=== PATIENT | female | born 1930 | race Caucasian/White ===

== ENCOUNTER 2017-04-23 22:19 | Emergency (ER) | payer MEDICARE, BC ==
--- NOTE | 2017-04-23 23:45 | ED ---
Chato Richardson Alok, scribed for Tavo Conde MD on 04/23/17 at 2335 . Head Injury - HPI Summary HPI Summary: 86F presents to the ED with lip and cheek swelling following fall. Pt fall was unwitnessed but [facility] staff report she was not using her walker and that her shoe lace may have been untied. PMHx includes dementia. - History Of Current Complaint Chief Complaint: EDHeadInjury Stated Complaint: FALL Time Seen by Provider: 04/23/17 23:26 Hx Obtained From: Patient, Family/Site Medical Director Hx From Patient Unobtainable Due To: Dementia Mechanism Of Injury: Fall From Height Of: Onset/Duration: Started Hours Ago, Traumatic, Still Present Severity Currently: Moderate Severity Initially: Moderate Pain Intensity: 2 Pain Scale Used: 0-10 Numeric Location: Discrete At: - lip and cheek - Allergies/Home Medications Allergies/Adverse Reactions: Allergies Allergy/AdvReac Type Severity Reaction Status Date / Time No Known Allergies Allergy Verified 05/31/16 03:05 PMH/Surg Hx/FS Hx/Imm Hx Endocrine/Hematology History: Denies: Hx Diabetes Cardiovascular History: Reports: Hx Hypertension Denies: Hx Pacemaker/ICD History: Denies: Hx Renal Disease, Other Problems/Disorders - bladder prolapse per ED report Sensory History: Reports: Hx Contacts or Glasses, Hx Hearing Aid Opthamlomology History: Reports: Hx Contacts or Glasses Neurological History: Reports: Hx Dementia Psychiatric History: Denies: Hx Panic Disorder - Surgical History Surgery Procedure, Year, and Place: hysterectomy, year unknown. CHOLYCESTECTOMY. CATARACT Infectious Disease History: Denies: Traveled Outside the [place] in Last 30 Days - Family History Known Family History: Positive: Unknown - Unobtainable due to pt poor historian - Social History Occupation: Retired Lives: [facility] Alcohol Use: Rare Hx Substance Use: No Substance Use Type: Reports: None Hx Tobacco Use: Yes Smoking Status (MU): Former Smoker Review of Systems Negative: Fever Positive: Edema - lip and cheek All Other Systems Reviewed And Are Negative: Yes Physical Exam Triage Information Reviewed: Yes Vital Signs On Initial Exam: Initial Vitals Temp Pulse Resp BP Pulse Ox 97.7 F 54 18 177/67 94 04/23/17 22:23 04/23/17 22:23 04/23/17 22:23 04/23/17 22:23 04/23/17 22:23 Vital Signs Reviewed: Yes Appearance: Positive: Well-Appearing, No Pain Distress Skin: Positive: Warm Head/Face: Positive: Other - mild sts and tendedrness rt infraorbital area Eyes: Positive: LILIA ENT: Positive: Hearing grossly normal Neck: Positive: Supple, Nontender Respiratory/Lung Sounds: Positive: Breath Sounds Present Cardiovascular: Positive: RRR Abdomen Description: Positive: Nontender, Soft Musculoskeletal: Positive: Strength/ROM Intact Neurological: Positive: Alert, Oriented to Person Place, Time Psychiatric: Positive: Affect/Mood Appropriate - [place] Coma Scale Best Eye Response: 4 - Spontaneous Best Motor Response: 6 - Obeys Commands Best Verbal Response: 5 - Oriented Diagnostics - Vital Signs Vital Signs Temp Pulse Resp BP Pulse Ox 04/23/17 22:23 97.7 F 54 18 177/67 94 - Laboratory Lab Statement: Any lab studies that have been ordered have been reviewed, and results considered in the medical decision making process. - CT Brain CT CT Interpretation: Positive (See Comments) - Findings: Involutional changes with moderate ventriculomegaly. Chronic microvascular changes in the cerebral white matter. No hemorrhage. Osseous structures are intact. CT Interpretation Completed By: Radiologist Maxiliofacial CT CT Interpretation: Positive (See Comments) - Findings: Negative for orbital or facial fracture. The globes and orbits are intact. CT Interpretation Completed By: Radiologist Re-Evaluation - Re-Evaluation First Eval Change: Improved Head Injury Course/Dx - Diagnoses Provider Diagnoses: Contusion of face Discharge - Discharge Plan Condition: Stable Disposition: HOME Patient Education Materials: Facial Contusion (ED) Referrals: Kelly Campos MD [Primary Care Provider] - The documentation as recorded by the Chato jackson Alok accurately reflects the service I personally performed and the decisions made by , Tavo Conde MD.
[2017-04-24 01:43] VITALS: BP 167/65
--- NOTE | 2017-04-24 07:54 | RAD ---
Indication: Fall. RIGHT face ecchymosis/contusion. Dementia. Comparison: July 09, 2016 Technique: Noncontrast CT vertex of skull through foramen magnum. Report: Moderately advanced prominence of the cerebral sulci and moderate prominence of the cerebellar fissures reflecting atrophy. Proportional enlargement of the ventricles. Decreased density in the periventricular and subcortical white matter while non-specific is most likely due to chronic microangiopathy. Negative for ta matter white matter obscuration, intra or extra-axial hemorrhage, or mass effect. Unremarkable orbital contents. No fracture of the calvarium or skull base evident. Negative for scalp hematoma. Clear visualized paranasal sinuses and mastoid air spaces. IMPRESSION: 1. No CT evidence for traumatic brain injury. 2. Atrophy and stigmata of chronic small vessel ischemic disease.
--- NOTE | 2017-04-24 07:57 | RAD ---
INDICATION: Fall with ecchymosis at the RIGHT face. Dementia. COMPARISON: July 09, 2016 CT. TECHNIQUE: Multidetector CT base of the skull through mandible without contrast. Multiplanar reformation. REPORT: Artifact from dental amalgam. Mild soft tissue edema at the RIGHT malar eminence. No loculated soft tissue hematoma evident. The orbital and maxillary sinus margins, zygomatic arches, lamina papyracea, base of the maxilla, pterygoid plates, and nasal bones are intact. The mandible is intact. Normal temporal mandibular joint alignment. Clear paranasal sinuses and mastoid air spaces. IMPRESSION: Mild soft tissue swelling at the RIGHT malar eminence. No evidence for facial fracture.
== END 2017-04-24 01:48 | disposition home or self-care (01) ==
LOC: ED 22:19
DX: S00.83XA Contusion of other part of head, initial encounter (principal); R60.1 Generalized edema; Z87.891 Personal history of nicotine dependence; W19.XXXA Unspecified fall, initial encounter; Y93.9 Activity, unspecified; Y92.9 Unspecified place or not applicable
CPT/HCPCS: 70450; 70486; 99283

== ENCOUNTER 2017-05-03 16:35 | Inpatient (IN) | payer MEDICARE, BC ==
[2017-05-03] MEDS ORDERED: NS 0.9% 1000 ML* 1,000 ML IV ONE (17:02)
--- NOTE | 2017-05-03 17:33 | RAD ---
INDICATION: Weakness COMPARISON: Chest x-ray dated July 05, 2016 TECHNIQUE: Single AP portable view of the chest was obtained. FINDINGS: Image quality is compromised due to the relative inferiority of a portable chest x-ray. There is a mild degree of cardiomegaly similar in appearance to the previous chest x-ray. Also similar is coarse atherosclerotic calcification overlying the arch of the aorta. The lung volumes appear reduced relative to the previous chest x-ray but this may be due to poor inspiratory effort. Alternatively there is consolidation of the bilateral lung bases and/or pleural effusion. Visualized bones are normal for the patient's age. IMPRESSION: Reduced lung volumes relative to the previous chest x-ray which may be the consequence of poor inspiratory effort. Potentially there is bibasilar consolidation and pleural effusion.
[2017-05-03 17:58] LABS: Hematocrit 36 % (35-47); Hemoglobin 11.8 g/dl (12.0-16.0); Mean Corpuscular HGB Conc 33 g/dl (31-36); Mean Corpuscular Hemoglobin 31 pg (27-31); Mean Corpuscular Volume 94 fL (80-97); Mean Platelet Volume 10 um3 (7.4-10.4); Red Blood Count 3.84 10^6/ul (4.0-5.4); Red Cell Distribution Width 14 % (10.5-15); White Blood Count 14.5 10^3/ul (3.5-10.8)
[2017-05-03 18:19] LABS: Albumin 3.4 g/dL (3.2-5.2); Ammonia 38 mol/L (16-53); BUN/Creatinine Ratio 18.8 (8-20); C Reactive Protein 172.45 mg/L (< 5.00); Calcium 9.1 mg/dL (8.6-10.3); EGFR African American 51.1 (>60); EGFR Non-African American 39.7 (>60); Magnesium 1.8 mg/dL (1.9-2.7); Total Bilirubin 0.6 mg/dL (0.2-1.0); Total Protein 6.4 g/dL (6.4-8.9)
[2017-05-03 18:21] LABS: Troponin I 0.03 ng/mL (<0.04)
[2017-05-03 18:23] LABS: B Type Natriuretic Peptide 70 pg/mL
[2017-05-03 18:53] LABS: TSH (Thyroid Stimulating Horm) 1.05 mcIU/mL (0.34-5.60)
[2017-05-03] MEDS ORDERED: Levofloxacin 500 MG IVPREMIX(* 500 MG/100 ML BAG IVPB ONE (19:06)
--- NOTE | 2017-05-03 19:13 | RAD ---
indication: Increasing weakness. Trauma to the right orbit sustained after a April 23, 2017 fall. COMPARISON: CT of the brain April 24, 2017, CT maxillofacial bones April 24, [address] scan of the brain, maxillofacial bones and c-spine was performed without intravenous contrast enhancement. Contiguous axial sections were obtained from the lung apices through the vertex of the skull. BRAIN: The ventricles, cisterns and sulci exhibit symmetric and stable involutional changes. Again seen is moderate periventricular and subcortical white matter hypoattenuation most consistent with chronic microvascular disease. No significant focal abnormality or mass effect is seen. The mello-white differentiation is adequately maintained. There is no evidence for intracranial hemorrhage. The calvarium is intact without radiographically apparent fracture. The mastoid air cells are appropriately aerated. FACIAL BONES: At the level of the maxilla evaluation is obscured by streak artifact from dental prostheses and amalgam. Bones: There is no displaced fracture or dislocation. The orbital rim is intact. The zygomatic arch is intact. The pterygoid plates are intact Orbits: The globes are round. The optic nerves are symmetric. The extraocular musculature is normal. There is no post septal or intraconal inflammatory change. There is no retrobulbar hematoma. Paranasal Sinuses: There are inspissated secretions in the right maxillary sinus. There is mild to moderate mucosal thickening of the bilateral ethmoid air cells. C-SPINE: Evaluation is limited of the upper cervical spine by streak artifact caused by dental amalgam. There is the appearance of malalignment of C2 over C3 but this appears to be due to metal streak and/or motion artifact. Again seen is straightening of the normal cervical lordosis but the vertebral bodies and facet joints are otherwise appropriately aligned. Again seen are degenerative changes at multiple levels most severely affecting C5-C7 where there is loss of intervertebral disc and marginal osteophyte formation. There is no acute fracture. The dens is intact. There is no widening of the atlantodental interval. There is no prevertebral soft tissue swelling. There is no prevertebral soft tissue swelling. There is no hyperdense material in the cervical canal to indicate hemorrhage. The visualized musculature and soft tissues are normal. At the T3 vertebral body there is interval appearance of a lucency with a sclerotic rim occupying the left pedicle and left vertebral body (sagittal image 52). This was not seen on the previous CT examination. There is also loss of T3 vertebral height relative to the previous CT examination best depicted on the coronal plane images (image 12). There is no gross lymphadenopathy visualized. The visualized portion of the lung apices are clear. IMPRESSION: 1. No acute calvarial fracture or acute intracranial hemorrhage. 2. No acute facial bone fractures. 3. No acute fracture or dislocation of the cervical spine. 4. Chronic and degenerative changes described in the body the report unchanged from prior similar CT imaging.
[2017-05-03] MEDS ORDERED: Acetaminophen TAB* 325 MG PO PRN (20:27)
[2017-05-03] MEDS ORDERED: Ondansetron INJ* 2 MG/ML VIAL IV PRN (20:28)
[2017-05-03] MEDS ORDERED: Dextrose 50% Syringe 50 ML* 25 GM/50 ML SYRINGE IV PUSH PRN (20:28)
[2017-05-03] MEDS ORDERED: NS 0.9% 1000 ML* 1,000 ML IV SCH (20:30)
--- NOTE | 2017-05-03 21:06 | ED ---
Jose Richardson Angela, scribed for Gerald oHrvath MD on 05/03/17 at 1713 . Altered Mental Status - HPI Summary HPI Summary: 86 y/o female [facility] from [facility] accompanied by wild animal caretaker presents to the ED c/o increased confusion, difficulty ambulating and overall weakness, worse this morning. Pt reports she fell on 04/23/17 and sustained an ecchymosis on her face. Per rn complex care, pt has had difficulty eating. Pt denies difficulty speaking, abdominal pain, bowel or urinary problems, or neck pain. - History Of Current Complaint Chief Complaint: EDGeneral Stated Complaint: FALL/HEAD INJURY Time Seen by Provider: 05/03/17 16:44 Hx Obtained From: Patient, Family/Test Deskman - Test Deskman Onset/Duration: Still Present Timing: Lasting Days Aggravating Factor(s): Nothing Alleviating Factor(s): Nothing Associated Signs And Symptoms: Positive: Weakness, Recent Trauma - Allergies/Home Medications Allergies/Adverse Reactions: Allergies Allergy/AdvReac Type Severity Reaction Status Date / Time No Known Allergies Allergy Verified 05/31/16 03:05 PMH/Surg Hx/FS Hx/Imm Hx Endocrine/Hematology History: Denies: Hx Diabetes Cardiovascular History: Reports: Hx Hypertension Denies: Hx Pacemaker/ICD History: Denies: Hx Renal Disease, Other Problems/Disorders - bladder prolapse per ED report Sensory History: Reports: Hx Contacts or Glasses, Hx Hearing Aid Opthamlomology History: Reports: Hx Contacts or Glasses Neurological History: Reports: Hx Dementia Psychiatric History: Denies: Hx Panic Disorder - Surgical History Surgery Procedure, Year, and Place: hysterectomy, year unknown. CHOLYCESTECTOMY. CATARACT Infectious Disease History: Denies: Traveled Outside the [place] in Last 30 Days - Family History Known Family History: Positive: Unknown - Unobtainable due to pt poor historian - Social History Alcohol Use: Rare Hx Substance Use: No Substance Use Type: Reports: None Hx Tobacco Use: Yes Smoking Status (MU): Former Smoker Review of Systems Negative: Abdominal Pain Genitourinary: Negative Positive: Other - NEGATIVE: neck pain Positive: Bruising - s/p fall Positive: Weakness. Negative: Slurred Speech All Other Systems Reviewed And Are Negative: Yes Physical Exam - Summary Physical Exam Summary: General: well-appearing, no pain distress. Generalized weakness. Somewhat quiet. Skin: warm, color reflects adequate perfusion, dry Head: normal Eyes: EOMI, LILIA, ecchymosis under R orbit. ENT: normal Neck: supple, nontender Respiratory: CTA, breath sounds present Cardiovascular: RRR Abdomen: soft, nontender Bowel: present Musculoskeletal: normal, strength/ROM intact Neurological: normal, sensory/motor intact, A&O x3 Psychological: affect/mood appropriate GCS: 15 NIH scale: normal face, normal arms. Both legs have effort against gravity. Triage Information Reviewed: Yes Vital Signs On Initial Exam: Initial Vitals Temp Pulse Resp BP Pulse Ox 99.7 F 75 16 126/56 94 05/03/17 16:37 05/03/17 16:37 05/03/17 16:37 05/03/17 16:37 05/03/17 16:37 Vital Signs Reviewed: Yes Diagnostics - Vital Signs Vital Signs Temp Pulse Resp BP Pulse Ox 05/03/17 16:37 99.7 F 75 16 126/56 94 - Laboratory Lab Results: Lab Results 05/03/17 05/03/17 05/03/17 Range/Units 17:45 17:45 17:45 WBC 14.5 H (3.5-10.8) 10^3/ul RBC 3.84 L (4.0-5.4) 10^6/ul Hgb 11.8 L (12.0-16.0) g/dl Hct 36 (35-47) % MCV 94 (80-97) fL MCH 31 (27-31) pg MCHC 33 (31-36) g/dl RDW 14 (10.5-15) % Plt Count 194 (150-450) 10^3/ul MPV 10 (7.4-10.4) um3 Neut % (Auto) 77.4 (38-83) % Lymph % (Auto) 10.8 L (25-47) % [place] % (Auto) 9.7 H (1-9) % Eos % (Auto) 1.2 (0-6) % Baso % (Auto) 0.9 (0-2) % Absolute Neuts (auto) 11.2 H (1.5-7.7) 10^3/ul Absolute Lymphs (auto) 1.6 (1.0-4.8) 10^3/ul Absolute Monos (auto) 1.4 H (0-0.8) 10^3/ul Absolute Eos (auto) 0.2 (0-0.6) 10^3/ul Absolute Basos (auto) 0.1 (0-0.2) 10^3/ul Absolute Nucleated RBC 0.01 10^3/ul Nucleated RBC % 0.1 INR (Anticoag Therapy) 0.97 (0.89-1.11) APTT 25.3 L (26.0-36.3) seconds Sodium 130 L (133-145) mmol/L Potassium 4.0 (3.5-5.0) mmol/L Chloride 96 L (101-111) mmol/L Carbon Dioxide 27 (22-32) mmol/L Anion Gap 7 (2-11) mmol/L BUN 24 (6-24) mg/dL Creatinine 1.28 H (0.51-0.95) mg/dL Est GFR ( Amer) 51.1 (>60) Est GFR (Non-Af Amer) 39.7 (>60) BUN/Creatinine Ratio 18.8 (8-20) Glucose 113 H (70-100) mg/dL Lactic Acid (0.5-2.0) mmol/L Calcium 9.1 (8.6-10.3) mg/dL Magnesium 1.8 L (1.9-2.7) mg/dL Total Bilirubin 0.60 (0.2-1.0) mg/dL AST 39 (13-39) U/L ALT 50 (7-52) U/L Alkaline Phosphatase 67 (34-104) U/L Ammonia (16-53) mol/L Total Creatine Kinase 52 (10-223) U/L CK-MB (CK-2) 1.6 (0.6-6.3) ng/mL Troponin I 0.03 (<0.04) ng/mL C-Reactive Protein 172.45 H (< 5.00) mg/L B-Natriuretic Peptide ( - 100) pg/mL Total Protein 6.4 (6.4-8.9) g/dL Albumin 3.4 (3.2-5.2) g/dL Globulin 3.0 (2-4) g/dL Albumin/Globulin Ratio 1.1 (1-3) Lipase 17 (11.0-82.0) U/L TSH 1.05 (0.34-5.60) mcIU/mL 05/03/17 05/03/17 Range/Units 17:45 17:50 WBC (3.5-10.8) 10^3/ul RBC (4.0-5.4) 10^6/ul Hgb (12.0-16.0) g/dl Hct (35-47) % MCV (80-97) fL MCH (27-31) pg MCHC (31-36) g/dl RDW (10.5-15) % Plt Count (150-450) 10^3/ul MPV (7.4-10.4) um3 Neut % (Auto) (38-83) % Lymph % (Auto) (25-47) % [place] % (Auto) (1-9) % Eos % (Auto) (0-6) % Baso % (Auto) (0-2) % Absolute Neuts (auto) (1.5-7.7) 10^3/ul Absolute Lymphs (auto) (1.0-4.8) 10^3/ul Absolute Monos (auto) (0-0.8) 10^3/ul Absolute Eos (auto) (0-0.6) 10^3/ul Absolute Basos (auto) (0-0.2) 10^3/ul Absolute Nucleated RBC 10^3/ul Nucleated RBC % INR (Anticoag Therapy) (0.89-1.11) APTT (26.0-36.3) seconds Sodium (133-145) mmol/L Potassium (3.5-5.0) mmol/L Chloride (101-111) mmol/L Carbon Dioxide (22-32) mmol/L Anion Gap (2-11) mmol/L BUN (6-24) mg/dL Creatinine (0.51-0.95) mg/dL Est GFR ( Amer) (>60) Est GFR (Non-Af Amer) (>60) BUN/Creatinine Ratio (8-20) Glucose (70-100) mg/dL Lactic Acid 0.9 (0.5-2.0) mmol/L Calcium (8.6-10.3) mg/dL Magnesium (1.9-2.7) mg/dL Total Bilirubin (0.2-1.0) mg/dL AST (13-39) U/L ALT (7-52) U/L Alkaline Phosphatase (34-104) U/L Ammonia 38 (16-53) mol/L Total Creatine Kinase (10-223) U/L CK-MB (CK-2) (0.6-6.3) ng/mL Troponin I (<0.04) ng/mL C-Reactive Protein (< 5.00) mg/L B-Natriuretic Peptide 70 ( - 100) pg/mL Total Protein (6.4-8.9) g/dL Albumin (3.2-5.2) g/dL Globulin (2-4) g/dL Albumin/Globulin Ratio (1-3) Lipase (11.0-82.0) U/L TSH (0.34-5.60) mcIU/mL Result Diagrams: 05/03/17 17:45 05/03/17 17:45 Lab Statement: Any lab studies that have been ordered have been reviewed, and results considered in the medical decision making process. - Radiology Chest XR Xray Interpretation: Positive (See Comments) - IMPRESSION: Reduced lung volumes relative to the previous chest x-ray which may be the consequence of poor inspiratory effort. Potentially there is bibasilar consolidation and pleural effusion. Radiology Interpretation Completed By: Radiologist - CT CT Brain CT Interpretation: No Acute Changes - IMPRESSION: 1. No acute calvarial fracture or acute intracranial hemorrhage. 2. No acute facial bone fractures. 3. No acute fracture or dislocation of the cervical spine. 4. Chronic and degenerative changes described in the body the report unchanged from prior similar CT imaging. CT Interpretation Completed By: Radiologist CT Maxillofacial CT Interpretation: No Acute Changes - IMPRESSION: 1. No acute calvarial fracture or acute intracranial hemorrhage. 2. No acute facial bone fractures. 3. No acute fracture or dislocation of the cervical spine. 4. Chronic and degenerative changes described in the body the report unchanged from prior similar CT imaging. CT Interpretation Completed By: Radiologist CT C-Spine CT Interpretation: No Acute Changes - IMPRESSION: 1. No acute calvarial fracture or acute intracranial hemorrhage. 2. No acute facial bone fractures. 3. No acute fracture or dislocation of the cervical spine. 4. Chronic and degenerative changes described in the body the report unchanged from prior similar CT imaging. CT Interpretation Completed By: Radiologist Altered Mental Statu Course/Dx - Course Course Of Treatment: DISCUSSED RESULTS WITH PATIENT. ADMIT HOSPITALIST STABLE. NO CRITICAL CARE TIME. - Diagnoses Discharge Diagnoses: Weakness, Altered mental state, Pneumonia - Provider Notifications Discussed Care Of Patient With: Sarai Sims Time Discussed With Above Provider: 19:00 Instructed by Provider To: Other - She agreed to accept pt as long as the C- spine CT is negative. Discharge - Discharge Plan Condition: Stable Disposition: ADMITTED TO [facility] The documentation as recorded by the Jose jackson Angela accurately reflects the service I personally performed and the decisions made by me, Gerald Horvath MD.
[2017-05-03] MEDS: Metoprolol Tartrate TAB* 25 MG PO SCH (22:15)
[2017-05-03] MEDS: Heparin VIAL(*) 5000 UNITS/ML VIAL (FIVE THOUSAND) SUBCUT SCH (22:16)
--- NOTE | 2017-05-03 22:22 | HP ---
CC: Dr. Jesus* [facility] MEDICINE HISTORY AND PHYSICAL: DATE OF ADMISSION: 05/03/17 ATTENDING PHYSICIAN: Dr. Carly Dodson * (dictation provided by Vero Bañuelos NP ). CHIEF COMPLAINT: Confusion. HISTORY OF PRESENT ILLNESS: Ms. Tatum is an 86-year-old female with a past medical history of dementia, hypertension, and diabetes, who presents today to the hospital with confusion. Ms. Tatum was not able to provide information and the information was obtained from the electronic medical record and the records sent over from [facility]. Per the report, Ms. Tatum fell approximately 2 weeks ago. She was seen here in our ER on 04/23/17; at which time, she had a CT brain that was normal and maxillofacial CT that showed no acute fracture. She returned to [facility] and since that time, she has been confused. They have noted that she is more lethargic, that she is sleeping more than usual. Normally, she is able to feed herself independently, but she is now requiring cues. They have noted no other sign of illness. She is not complaining of any discomfort. She has no cough. Her vitals there have been stable. In the emergency room, Ms. Tatum had repeat CT scans of brain, maxillofacial area. Both of these were negative. She also had a cervical spine CT that was negative. Her labs, however, show that she has leukocytosis with a white blood cell count of 14.5 and hyponatremia with a sodium of 130 and a mild elevation in her creatinine to 1.21. Her CRP is also 172.45. Her chest x-ray is suboptimal, but it did show concern for a possible atelectasis versus basilar consolidation or pleural effusion, but again this is a poor study. A urinalysis is pending. PAST MEDICAL HISTORY: 1. Dementia. 2. Hypertension. 3. Hyperlipidemia. 4. Hypothyroidism. 5. Severe cystocele. 6. Type 2 diabetes, [id number]. 7. Paroxysmal atrial fibrillation. MEDICATIONS: 1. Fosamax 70 mg p.o. daily. 2. Hydrochlorothiazide 12.5 mg p.o. daily. 3. Levothyroxine 75 mcg p.o. daily. 4. Lisinopril 40 mg p.o. daily. 5. Ranitidine 150 mg p.o. b.i.d. 6. Simvastatin 10 mg p.o. at bedtime. 7. Tylenol 650 mg p.o. q.4 hours p.r.n. 8. Vitamin D3 1000 units p.o. daily. 9. Aspirin 81 mg p.o. daily. 10. Donepezil 5 mg p.o. daily. ALLERGIES: No known drug allergies. FAMILY HISTORY: Per the report, mother had dementia. Father had [place] and scarlet fever. SOCIAL HISTORY: The patient was reported to be a former smoker. No report of alcohol or drug use. She lives at [facility]. Her daughter, Rohini Michael, is the healthcare proxy. REVIEW OF SYSTEMS: A 14-point review of systems was attempted on Ms. Tatum, but she is denying any problems today. PHYSICAL EXAMINATION GENERAL: Ms. Tatum is lying in the bed. She is in no acute distress. VITAL SIGNS: Temperature 98.2, heart rate 84, respiratory rate 18, O2 saturation 97% on room air, blood pressure 142/72. LUNGS: Clear to auscultation bilaterally with no accessory muscle use and good aeration. HEART: S1, S2. No murmur, rub, or gallop and regular. ABDOMEN: Soft, nontender with bowel sounds positive x4. EXTREMITIES: No cyanosis or edema. SKIN: Intact. NEUROLOGIC: She is alert. She is oriented x3. She moves all extremities equally. There is no facial asymmetry or focal weakness. Extraocular movements are intact. DIAGNOSTIC STUDIES/LAB DATA: Sodium 130, potassium 4.0, chloride 96, serum bicarbonate 27, BUN 24, creatinine 1.28, glucose 130, lactic acid 0.9. Magnesium 1.8. CRP 172.45. Troponin 0.03. WBC 14.5, hemoglobin 11.8, hematocrit 36, platelet count 194. CT brain, cervical spine CT, maxillofacial CT also no acute fracture. Chest x-ray is read as reduced lung volumes related to the previous chest x-ray which may be the result of poor inspiratory effort, potentially there is bibasilar consolidation and pleural effusion." ASSESSMENT: Ms. Tatum is an 86-year-old female with past medical history of dementia, hypertension, and diabetes, who presents to the hospital today with concern for confusion and weakness. Our plans are for observation in the hospital for the followin. Confusion and weakness: The patient had a recent fall, but again imaging shows no acute injury. I suspect that perhaps she has an infection, likely urinary tract infection or pneumonia and will be treated as per below. 2. Pneumonia. The patient's x-ray shows concern for possible pneumonia, but this is a very poor study. The patient did get 1 dose of Levaquin in the emergency room. I am going to hold further treatment pending review of urinalysis. 3. Question of urinary tract infection. The patient has history of multiple urinary tract infections and based on her leukocytosis and elevated CRP I am highly suspicious for repeat infection. Plan to await the UA and treat as indicated. 4. Hypertension. Plan to hold lisinopril and hydrochlorothiazide during acute illness. 5. Hypothyroidism. Continue levothyroxine. 6. Type 2 diabetes. Plan to hold metformin and provide lispro sliding scale insulin with meals. She will have a consistent carbohydrate diet. 7. DVT prophylaxis with heparin subcu. 8. Disposition to the medical floor. TIME SPENT: Approximately 60 minutes were spent on admission of this patient, more than half time spent with the patient at the bedside reviewing the events leading up to this hospital, performing the physical examination, and reviewing the plan of care. VERO BAÑUELOS NP [id number]/[facility] #: [id number] LALITA
[2017-05-04 04:54] LABS: Hematocrit 35 % (35-47); Hemoglobin 11.7 g/dl (12.0-16.0); Mean Corpuscular HGB Conc 33 g/dl (31-36); Mean Corpuscular Hemoglobin 32 pg (27-31); Mean Corpuscular Volume 95 fL (80-97); Mean Platelet Volume 11 um3 (7.4-10.4); Red Blood Count 3.67 10^6/ul (4.0-5.4); Red Cell Distribution Width 13 % (10.5-15); White Blood Count 10.4 10^3/ul (3.5-10.8)
[2017-05-04 04:57] LABS: BUN/Creatinine Ratio 21.6 (8-20); Calcium 8.7 mg/dL (8.6-10.3); EGFR African American 78.7 (>60); EGFR Non-African American 61.2 (>60); Potassium 3.9 mmol/L (3.5-5.0)
[2017-05-04] MEDS: Levothyroxine TAB* 75 MCG TAB PO SCH (05:58)
[2017-05-04] MEDS: Heparin VIAL(*) 5000 UNITS/ML VIAL (FIVE THOUSAND) SUBCUT SCH ×3 (05:58→21:03)
[2017-05-04] MEDS ORDERED: Levofloxacin 750 MG IVPREMIX(* 750 MG/150 ML BAG IVPB SCH ×2 (08:00→21:00)
[2017-05-04] MEDS: Insulin LISPRO* 1 UNITS UNIT SUBCUT SCH ×3 (09:32→17:50)
[2017-05-04] MEDS: Metoprolol Tartrate TAB* 25 MG PO SCH ×2 (09:36→21:04)
[2017-05-04] MEDS: Aspirin EC Low Dose* 81 MG TAB.EC PO SCH (09:36)
[2017-05-04] MEDS: Donepezil TAB* 5 MG PO SCH (09:36)
[2017-05-04 13:10] LABS: Urine Bacteria Absent (Absent); Urine Bilirubin Negative (Negative); Urine Glucose Negative (Negative); Urine Nitrite Negative (Negative)
--- NOTE | 2017-05-04 13:32 | PN ---
Subjective Date of Service: 05/04/17 Interval History: HOSPITALIST PROGRESS NOTE Patient seen and examined at bedside. She offers no complaints at this time. Does not appear to be confused, she knows she's in the hospital because she fell and people at [facility] were concerned she could have an infection. Family History: Unchanged from Admission Social History: Unchanged from Admission Past Medical History: Unchanged from Admission Objective Active Medications: Acetaminophen (Tylenol Tab*) 650 mg PO Q6H PRN PRN Reason: PAIN Aspirin (Aspirin Ec Low Dose*) 81 mg PO DAILY [facility] Last Admin: 05/04/17 09:36 Dose: 81 mg Dextrose (D50w Syringe 50 Ml*) 12.5 gm IV PUSH .FOR FS < 60 - SS PRN PRN Reason: FS < 60 Donepezil HCl (Aricept Tab*) 5 mg PO DAILY [facility] Last Admin: 05/04/17 09:36 Dose: 5 mg Heparin Sodium (Porcine) (Heparin Vial(*)) 5,000 units SUBCUT Q8HR [facility] Last Admin: 05/04/17 05:58 Dose: 5,000 units Levofloxacin/Dextrose (Levaquin 750 Mg Ivpremix(*)) 750 mg in 150 mls @ 100 mls /hr IVPB Q48H [facility] Insulin Human Lispro (Humalog*) 0 units SUBCUT AC [facility] PRN Reason: Protocol Last Admin: 05/04/17 12:17 Dose: 2 units Levothyroxine Sodium (Synthroid Tab*) 75 mcg PO DAILY@0600 [facility] Last Admin: 05/04/17 05:58 Dose: 75 mcg Metoprolol Tartrate (Lopressor Tab*) 12.5 mg PO Q12HR [facility] Last Admin: 05/04/17 09:36 Dose: 12.5 mg Ondansetron HCl (Zofran Inj*) 4 mg IV Q6H PRN PRN Reason: NAUSEA Vital Signs 05/03/17 05/04/17 05/04/17 23:24 04:25 08:11 Temperature 98.6 F 98.1 F 98.0 F Pulse Rate 65 75 73 Respiratory 16 16 16 Rate Blood Pressure 134/55 141/54 118/46 (mmHg) O2 Sat by Pulse 97 96 96 Oximetry Oxygen Devices in Use Now: None Appearance: Elderly lady sitting up in a recliner in [facility]. Eyes: No Scleral Icterus Ears/Nose/Mouth/Throat: Mucous Membranes Moist Neck: Trachea Midline Respiratory: Symmetrical Chest Expansion and Respiratory Effort, Clear to Auscultation Cardiovascular: RRR - Normal S1 and s2 Abdominal: NL Sounds; No Tenderness; No Distention Neurological: - - AAox2 (self and place), BA[place]ISTA Lines/Tubes/Other Access: Clean, Dry and Intact Peripheral IV Nutrition: Taking PO's Result Diagrams: 05/04/17 04:33 05/04/17 04:33 Assess/Plan/Problems-Billing Assessment: Mrs. Tatum is an 86yo F with PMH of dementia, HTN, HLD, hypothyroidism, severe cystocele, type 2 DM, paroxysmal afib, who presented to ED with worsening confusion. - Patient Problems (1) Confusion Comment: - Etiology unclear at this time. - She did have leukocytosis and elevated CRP on admission, but no clear source of infection so far. - CxR showed bilateral lower lobe consolidation suggestive of atelectasis. She has no c/o dyspnea or cough. - Awaiting UA. - Will change Levofloxacin to Ceftriaxone/Zithromax. (2) Fall Comment: - CT brain, cervical spine, maxillofacial, negative for fractures. - PT consult. (3) Hypertension Comment: - Controlled. - Continue Metoprolol. (4) Type 2 diabetes mellitus Comment: - Controlled. - Continue Lispro SS. (5) DVT prophylaxis Comment: - SQ heparin. Status and Disposition: Change to inpatient.
[2017-05-04] MEDS: cefTRIAXone VIAL(*) 1,000 MG in NS 0.9% 50 ML* 50 ML IVPB SCH (14:21)
[2017-05-04] MEDS: Azithromycin IV(*) 500 MG in NS 0.9% 250 ML* 250 ML IVPB SCH (15:09)
[2017-05-05 05:18] LABS: Hematocrit 32 % (35-47); Hemoglobin 10.5 g/dl (12.0-16.0); Mean Corpuscular HGB Conc 33 g/dl (31-36); Mean Corpuscular Hemoglobin 31 pg (27-31); Mean Corpuscular Volume 94 fL (80-97); Mean Platelet Volume 9 um3 (7.4-10.4); Red Blood Count 3.39 10^6/ul (4.0-5.4); Red Cell Distribution Width 13 % (10.5-15); White Blood Count 7.3 10^3/ul (3.5-10.8)
[2017-05-05 05:35] LABS: BUN/Creatinine Ratio 25.5 (8-20); C Reactive Protein 92.3 mg/L (< 5.00); Calcium 8.4 mg/dL (8.6-10.3); EGFR Non-African American 56.7 (>60); Potassium 3.8 mmol/L (3.5-5.0)
[2017-05-05] MEDS: Heparin VIAL(*) 5000 UNITS/ML VIAL (FIVE THOUSAND) SUBCUT SCH ×3 (05:54→20:35)
[2017-05-05] MEDS: Levothyroxine TAB* 75 MCG TAB PO SCH (05:54)
[2017-05-05] MEDS: Insulin LISPRO* 1 UNITS UNIT SUBCUT SCH ×3 (08:09→18:03)
[2017-05-05] MEDS: Donepezil TAB* 5 MG PO SCH (10:29)
[2017-05-05] MEDS: Metoprolol Tartrate TAB* 25 MG PO SCH ×2 (10:29→20:35)
[2017-05-05] MEDS: Aspirin EC Low Dose* 81 MG TAB.EC PO SCH (10:29)
[2017-05-05] MEDS: cefTRIAXone VIAL(*) 1,000 MG in NS 0.9% 50 ML* 50 ML IVPB SCH (14:16)
[2017-05-05] MEDS: Azithromycin IV(*) 500 MG in NS 0.9% 250 ML* 250 ML IVPB SCH (14:35)
--- NOTE | 2017-05-05 16:13 | PN ---
Subjective Date of Service: 05/05/17 Interval History: Pt has significant dementia, no short term memory Family History: Unchanged from Admission Social History: Unchanged from Admission Past Medical History: Unchanged from Admission Objective Active Medications: Acetaminophen (Tylenol Tab*) 650 mg PO Q6H PRN PRN Reason: PAIN Last Admin: 05/05/17 00:45 Dose: 650 mg Aspirin (Aspirin Ec Low Dose*) 81 mg PO DAILY [facility] Last Admin: 05/05/17 10:29 Dose: 81 mg Dextrose (D50w Syringe 50 Ml*) 12.5 gm IV PUSH .FOR FS < 60 - SS PRN PRN Reason: FS < 60 Donepezil HCl (Aricept Tab*) 5 mg PO DAILY [facility] Last Admin: 05/05/17 10:29 Dose: 5 mg Heparin Sodium (Porcine) (Heparin Vial(*)) 5,000 units SUBCUT Q8HR [facility] Last Admin: 05/05/17 14:17 Dose: 5,000 units Ceftriaxone Sodium 1,000 mg/ (Sodium Chloride) 50 mls @ 200 mls/hr IVPB Q24H [facility] Last Admin: 05/05/17 14:16 Dose: 200 mls/hr Azithromycin 500 mg/ Sodium (Chloride) 250 mls @ 250 mls/hr IVPB Q24H [facility] Last Admin: 05/05/17 14:35 Dose: 250 mls/hr Insulin Human Lispro (Humalog*) 0 units SUBCUT AC [facility] PRN Reason: Protocol Last Admin: 05/05/17 12:05 Dose: Not Given Levothyroxine Sodium (Synthroid Tab*) 75 mcg PO DAILY@0600 [facility] Last Admin: 05/05/17 05:54 Dose: 75 mcg Metoprolol Tartrate (Lopressor Tab*) 12.5 mg PO Q12HR [facility] Last Admin: 05/05/17 10:29 Dose: 12.5 mg Vital Signs 05/04/17 05/04/17 05/04/17 19:44 20:33 23:41 Temperature 98.2 F 98.0 F Pulse Rate 80 66 Respiratory 16 16 20 Rate Blood Pressure 148/61 172/59 (mmHg) O2 Sat by Pulse 97 95 Oximetry 05/05/17 05/05/17 07:27 08:00 Temperature 97.7 F Pulse Rate 64 Respiratory 18 20 Rate Blood Pressure 146/50 (mmHg) O2 Sat by Pulse 97 Oximetry Oxygen Devices in Use Now: None Appearance: 86 yo f in nAD, oriented to self only Eyes: No Scleral Icterus, PERRLA Ears/Nose/Mouth/Throat: NL Teeth, Lips, Gums, Mucous Membranes Moist Neck: NL Appearance and Movements; NL JVP, Trachea Midline Respiratory: Symmetrical Chest Expansion and Respiratory Effort, - - coarse breath sounds b/l Cardiovascular: NL Sounds; No Murmurs; No JVD, RRR Abdominal: NL Sounds; No Tenderness; No Distention Lymphatic: No Cervical Adenopathy Extremities: No Clubbing, Cyanosis, - - trace pedeal edema b/l Skin: No Nodules or Sclerosis, - - ecchymoses on b/l hads and R cheek Neurological: NL Muscle Strength and Tone Result Diagrams: 05/05/17 05:06 05/05/17 05:06 Additional Lab and Data: Lab Results 05/03/17 05/03/17 05/03/17 Range/Units 17:45 17:45 17:45 WBC 14.5 H (3.5-10.8) 10^3/ul RBC 3.84 L (4.0-5.4) 10^6/ul Hgb 11.8 L (12.0-16.0) g/dl Hct 36 (35-47) % MCV 94 (80-97) fL MCH 31 (27-31) pg MCHC 33 (31-36) g/dl RDW 14 (10.5-15) % Plt Count 194 (150-450) 10^3/ul MPV 10 (7.4-10.4) um3 Neut % (Auto) 77.4 (38-83) % Lymph % (Auto) 10.8 L (25-47) % [place] % (Auto) 9.7 H (1-9) % Eos % (Auto) 1.2 (0-6) % Baso % (Auto) 0.9 (0-2) % Absolute Neuts (auto) 11.2 H (1.5-7.7) 10^3/ul Absolute Lymphs (auto) 1.6 (1.0-4.8) 10^3/ul Absolute Monos (auto) 1.4 H (0-0.8) 10^3/ul Absolute Eos (auto) 0.2 (0-0.6) 10^3/ul Absolute Basos (auto) 0.1 (0-0.2) 10^3/ul Absolute Nucleated RBC 0.01 10^3/ul Nucleated RBC % 0.1 INR (Anticoag Therapy) 0.97 (0.89-1.11) APTT 25.3 L (26.0-36.3) seconds Sodium 130 L (133-145) mmol/L Potassium 4.0 (3.5-5.0) mmol/L Chloride 96 L (101-111) mmol/L Carbon Dioxide 27 (22-32) mmol/L Anion Gap 7 (2-11) mmol/L BUN 24 (6-24) mg/dL Creatinine 1.28 H (0.51-0.95) mg/dL Est GFR ( Amer) 51.1 (>60) Est GFR (Non-Af Amer) 39.7 (>60) BUN/Creatinine Ratio 18.8 (8-20) Glucose 113 H (70-100) mg/dL Lactic Acid (0.5-2.0) mmol/L Calcium 9.1 (8.6-10.3) mg/dL Magnesium 1.8 L (1.9-2.7) mg/dL Total Bilirubin 0.60 (0.2-1.0) mg/dL AST 39 (13-39) U/L ALT 50 (7-52) U/L Alkaline Phosphatase 67 (34-104) U/L Ammonia (16-53) mol/L Total Creatine Kinase 52 (10-223) U/L CK-MB (CK-2) 1.6 (0.6-6.3) ng/mL Troponin I 0.03 (<0.04) ng/mL C-Reactive Protein 172.45 H (< 5.00) mg/L B-Natriuretic Peptide ( - 100) pg/mL Total Protein 6.4 (6.4-8.9) g/dL Albumin 3.4 (3.2-5.2) g/dL Globulin 3.0 (2-4) g/dL Albumin/Globulin Ratio 1.1 (1-3) Lipase 17 (11.0-82.0) U/L TSH 1.05 (0.34-5.60) mcIU/mL 08/09/17 08/09/17 Range/Units 17:45 17:50 WBC (3.5-10.8) 10^3/ul RBC (4.0-5.4) 10^6/ul Hgb (12.0-16.0) g/dl Hct (35-47) % MCV (80-97) fL MCH (27-31) pg MCHC (31-36) g/dl RDW (10.5-15) % Plt Count (150-450) 10^3/ul MPV (7.4-10.4) um3 Neut % (Auto) (38-83) % Lymph % (Auto) (25-47) % [place] % (Auto) (1-9) % Eos % (Auto) (0-6) % Baso % (Auto) (0-2) % Absolute Neuts (auto) (1.5-7.7) 10^3/ul Absolute Lymphs (auto) (1.0-4.8) 10^3/ul Absolute Monos (auto) (0-0.8) 10^3/ul Absolute Eos (auto) (0-0.6) 10^3/ul Absolute Basos (auto) (0-0.2) 10^3/ul Absolute Nucleated RBC 10^3/ul Nucleated RBC % INR (Anticoag Therapy) (0.89-1.11) APTT (26.0-36.3) seconds Sodium (133-145) mmol/L Potassium (3.5-5.0) mmol/L Chloride (101-111) mmol/L Carbon Dioxide (22-32) mmol/L Anion Gap (2-11) mmol/L BUN (6-24) mg/dL Creatinine (0.51-0.95) mg/dL Est GFR ( Amer) (>60) Est GFR (Non-Af Amer) (>60) BUN/Creatinine Ratio (8-20) Glucose (70-100) mg/dL Lactic Acid 0.9 (0.5-2.0) mmol/L Calcium (8.6-10.3) mg/dL Magnesium (1.9-2.7) mg/dL Total Bilirubin (0.2-1.0) mg/dL AST (13-39) U/L ALT (7-52) U/L Alkaline Phosphatase (34-104) U/L Ammonia 38 (16-53) mol/L Total Creatine Kinase (10-223) U/L CK-MB (CK-2) (0.6-6.3) ng/mL Troponin I (<0.04) ng/mL C-Reactive Protein (< 5.00) mg/L B-Natriuretic Peptide 70 ( - 100) pg/mL Total Protein (6.4-8.9) g/dL Albumin (3.2-5.2) g/dL Globulin (2-4) g/dL Albumin/Globulin Ratio (1-3) Lipase (11.0-82.0) U/L TSH (0.34-5.60) mcIU/mL Assess/Plan/Problems-Billing Assessment: Mrs. Tatum is an 86yo F with PMH of dementia, HTN, HLD, hypothyroidism, severe cystocele, type 2 DM, paroxysmal afib, who presented to ED with worsening confusion. - Patient Problems (1) Confusion Comment: - Etiology unclear at this time. - She did have leukocytosis and elevated CRP on admission, but no clear source of infection so far. -suspect bronchitis, cpont Ceftriaxone/Azithro -UA unremarkable, d/c [facility] and monitor (2) Type 2 diabetes mellitus Comment: - Controlled. - Continue Lispro SS. (3) Hypertension Comment: - Controlled. - Continue Metoprolol. (4) Hypothyroidism Comment: TSH at 1, no dose adjustment of Synthroid needed (5) DVT prophylaxis Comment: - SQ heparin. Status and Disposition: inpatient.will be evaluated by [facility], but likely needs STR
[2017-05-06 05:49] LABS: Hematocrit 34 % (35-47); Hemoglobin 11.4 g/dl (12.0-16.0); Mean Corpuscular HGB Conc 33 g/dl (31-36); Mean Corpuscular Hemoglobin 31 pg (27-31); Mean Corpuscular Volume 94 fL (80-97); Mean Platelet Volume 10 um3 (7.4-10.4); Red Blood Count 3.65 10^6/ul (4.0-5.4); Red Cell Distribution Width 13 % (10.5-15); White Blood Count 7.5 10^3/ul (3.5-10.8)
[2017-05-06 06:40] LABS: BUN/Creatinine Ratio 25.6 (8-20); C Reactive Protein 50.49 mg/L (< 5.00); Calcium 8.6 mg/dL (8.6-10.3); EGFR African American 90.5 (>60); EGFR Non-African American 70.4 (>60); Potassium 3.8 mmol/L (3.5-5.0)
[2017-05-06] MEDS: Heparin VIAL(*) 5000 UNITS/ML VIAL (FIVE THOUSAND) SUBCUT SCH ×3 (06:45→22:04)
[2017-05-06] MEDS: Levothyroxine TAB* 75 MCG TAB PO SCH (06:45)
[2017-05-06] MEDS: Insulin LISPRO* 1 UNITS UNIT SUBCUT SCH ×3 (10:45→17:28)
[2017-05-06] MEDS: Lisinopril TAB* 10 MG PO SCH (10:52)
[2017-05-06] MEDS: Aspirin EC Low Dose* 81 MG TAB.EC PO SCH (10:53)
[2017-05-06] MEDS: Donepezil TAB* 5 MG PO SCH (10:53)
[2017-05-06] MEDS: Metoprolol Tartrate TAB* 25 MG PO SCH ×2 (10:53→22:04)
[2017-05-06] MEDS: Hydrochlorothiazide TAB* 25 MG PO SCH (10:59)
[2017-05-06] MEDS: cefTRIAXone VIAL(*) 1,000 MG in NS 0.9% 50 ML* 50 ML IVPB SCH (14:00)
--- NOTE | 2017-05-06 14:29 | PN ---
Subjective Date of Service: 05/06/17 Interval History: Pt is very forgetful and disoriented, appears close to baseline. no complaints Family History: Unchanged from Admission Social History: Unchanged from Admission Past Medical History: Unchanged from Admission Objective Active Medications: Acetaminophen (Tylenol Tab*) 650 mg PO Q6H PRN PRN Reason: PAIN Last Admin: 05/05/17 00:45 Dose: 650 mg Aspirin (Aspirin Ec Low Dose*) 81 mg PO DAILY [facility] Last Admin: 05/06/17 10:53 Dose: 81 mg Dextrose (D50w Syringe 50 Ml*) 12.5 gm IV PUSH .FOR FS < 60 - SS PRN PRN Reason: FS < 60 Donepezil HCl (Aricept Tab*) 5 mg PO DAILY [facility] Last Admin: 05/06/17 10:53 Dose: 5 mg Heparin Sodium (Porcine) (Heparin Vial(*)) 5,000 units SUBCUT Q8HR [facility] Last Admin: 05/06/17 14:07 Dose: 5,000 units Hydrochlorothiazide (Hydrodiuril Tab*) 12.5 mg PO DAILY [facility] Last Admin: 05/06/17 10:59 Dose: 12.5 mg Ceftriaxone Sodium 1,000 mg/ (Sodium Chloride) 50 mls @ 200 mls/hr IVPB Q24H [facility] Last Admin: 05/06/17 14:00 Dose: 200 mls/hr Azithromycin 500 mg/ Sodium (Chloride) 250 mls @ 250 mls/hr IVPB Q24H [facility] Last Admin: 05/05/17 14:35 Dose: 250 mls/hr Insulin Human Lispro (Humalog*) 0 units SUBCUT AC [facility] PRN Reason: Protocol Last Admin: 05/06/17 12:31 Dose: Not Given Levothyroxine Sodium (Synthroid Tab*) 75 mcg PO DAILY@0600 [facility] Last Admin: 05/06/17 06:45 Dose: 75 mcg Lisinopril (Prinivil Tab*) 40 mg PO DAILY [facility] Last Admin: 05/06/17 10:52 Dose: 40 mg Metoprolol Tartrate (Lopressor Tab*) 12.5 mg PO Q12HR [facility] Last Admin: 05/06/17 10:53 Dose: 12.5 mg Vital Signs 05/05/17 05/05/17 05/05/17 15:26 19:54 20:00 Temperature 97.7 F 98.2 F Pulse Rate 59 68 Respiratory 20 20 20 Rate Blood Pressure 153/66 169/68 (mmHg) O2 Sat by Pulse 97 97 Oximetry 05/05/17 05/06/17 05/06/17 23:48 03:46 07:50 Temperature 98.2 F 98.0 F 98.2 F Pulse Rate 66 65 65 Respiratory 16 16 18 Rate Blood Pressure 168/60 175/62 164/59 (mmHg) O2 Sat by Pulse 99 97 97 Oximetry 05/06/17 05/06/17 07:51 11:59 Temperature 98.3 F Pulse Rate 59 Respiratory 20 18 Rate Blood Pressure 146/63 (mmHg) O2 Sat by Pulse 95 Oximetry Oxygen Devices in Use Now: None Appearance: 86 yo f in nAD, oriented to self, pleasant and conversational Eyes: No Scleral Icterus, PERRLA Ears/Nose/Mouth/Throat: NL Teeth, Lips, Gums, Mucous Membranes Moist Neck: NL Appearance and Movements; NL JVP, Trachea Midline Respiratory: Symmetrical Chest Expansion and Respiratory Effort, Clear to Auscultation Cardiovascular: NL Sounds; No Murmurs; No JVD, RRR Abdominal: NL Sounds; No Tenderness; No Distention Lymphatic: No Cervical Adenopathy Extremities: No Clubbing, Cyanosis, - - trace b/l ankle edema Skin: - - R cheek, b/l hands ecchymoses Neurological: NL Muscle Strength and Tone Result Diagrams: 05/06/17 05:13 05/06/17 05:13 Additional Lab and Data: Lab Results 05/03/17 05/03/17 05/03/17 Range/Units 17:45 17:45 17:45 WBC 14.5 H (3.5-10.8) 10^3/ul RBC 3.84 L (4.0-5.4) 10^6/ul Hgb 11.8 L (12.0-16.0) g/dl Hct 36 (35-47) % MCV 94 (80-97) fL MCH 31 (27-31) pg MCHC 33 (31-36) g/dl RDW 14 (10.5-15) % Plt Count 194 (150-450) 10^3/ul MPV 10 (7.4-10.4) um3 Neut % (Auto) 77.4 (38-83) % Lymph % (Auto) 10.8 L (25-47) % [place] % (Auto) 9.7 H (1-9) % Eos % (Auto) 1.2 (0-6) % Baso % (Auto) 0.9 (0-2) % Absolute Neuts (auto) 11.2 H (1.5-7.7) 10^3/ul Absolute Lymphs (auto) 1.6 (1.0-4.8) 10^3/ul Absolute Monos (auto) 1.4 H (0-0.8) 10^3/ul Absolute Eos (auto) 0.2 (0-0.6) 10^3/ul Absolute Basos (auto) 0.1 (0-0.2) 10^3/ul Absolute Nucleated RBC 0.01 10^3/ul Nucleated RBC % 0.1 INR (Anticoag Therapy) 0.97 (0.89-1.11) APTT 25.3 L (26.0-36.3) seconds Sodium 130 L (133-145) mmol/L Potassium 4.0 (3.5-5.0) mmol/L Chloride 96 L (101-111) mmol/L Carbon Dioxide 27 (22-32) mmol/L Anion Gap 7 (2-11) mmol/L BUN 24 (6-24) mg/dL Creatinine 1.28 H (0.51-0.95) mg/dL Est GFR ( Amer) 51.1 (>60) Est GFR (Non-Af Amer) 39.7 (>60) BUN/Creatinine Ratio 18.8 (8-20) Glucose 113 H (70-100) mg/dL Lactic Acid (0.5-2.0) mmol/L Calcium 9.1 (8.6-10.3) mg/dL Magnesium 1.8 L (1.9-2.7) mg/dL Total Bilirubin 0.60 (0.2-1.0) mg/dL AST 39 (13-39) U/L ALT 50 (7-52) U/L Alkaline Phosphatase 67 (34-104) U/L Ammonia (16-53) mol/L Total Creatine Kinase 52 (10-223) U/L CK-MB (CK-2) 1.6 (0.6-6.3) ng/mL Troponin I 0.03 (<0.04) ng/mL C-Reactive Protein 172.45 H (< 5.00) mg/L B-Natriuretic Peptide ( - 100) pg/mL Total Protein 6.4 (6.4-8.9) g/dL Albumin 3.4 (3.2-5.2) g/dL Globulin 3.0 (2-4) g/dL Albumin/Globulin Ratio 1.1 (1-3) Lipase 17 (11.0-82.0) U/L TSH 1.05 (0.34-5.60) mcIU/mL 05/03/17 05/03/17 Range/Units 17:45 17:50 WBC (3.5-10.8) 10^3/ul RBC (4.0-5.4) 10^6/ul Hgb (12.0-16.0) g/dl Hct (35-47) % MCV (80-97) fL MCH (27-31) pg MCHC (31-36) g/dl RDW (10.5-15) % Plt Count (150-450) 10^3/ul MPV (7.4-10.4) um3 Neut % (Auto) (38-83) % Lymph % (Auto) (25-47) % [place] % (Auto) (1-9) % Eos % (Auto) (0-6) % Baso % (Auto) (0-2) % Absolute Neuts (auto) (1.5-7.7) 10^3/ul Absolute Lymphs (auto) (1.0-4.8) 10^3/ul Absolute Monos (auto) (0-0.8) 10^3/ul Absolute Eos (auto) (0-0.6) 10^3/ul Absolute Basos (auto) (0-0.2) 10^3/ul Absolute Nucleated RBC 10^3/ul Nucleated RBC % INR (Anticoag Therapy) (0.89-1.11) APTT (26.0-36.3) seconds Sodium (133-145) mmol/L Potassium (3.5-5.0) mmol/L Chloride (101-111) mmol/L Carbon Dioxide (22-32) mmol/L Anion Gap (2-11) mmol/L BUN (6-24) mg/dL Creatinine (0.51-0.95) mg/dL Est GFR ( Amer) (>60) Est GFR (Non-Af Amer) (>60) BUN/Creatinine Ratio (8-20) Glucose (70-100) mg/dL Lactic Acid 0.9 (0.5-2.0) mmol/L Calcium (8.6-10.3) mg/dL Magnesium (1.9-2.7) mg/dL Total Bilirubin (0.2-1.0) mg/dL AST (13-39) U/L ALT (7-52) U/L Alkaline Phosphatase (34-104) U/L Ammonia 38 (16-53) mol/L Total Creatine Kinase (10-223) U/L CK-MB (CK-2) (0.6-6.3) ng/mL Troponin I (<0.04) ng/mL C-Reactive Protein (< 5.00) mg/L B-Natriuretic Peptide 70 ( - 100) pg/mL Total Protein (6.4-8.9) g/dL Albumin (3.2-5.2) g/dL Globulin (2-4) g/dL Albumin/Globulin Ratio (1-3) Lipase (11.0-82.0) U/L TSH (0.34-5.60) mcIU/mL Assess/Plan/Problems-Billing Assessment: Mrs. Tatum is an 86yo F with PMH of dementia, HTN, HLD, hypothyroidism, severe cystocele, type 2 DM, paroxysmal afib, who presented to ED with worsening confusion. - Patient Problems (1) Confusion Comment: - Etiology unclear at this time. - She did have leukocytosis and elevated CRP on admission, but no clear source of infection so far. -suspect bronchitis, cpont Ceftriaxone/Azithro -UA unremarkable, [facility] d/c'd on 05/05/17 (2) Type 2 diabetes mellitus Comment: - Controlled. - Continue Lispro SS. (3) Hypertension Comment: - uncontrolled. - Continue Metoprolol, restarting home lisinopril and HCTZ (4) Hypothyroidism Comment: TSH at 1, no dose adjustment of Synthroid needed (5) DVT prophylaxis Comment: - SQ heparin. Status and Disposition: inpatient.will be evaluated by Luz, but likely needs STR
[2017-05-06] MEDS: Azithromycin IV(*) 500 MG in NS 0.9% 250 ML* 250 ML IVPB SCH (15:08)
[2017-05-06] MEDS ORDERED: Azithromycin TAB* 250 MG PO ONE (16:07)
[2017-05-07] MEDS: Heparin VIAL(*) 5000 UNITS/ML VIAL (FIVE THOUSAND) SUBCUT SCH ×3 (05:33→20:47)
[2017-05-07] MEDS: Levothyroxine TAB* 75 MCG TAB PO SCH (05:33)
[2017-05-07] MEDS: Insulin LISPRO* 1 UNITS UNIT SUBCUT SCH ×3 (07:39→17:18)
[2017-05-07] MEDS: Aspirin EC Low Dose* 81 MG TAB.EC PO SCH (10:11)
[2017-05-07] MEDS: Azithromycin TAB* 250 MG PO SCH (10:11)
[2017-05-07] MEDS: Donepezil TAB* 5 MG PO SCH (10:11)
[2017-05-07] MEDS: Lisinopril TAB* 10 MG PO SCH (10:12)
[2017-05-07] MEDS: Metoprolol Tartrate TAB* 25 MG PO SCH ×2 (10:13→20:46)
[2017-05-07] MEDS: Hydrochlorothiazide TAB* 25 MG PO SCH (10:13)
[2017-05-07] MEDS ORDERED: Hydrochlorothiazide TAB* 25 MG PO SCH (12:12)
--- NOTE | 2017-05-07 14:13 | PN ---
Subjective Date of Service: 05/07/17 Interval History: Pt has no complaints. At baseline disoriented to location /time, but conversational Family History: Unchanged from Admission Social History: Unchanged from Admission Past Medical History: Unchanged from Admission Objective Active Medications: Acetaminophen (Tylenol Tab*) 650 mg PO Q6H PRN PRN Reason: PAIN Last Admin: 05/05/17 00:45 Dose: 650 mg Aspirin (Aspirin Ec Low Dose*) 81 mg PO DAILY [facility] Last Admin: 05/07/17 10:11 Dose: 81 mg Azithromycin (Zithromax Tab*) 250 mg PO DAILY [facility] Last Admin: 05/07/17 10:11 Dose: 250 mg Dextrose (D50w Syringe 50 Ml*) 12.5 gm IV PUSH .FOR FS < 60 - SS PRN PRN Reason: FS < 60 Donepezil HCl (Aricept Tab*) 5 mg PO DAILY [facility] Last Admin: 05/07/17 10:11 Dose: 5 mg Heparin Sodium (Porcine) (Heparin Vial(*)) 5,000 units SUBCUT Q8HR [facility] Last Admin: 05/07/17 05:33 Dose: 5,000 units Hydrochlorothiazide (Hydrodiuril Tab*) 25 mg PO DAILY [facility] Insulin Human Lispro (Humalog*) 0 units SUBCUT AC [facility] PRN Reason: Protocol Last Admin: 05/07/17 12:52 Dose: 2 units Levothyroxine Sodium (Synthroid Tab*) 75 mcg PO DAILY@0600 [facility] Last Admin: 05/07/17 05:33 Dose: 75 mcg Lisinopril (Prinivil Tab*) 40 mg PO DAILY [facility] Last Admin: 05/07/17 10:12 Dose: 40 mg Metoprolol Tartrate (Lopressor Tab*) 12.5 mg PO Q12HR [facility] Last Admin: 05/07/17 10:13 Dose: 12.5 mg Vital Signs 05/06/17 05/06/17 05/06/17 16:36 19:25 20:00 Temperature 98.8 F 98.8 F Pulse Rate 70 76 Respiratory 18 18 Rate Blood Pressure 143/64 (mmHg) O2 Sat by Pulse 94 96 Oximetry 05/06/17 05/06/17 05/07/17 22:10 23:57 03:38 Temperature 97.7 F 97.7 F Pulse Rate 66 69 66 Respiratory 16 16 Rate Blood Pressure 163/78 153/77 172/69 (mmHg) O2 Sat by Pulse 97 97 Oximetry 05/07/17 05/07/17 07:40 07:53 Temperature 97.8 F Pulse Rate 62 Respiratory 16 20 Rate Blood Pressure 156/60 (mmHg) O2 Sat by Pulse 95 Oximetry Oxygen Devices in Use Now: None Appearance: 86 yo f in NAD, oriented to self, very poor short term memory Eyes: No Scleral Icterus, PERRLA Ears/Nose/Mouth/Throat: NL Teeth, Lips, Gums, Mucous Membranes Moist Neck: NL Appearance and Movements; NL JVP, Trachea Midline Respiratory: Symmetrical Chest Expansion and Respiratory Effort, Clear to Auscultation Cardiovascular: NL Sounds; No Murmurs; No JVD, RRR Abdominal: NL Sounds; No Tenderness; No Distention Lymphatic: No Cervical Adenopathy Extremities: No Clubbing, Cyanosis, - - trace ankle edema b/l Skin: No Nodules or Sclerosis, - - ecchymosis on r cheek and b/l hands Neurological: NL Muscle Strength and Tone Result Diagrams: 05/06/17 05:13 05/06/17 05:13 Additional Lab and Data: Lab Results 05/03/17 05/03/17 05/03/17 Range/Units 17:45 17:45 17:45 WBC 14.5 H (3.5-10.8) 10^3/ul RBC 3.84 L (4.0-5.4) 10^6/ul Hgb 11.8 L (12.0-16.0) g/dl Hct 36 (35-47) % MCV 94 (80-97) fL MCH 31 (27-31) pg MCHC 33 (31-36) g/dl RDW 14 (10.5-15) % Plt Count 194 (150-450) 10^3/ul MPV 10 (7.4-10.4) um3 Neut % (Auto) 77.4 (38-83) % Lymph % (Auto) 10.8 L (25-47) % [place] % (Auto) 9.7 H (1-9) % Eos % (Auto) 1.2 (0-6) % Baso % (Auto) 0.9 (0-2) % Absolute Neuts (auto) 11.2 H (1.5-7.7) 10^3/ul Absolute Lymphs (auto) 1.6 (1.0-4.8) 10^3/ul Absolute Monos (auto) 1.4 H (0-0.8) 10^3/ul Absolute Eos (auto) 0.2 (0-0.6) 10^3/ul Absolute Basos (auto) 0.1 (0-0.2) 10^3/ul Absolute Nucleated RBC 0.01 10^3/ul Nucleated RBC % 0.1 INR (Anticoag Therapy) 0.97 (0.89-1.11) APTT 25.3 L (26.0-36.3) seconds Sodium 130 L (133-145) mmol/L Potassium 4.0 (3.5-5.0) mmol/L Chloride 96 L (101-111) mmol/L Carbon Dioxide 27 (22-32) mmol/L Anion Gap 7 (2-11) mmol/L BUN 24 (6-24) mg/dL Creatinine 1.28 H (0.51-0.95) mg/dL Est GFR ( Amer) 51.1 (>60) Est GFR (Non-Af Amer) 39.7 (>60) BUN/Creatinine Ratio 18.8 (8-20) Glucose 113 H (70-100) mg/dL Lactic Acid (0.5-2.0) mmol/L Calcium 9.1 (8.6-10.3) mg/dL Magnesium 1.8 L (1.9-2.7) mg/dL Total Bilirubin 0.60 (0.2-1.0) mg/dL AST 39 (13-39) U/L ALT 50 (7-52) U/L Alkaline Phosphatase 67 (34-104) U/L Ammonia (16-53) mol/L Total Creatine Kinase 52 (10-223) U/L CK-MB (CK-2) 1.6 (0.6-6.3) ng/mL Troponin I 0.03 (<0.04) ng/mL C-Reactive Protein 172.45 H (< 5.00) mg/L B-Natriuretic Peptide ( - 100) pg/mL Total Protein 6.4 (6.4-8.9) g/dL Albumin 3.4 (3.2-5.2) g/dL Globulin 3.0 (2-4) g/dL Albumin/Globulin Ratio 1.1 (1-3) Lipase 17 (11.0-82.0) U/L TSH 1.05 (0.34-5.60) mcIU/mL 05/03/17 05/03/17 Range/Units 17:45 17:50 WBC (3.5-10.8) 10^3/ul RBC (4.0-5.4) 10^6/ul Hgb (12.0-16.0) g/dl Hct (35-47) % MCV (80-97) fL MCH (27-31) pg MCHC (31-36) g/dl RDW (10.5-15) % Plt Count (150-450) 10^3/ul MPV (7.4-10.4) um3 Neut % (Auto) (38-83) % Lymph % (Auto) (25-47) % [place] % (Auto) (1-9) % Eos % (Auto) (0-6) % Baso % (Auto) (0-2) % Absolute Neuts (auto) (1.5-7.7) 10^3/ul Absolute Lymphs (auto) (1.0-4.8) 10^3/ul Absolute Monos (auto) (0-0.8) 10^3/ul Absolute Eos (auto) (0-0.6) 10^3/ul Absolute Basos (auto) (0-0.2) 10^3/ul Absolute Nucleated RBC 10^3/ul Nucleated RBC % INR (Anticoag Therapy) (0.89-1.11) APTT (26.0-36.3) seconds Sodium (133-145) mmol/L Potassium (3.5-5.0) mmol/L Chloride (101-111) mmol/L Carbon Dioxide (22-32) mmol/L Anion Gap (2-11) mmol/L BUN (6-24) mg/dL Creatinine (0.51-0.95) mg/dL Est GFR ( Amer) (>60) Est GFR (Non-Af Amer) (>60) BUN/Creatinine Ratio (8-20) Glucose (70-100) mg/dL Lactic Acid 0.9 (0.5-2.0) mmol/L Calcium (8.6-10.3) mg/dL Magnesium (1.9-2.7) mg/dL Total Bilirubin (0.2-1.0) mg/dL AST (13-39) U/L ALT (7-52) U/L Alkaline Phosphatase (34-104) U/L Ammonia 38 (16-53) mol/L Total Creatine Kinase (10-223) U/L CK-MB (CK-2) (0.6-6.3) ng/mL Troponin I (<0.04) ng/mL C-Reactive Protein (< 5.00) mg/L B-Natriuretic Peptide 70 ( - 100) pg/mL Total Protein (6.4-8.9) g/dL Albumin (3.2-5.2) g/dL Globulin (2-4) g/dL Albumin/Globulin Ratio (1-3) Lipase (11.0-82.0) U/L TSH (0.34-5.60) mcIU/mL Assess/Plan/Problems-Billing Assessment: Mrs. Tatum is an 86yo F with PMH of dementia, HTN, HLD, hypothyroidism, severe cystocele, type 2 DM, paroxysmal afib, who presented to ED with worsening confusion. - Patient Problems (1) Confusion Comment: -suspect bronchitis, Azithro. Ceftriaxone d/c'd on 05/06/17 - She did have leukocytosis and elevated CRP on admission, but no clear source of infection apart from above -UA unremarkable, Walters d/c'd on 05/05/17 (chronic cystocele noted) (2) Type 2 diabetes mellitus Comment: - Controlled. - Continue Lispro SS. (3) Hypertension Comment: - uncontrolled. - Continue Metoprolol, lisinopril and increasing the dose of HCTZ (4) Hypothyroidism Comment: TSH at 1, no dose adjustment of Synthroid needed (5) DVT prophylaxis Comment: - SQ heparin. Status and Disposition: inpatient.will be evaluated by Luz, but likely needs STR spoke with pt's daughter Rohini present in room today re: family's concerns for not sufficient PT during inpatient stay. Explained to family that we have limited PT resources during the weekend.
[2017-05-08] MEDS: Levothyroxine TAB* 75 MCG TAB PO SCH (06:04)
[2017-05-08] MEDS: Heparin VIAL(*) 5000 UNITS/ML VIAL (FIVE THOUSAND) SUBCUT SCH (06:04)
[2017-05-08] MEDS: Insulin LISPRO* 1 UNITS UNIT SUBCUT SCH ×2 (08:17→12:14)
[2017-05-08 08:19] VITALS: BP 131/56
[2017-05-08] MEDS: Lisinopril TAB* 10 MG PO SCH (09:30)
[2017-05-08] MEDS: Aspirin EC Low Dose* 81 MG TAB.EC PO SCH (09:32)
[2017-05-08] MEDS: Donepezil TAB* 5 MG PO SCH (09:32)
[2017-05-08] MEDS: Azithromycin TAB* 250 MG PO SCH (09:32)
[2017-05-08] MEDS: Metoprolol Tartrate TAB* 25 MG PO SCH (09:32)
--- NOTE | 2017-05-08 23:16 | DS ---
CC: Dr. Jesus * DISCHARGE SUMMARY: DATE OF ADMISSION: 05/03/17 DATE OF DISCHARGE: 05/08/17 PRIMARY CARE PROVIDER: Dr. Jesus. DISCHARGE DIAGNOSIS: Lethargy and worsening confusion most likely due to acute bronchitis. SECONDARY DIAGNOSES: 1. Ckcrtrzu-ml-gppwnl dementia. 2. Hypertension. 3. Hyperlipidemia. 4. Hypothyroidism. 5. Severe cystocele. 6. Diabetes type 2. 7. Paroxysmal atrial fibrillation. MEDICATIONS AT DISCHARGE: Unchanged from prior and include: 1. Tylenol on a p.r.n. basis. 2. Levothyroxine 75 mcg daily. 3. Vitamin 1000 units daily. 4. Fosamax 70 mg weekly. 5. Aspirin 81 mg daily. 6. Aricept 5 mg daily. 7. Hydrochlorothiazide 12.5 mg daily. 8. Lisinopril 40 mg daily. 9. Metformin 500 mg daily. 10. Metoprolol 12.5 mg every 12 hours. 11. Zantac 150 mg b.i.d. 12. Zocor 10 mg at bedtime. LABORATORY DATA: Studies performed during the hospital stay included: On 05/05, sodium of 133, potassium 3.8, chloride 103, carbon dioxide 24, BUN 24, creatinine 0.94. C-reactive protein was 92.3. On 05/06/17, white blood cell count 7.5, hemoglobin 11.4, hematocrit of 34, and platelets of 204. Urinalysis showed +2 blood, +1 red blood cells, no bacteria. No nitrites and no esterase. Maxillofacial CT obtained on 05/03/17. Impression: "No acute calvarial fracture or acute intracranial hemorrhage. No acute facial bone fracture. No acute fracture or dislocation of the cervical spine." Chest x-ray obtained on 05/03/17. Impression: "Reduced lung volumes relative to the previous chest x-ray, which may be the consequence of poor expiratory effort. Potentially, there is bibasilar consolidation and pleural effusion. CT of the brain obtained on admission was unremarkable. HOSPITALIZATION COURSE: Norma Tatum is an 86-year-old female with a history of diabetes and hypertension with [id number] dementia [facility]. Sometimes, she forgets her walker and she falls. She apparently had a fall 2 weeks prior to current presentation to the hospital. She came to the hospital on 05/03/17 with complaints of worsening lethargy. Her C-reactive protein was elevated, but there was no clear source of infection identified apart from bronchitis. The patient had been coughing and had coarse breath sounds on evaluation. She was treated with broad spectrum antibiotics including ceftriaxone and azithromycin and she did very well. By the time of discharge, her cough resolved altogether. She completed a 5-day course of azithromycin by the time of discharge. Please note that the patient has severe cystocele and that is her baseline. Her urinalysis was grossly unremarkable as mentioned above. She underwent physical therapy, occupational therapy evaluation, and deemed to be a good candidate to return to [facility]. She is to ambulate with a roller walker. Diet at discharge is diabetic. PHYSICAL EXAM: At the time of discharge, blood pressure of 131/56, heart rate of 84 and regular, respiratory rate 16, oxygen saturation 95% on room air, temperature 98.4. General: The patient is a very pleasant 86-year-old female, who is in no acute distress. She is oriented to self only. Very poor short term memory. HEENT: Head with ecchymotic area on the right cheek, appears to be slowly resolving. Eyes: Extraocular muscles are intact. Pupils equal and reactive to light and accommodation. Oropharynx clear. Mucosa moist. Neck: Supple. No JVD. No bruits bilaterally. Cardiovascular: Regular rate and rhythm. No murmur. Respiratory: Clear to auscultation bilaterally. Abdomen: Soft, nontender. Bowel sounds present in all 4 quadrants. Extremities: There is trace bilateral ankle edema. Pulses are +2 bilaterally. There is no clubbing or cyanosis. Evaluation of the skin: The patient has ecchymotic areas in bilateral hands, which occurred after a fall in the past at [facility]. Psychiatric evaluation: A very poor short term memory, but pleasant and conversational, oriented to self only. Please note that this is a short summary of the outpatient's hospitalization. Please refer to full medical records for details. TIME SPENT: Approximately 35 minutes were spent on the patient's discharge. [id number]/CPS #: [id number] MTDD
== END 2017-05-08 14:19 | DRG 202 ==
LOC: ED 16:35 → MEDTELE 20:22 → OBSVTOIN 05-04 17:59
PROVIDERS: ADMIT Hospitalist; ATTEND Internal Medicine
DX: J20.9 Acute bronchitis, unspecified (principal); E87.1 Hypo-osmolality and hyponatremia; F03.90 Unspecified dementia, unspecified severity, without behavioral disturbance, psychotic disturbance, mood disturbance, and anxiety; I48.0 Paroxysmal atrial fibrillation; J98.11 Atelectasis; I10 Essential (primary) hypertension; E78.5 Hyperlipidemia, unspecified; E03.9 Hypothyroidism, unspecified; E11.9 Type 2 diabetes mellitus without complications; N81.10 Cystocele, unspecified; Z79.82 Long term (current) use of aspirin; Z79.1 Long term (current) use of non-steroidal anti-inflammatories (NSAID); Z79.899 Other long term (current) drug therapy; Z82.49 Family history of ischemic heart disease and other diseases of the circulatory system; Z87.891 Personal history of nicotine dependence; R41.0 Disorientation, unspecified; Z79.84 Long term (current) use of oral hypoglycemic drugs
CPT/HCPCS: 36415; 70450; 70486; 71010; 72125; 80048; 80053; 81003; 81015; 82140; 82550; 82553; 83605; 83690; 83735; 83880; 84443; 84484; 85025; 85027; 85610; 85730; 86140; A9270-GY; G8978-GP-CI; G8979-GP-CH; G8980-GP-CI; J0456; J0696; J1644; J1956

== ENCOUNTER 2019-06-07 13:29 | Inpatient (IN) | payer MEDICARE, BC ==
--- NOTE | 2019-06-07 14:16 | ED ---
Adult Trauma - HPI Summary HPI Summary: Pt is an 88 y/o F presenting to the ED with a chief complaint of back pain initially onset on 06/03/19 after a fall. LEVEL 5 CAVEAT: Pts full hx is unreliable d/t past dx of dementia. She states she fell this morning, and she currently c/o pain in her R arm and back. She denies SOB, CP, abd pain, vomiting , diarrhea, or dysuria. She is unsure of whether or not she hit her head, her PMHx, where she lives, or who the president is. She knows her birthday. Patient does have a most that is a DNR. The subs computers of the most are missing both in her skin records as well as the PCP. Attempted to contact patient's daughter her healthcare proxy but was unable to speak to her period to leave a message. Will attempt again later. Patient's MAR reviewed. Patient has been getting Tylenol for pain but no other analgesia - History of Current Complaint Chief Complaint: EDBackInjuryPain Stated Complaint: FALL BACK PAIN Time Seen by Provider: 06/07/19 13:35 Hx Obtained From: Patient Hx From Patient Unobtainable Due To: Dementia Mechanism of Injury: Fall Loss of Consciousness: unsure Onset/Duration: Still Present Current Severity: Moderate Pain Intensity: 6 Pain Scale Used: 0-10 Numeric Location: Back - R side, Extremities - R arm Aggravating Factor(s): Movement Associated Signs & Symptoms: Negative: SOB, Chest Pain, Abdominal Pain, Nausea/ Vomiting - Additional Pertinent History Primary Care Physician: [id number] - Allergy/Home Medications Allergies/Adverse Reactions: Allergies Allergy/AdvReac Type Severity Reaction Status Date / Time No Known Allergies Allergy Verified 06/07/19 13:36 Home Medications: Home Medications Acetaminophen TAB* [Tylenol TAB*] 650 mg PO Q4H PRN 06/07/19 [History Confirmed 06/07/19] Cholecalciferol CAP/TAB(NF) [Vitamin D3 CAP/TAB (NF)] 5,000 unit PO DAILY [History Confirmed 06/07/19] Donepezil TAB* [Aricept 5 MG TAB*] 5 mg PO BEDTIME 06/07/19 [History Confirmed 06/07/19] Levothyroxine TAB* [Synthroid TAB*] 50 mcg PO MOTUWETHFR 06/07/19 [History Confirmed 06/07/19] Melatonin [Meladox] 3 mg PO BEDTIME 06/07/19 [History Confirmed 06/07/19] Multivitamins/Minerals TAB* [Theragran/minerals TAB*] 1 tab PO DAILY 06/07/19 [ History Confirmed 06/07/19] glipiZIDE TAB.XL* [Glucotrol XL*] 2.5 mg PO DAILY 06/07/19 [History Confirmed ] PMH/Surg Hx/FS Hx/Imm Hx Previously Healthy: No Endocrine/Hematology History: Denies: Hx Anticoagulant Therapy, Hx Diabetes Cardiovascular History: Reports: Hx Hypertension Denies: Hx Pacemaker/ICD History: Denies: Hx Renal Disease, Other Problems/Disorders - bladder prolapse per ED report Sensory History: Reports: Hx Contacts or Glasses Denies: Hx Hearing Aid Opthamlomology History: Reports: Hx Contacts or Glasses Neurological History: Reports: Hx Dementia Psychiatric History: Denies: Hx Panic Disorder - Surgical History Surgery Procedure, Year, and Place: hysterectomy, year unknown. CHOLYCESTECTOMY. CATARACT Infectious Disease History: No Infectious Disease History: Denies: Traveled Outside the [place] in Last 30 Days - Family History Known Family History: Positive: Unknown - LEVEL 5 CAVEAT: Unobtainable due to dementia, Non-Contributory - Social History Occupation: Retired Lives: Assisted Living Alcohol Use: Rare Alcohol Amount: "very very little, a little wine" Hx Substance Use: No Substance Use Type: Reports: None Hx Tobacco Use: Yes Smoking Status (MU): Former Smoker Review of Systems - ROS Summary Review of Systems Summary: LEVEL 5 CAVEAT: Pts full hx is unreliable d/t past dx of dementia. Negative: Chest Pain Negative: Shortness Of Breath Negative: Abdominal Pain, Vomiting, Diarrhea Negative: dysuria Positive: Myalgia - R arm, back All Other Systems Reviewed And Are Negative: No Physical Exam - Summary Physical Exam Summary: Vital Signs Reviewed: Yes A+O to name, pleaseant confused, poor historian Eyes: Conjunctiva Clear, LILIA. EOM intact and full ENT: Hearing grossly normal TM x 2 clear no hemotymp, no septal hematoma, mmoist, uvula midline, no exudate, no erythema Neck: Positive: Supple, full AROM without pain Respiratory: Positive: No respiratory distress, No accessory muscle use, decreased aeration at bases no w/r Pt with pain with palpation along right ribs , no crepitus Cardiovascular: RRR nl s1, s2 no m/r CBT <2 sec + edema LE abd soft + BS nt/nd no guarding, no distension Musculoskeletal Exam: Pt with pain right anterionr shoulder along clavicle, + SLE b/l - non sustaine + PROM knee, hip without pain Neurological: Positive: Alert, + sensation throughout Psychological: Positive: Normal Response To examiner Skin: Positive: no rash, no ecchymosis Triage Information Reviewed: Yes Vital Signs On Initial Exam: Initial Vitals Temp Pulse Resp BP Pulse Ox 98.6 F 72 18 192/79 93 06/07/19 13:30 06/07/19 13:30 06/07/19 13:30 06/07/19 13:30 06/07/19 13:30 Vital Signs Reviewed: Yes Completion Of Physical Exam Limited Due To: Dementia, Level 5 Diagnostics - Vital Signs Vital Signs Temp Pulse Resp BP Pulse Ox 06/07/19 13:30 98.6 F 72 18 192/79 93 - Laboratory Result Diagrams: 06/08/19 07:33 06/08/19 13:48 Lab Statement: Any lab studies that have been ordered have been reviewed, and results considered in the medical decision making process. - Radiology Ribs w/ CXR Radiology Interpretation Completed By: Radiologist Summary of Radiographic Findings: Multiple right rib fractures study from the third ribs and extending to the fourth fifth, sixth and seventh ribs. ED physician has reviewed this report. Shoulder XR Radiology Interpretation Completed By: Radiologist Summary of Radiographic Findings: 1. OSTEOPENIA. 2. OSTEOARTHRITIS. 3. MULTIPLE RIGHT-SIDED RIB FRACTURES. 4. NO ACUTE OSSEOUS INJURY TO THE SHOULDER. THE DEGREE OF OSTEOPENIA MAY MAKE A NONDISPLACED FRACTURE RADIOGRAPHICALLY OCCULT. IF SYMPTOMS PERSIST, RECOMMEND REPEAT IMAGING. ED physician has reviewed this report. L-spine XR Radiology Interpretation Completed By: Radiologist Summary of Radiographic Findings: Age indeterminate potentially acute anterior and middle column fracture at L2. ED physician has reviewed this report. T-spine XR Radiology Interpretation Completed By: Radiologist Summary of Radiographic Findings: Limited thoracic spine with multilevel degenerative disc disease and osteopenia. ED physician has reviewed this report. - CT L-spine CT CT Interpretation Completed By: Radiologist Summary of CT Findings: 1. THERE IS A MODERATE COMPRESSION FRACTURE OF THE L2 VERTEBRAL BODY MOST CONSISTENT WITH A SUBACUTE TO CHRONIC DURATION FRACTURE. 2. MODERATE TO SEVERE LUMBAR SPONDYLOSIS DESCRIBED. 3. SMALL RIGHT PLEURAL EFFUSION. ED physician has reviewed this report. Re-Evaluation - Re-Evaluation 1st re-eval Re-Evaluation Time: 17:08 Change: Unchanged Comment: Patient's lab work is unremarkable. Patient's plain x-rays reviewed. Patient with multiple fractures will have to be admitted. Patient also has an L2 fracture was unclear whether it's. Old. There is no neurosurgery available at this facility taken. Discussed with radiologist. We'll do a CT scan. If fracture appears old on CT we will admit here. Fracture. We'll likely have to transfer for trauma evaluation. Patient's daughter has not callbacks fight times. We'll continue to try. We'll give patient a little bit of morphine so she can comfortably lie for the CAT scan. Patient is on 2 L of oxygen as her sats were in the low 90s. Second Eval Comment: CT scan shows a subacute fracture. Discussed with the hospitalist who agrees to admit patient. Adult Trauma Course/Dx - Course Course Of Treatment: Patient presents emergency department from intermediate. Patient had an unwitnessed fall 2 days ago. Attempts to get some x-rays today and patient was unable to lie flat due to pain and complaining of shortness of breath. On exam vital signs show slightly decreased oxygen level. Patient with tenderness along the right ribs as well as pain in her right shoulder with range of motion. Also patient had some pain in her mid to low back. No check imaging studies urinating work. At this point will hold on any analgesia. Patient appears comfortable. We'll continue to attempt to reach the healthcare proxy she did not answer the phone. Patient does have a DNR but other most restrictions are not known at this time. We'll reassess. - Diagnoses Provider Diagnoses: Dementia, Multiple rib fractures, Pain - Physician Notifications Discussed Care Of Patient With: Rosie Mendoza Time Discussed With Above Provider: 18:17 Instructed by Provider To: Admit As Inpatient Discharge ED - Sign-Out/Discharge Documenting (check all that apply): Patient Departure - Discharge Plan Condition: Stable Disposition: ADMITTED TO [facility] - Billing Disposition and Condition Condition: STABLE Disposition: Admitted to [facility] - Attestation Statements Document Initiated by Eddie: Yes Documenting Scribe: Sarah Siegel Provider For Whom Eddie is Documenting (Include Credential): Flaca Akins MD. Scribe Attestation: I, Sarah Siegel, scribed for Flaca Akins MD. on 06/08/19 at 2137. Scribe Documentation Reviewed: Yes Provider Attestation: The documentation as recorded by the scribe, Sarah Siegel accurately reflects the service I personally performed and the decisions made by me, Flaca Akins MD. Status of Scribe Document: Viewed Consult Consult: 163 - I tried to get in touch with the pt's healthcare proxy (her daughter) to determine baseline mental status and to obtain a more accurate history, however she did not answer. I left a message for her. 1649 - I spoke with Dr. Preston who recommended doing a CT with and without contrast to determine whether or not the pt's fracture to L2 is acute or chronic. 1737 - I spoke with Dr. Mendoza about the pt who agrees to come and evaluate the pt. 1816 - I spoke with Dr. Mendoza and informed her that her L2 fracture is subacute on chronic. The pt will be admitted with dx of multiple rib fractures, pain, and dementia.
[2019-06-07 14:50] LABS: Urine Appearance Clear; Urine Bacteria Absent (Absent); Urine Bilirubin Negative (Negative); Urine Blood Negative (Negative); Urine Color Yellow; Urine Glucose Negative (Negative); Urine Ketones Negative (Negative); Urine Nitrite Negative (Negative); Urine Protein 1+(30 mg/dL) (Negative); Urine Red Blood Cell Absent (Absent); Urine Specific Gravity 1.017 (1.010-1.030); Urine Squamous Epithelial Cell Present (Absent); Urine Urobilinogen Negative (Negative); Urine White Blood Cell Absent (Absent)
[2019-06-07 15:02] LABS: Albumin 3.5 g/dL (3.2-5.2); Calcium 8.6 mg/dL (8.6-10.3); Magnesium 1.9 mg/dL (1.9-2.7); Potassium 4.4 mmol/L (3.5-5.0); Total Bilirubin 0.3 mg/dL (0.2-1.0)
[2019-06-07 15:08] LABS: Albumin/Globulin Ratio 1.3 (1-3); BUN/Creatinine Ratio 24.8 (8-20); EGFR African American 57.6 (>60); EGFR Non-African American 47.6 (>60); Globulin 2.7 g/dL (2-4); Total Protein 6.2 g/dL (6.4-8.9)
[2019-06-07 15:25] LABS: ABS Basophils 0.1 10^3/ul (0-0.2); ABS Eosinophils 0.3 10^3/ul (0-0.6); ABS Monocytes 0.6 10^3/ul (0-0.8); ABS Neutrophils 6.2 10^3/ul (1.5-7.7); Eosinophil % 3.2 %; Hematocrit 39 % (35-47); Hemoglobin 12.7 g/dL (12.0-16.0); Lymphocyte % 12.7 %; Mean Corpuscular HGB Conc 33 g/dL (31-36); Mean Corpuscular Hemoglobin 31 pg (27-31); Mean Corpuscular Volume 95 fL (80-97); Mean Platelet Volume 10.2 fL (7.4-10.4); Nucleated Red Blood Cells % 0.1; Platelet Count 167 10^3/uL (150-450); Red Blood Count 4.08 10^6 /uL (3.70-4.87); Red Cell Distribution Width 14 % (10-15); White Blood Count 8.1 10^3/uL (3.5-10.8)
[2019-06-07] MEDS ORDERED: Morphine 4 MG/ML VIAL (1 ml) 4 MG/ML VIAL IV ONE (16:59)
[2019-06-07] MEDS ORDERED: Ondansetron INJ* 2 MG/ML VIAL IV ONE (16:59)
[2019-06-07] MEDS ORDERED: NS 0.9% 1000 ML** 1,000 ML IV SCH ×2 (17:00→19:45)
[2019-06-07] MEDS ORDERED: Acetaminophen TAB* 325 MG PO PRN (19:43)
[2019-06-07] MEDS: hydrALAZINE IV* 20 MG/ML VIAL IV SLOW PU PRN (19:53)
[2019-06-07] MEDS ORDERED: Ondansetron INJ* 2 MG/ML VIAL IV PRN (19:57)
[2019-06-07] MEDS ORDERED: Dextrose 50% VIAL 50 ml IV PUSH PRN (19:59)
[2019-06-07] MEDS ORDERED: traMADol TAB* 50 MG PO PRN (20:00)
--- NOTE | 2019-06-07 22:10 | HP ---
AMENDED REPORT NOW INCLUDES DESIGNATED COSIGNER CC: Dr. Kelly Jesus * MEDICINE HISTORY AND PHYSICAL: DATE OF ADMISSION: 06/07/19 PROVIDER: Jason Wesley NP ATTENDING PHYSICIAN: Dr. Rosie Mendoza * (dictated by Jason Wesley NP). PRIMARY CARE PROVIDER: Dr. Kelly Jesus. CHIEF COMPLAINT: Back pain, status post fall on 06/03/19. HISTORY OF PRESENT ILLNESS: Ms. Tatum is an 88-year-old female who resides at [facility] in the formerly [facility] memory unit for her history of dementia. Ms. Tatum is unable to contribute much to the history, given her medical diagnosis of Alzheimer's dementia. She is able to tell me that she fell, she thinks she fell today, although [facility] reports that she fell on 06/03/19. This was an unwitnessed fall. Per her family and healthcare proxy, MarthaAlec Ding, Ms. Tatum was reported to have fallen in the middle of the night between Monday night and Monday morning. They were unaware of any complaints from the patient. Per the [facility] staff and the ER notes, she appears to have been complaining of pain. She was ordered x-rays on site at [facility] but was unable to tolerate lying flat on her back. She was very uncomfortable. EMS services was contacted and she was transferred to the ER for further evaluation. Here in the ER, she had multiple x-rays including chest x-ray and rib x-ray, which did show multiple right rib fractures from the third ribs and extending to the fourth, fifth, sixth and seventh ribs. Shoulder x-rays showed osteopenia , osteoarthritis, multiple right-sided rib fractures, no acute osseous injury to the shoulder. X-rays of the lumbar spine showed age indeterminate, potentially acute anterior and middle column fracture of L2 and the T-spine x- ray showed limited thoracic spine with multilevel degenerative disk disease and osteopenia. It was recommended that a CT scan be performed in order to determine the acuity of the potential L2 fracture and a CT of the lumbar spine showed that there is a moderate compression fracture of the L2 vertebral body, most consistent with a subacute to chronic duration fracture. Also, moderate to severe lumbar spondylosis as described and a small right pleural effusion. Given that the lumbar fracture was subacute, it was determined that the patient could stay here, although there is no neurosurgery on board for this weekend for consult. However, surgery is not indicated at this time, given this is a subacute injury. Ms. Tatum does appear comfortable at this time. She denies any pain. She is lying relatively flat in bed and she states that her pain has improved from previous. Per the family, Ms. Tatum's baseline is ambulation with a walker. She does have memory deficits at baseline and does have a history of wandering. Family does state that if she were to fall that she likely would have to get assistance to get back up. She would not likely be able to tell anyone when she fell or remember that she did fall. Blood work was performed, it is relatively unremarkable except for mild bumps in her renal function and LFTs. Her BNP was 139; however, she appears comfortable and vital signs are stable, although somewhat hypertensive. PAST MEDICAL HISTORY: 1. Dementia. 2. Hypertension. 3. Hyperlipidemia. 4. Hypothyroidism. 5. Bladder prolapse. 6. Type 2 diabetes, noninsulin dependent. 7. Paroxysmal atrial fibrillation. 8. History of recurrent UTIs. HOME MEDICATIONS: 1. Acetaminophen 650 q.4 hours p.r.n. 2. Metoprolol tartrate 12.5 mg q.12 hours. 3. Cholecalciferol 5000 units daily. 4. Simvastatin 10 mg at bedtime. 5. Melatonin 3 mg at bedtime. 6. Lisinopril 40 mg daily. 7. Levothyroxine 50 mcg on Monday, Monday, Monday, and Monday. 8. Hydrochlorothiazide 12.5 mg daily. 9. Glipizide XL 2.5 mg daily. 10. Donepezil 5 mg at bedtime. 11. Multivitamin 1 tab daily. 12. Aspirin 81 mg daily. ALLERGIES: No known allergies. FAMILY HISTORY: Per the records. The patient's mother had dementia and her father had history of MA and scarlet fever. SOCIAL HISTORY: She is unable to report, but records show that she is a former smoker. No reported alcohol or drug use. She resides at [facility] in the memory unit. Her daughter, Rohini Ding, is the healthcare proxy. REVIEW OF SYSTEMS: A 14-point review of systems was attempted. She denies any problems. She is a poor historian secondary to dementia. PHYSICAL EXAMINATION GENERAL: This is an elderly female seen lying in bed, in no acute distress. VITAL SIGNS: Temperature 98.6, pulse rate 69, respiratory rate 18, blood pressure 172/97, and O2 saturation is 97% on room air. HEENT: Pupils are equal and round and reactive to light. Extraocular movements are intact. Oral mucosa is moist. She has missing teeth in the top front of her mouth. NECK: Supple with full range of motion. She is able to fully rotate her head side- to-side without pain. LUNGS: Clear to auscultation bilaterally with no accessory muscle use. No wheezing, rales, or rhonchi. CARDIAC: Normal S1, S2 heart sounds. Regular rate and rhythm. No murmur appreciated. ABDOMEN: Soft, nontender with normoactive bowel sounds x4. No suprapubic tenderness. EXTREMITIES: No cyanosis. There is trace to +1 pitting edema to the lower extremities. NEURO: She is alert, she is oriented to self, she is confused to place, she is confused to time. She does follow commands. No focal weakness noted. SKIN: Warm and dry, appears grossly intact. DIAGNOSTIC STUDIES/LAB DATA: CBC: WBC 8.1, hemoglobin 12.7, hematocrit 39, platelet count 167. CMP: Sodium 135, potassium 4.4, chloride 103, carbon dioxide 24, BUN 27, creatinine 1.09, glucose 188, calcium 8.6, magnesium 1.9. Total bilirubin 0.3, AST 43, ALT 59, alk phos 91, BNP 139, total protein 6.2. UA positive for 1+ protein only. Imaging: As per HPI and old medical records were reviewed. ASSESSMENT AND PLAN: This is an 88-year-old female who presents today with concern for pain secondary to multiple rib fractures and a subacute compression fracture likely secondary to previous falls. She will be admitted to the hospital for further evaluation including pain management. Plans are as follows : 1. Intractable pain. She does appear comfortable at this time. She is responding well to the pain medication regimen. She has ordered PT and OT, will be ordered standing Tylenol [id number] and p.r.n. tramadol with the hope that she can participate tomorrow in therapies in order to evaluate her ability to return to [facility]. I did discuss with her family that should she have difficulty with ambulation and mobility that we may have to consider a subacute rehab facility in order to regain enough strength to return to [facility] as it is an assisted living facility. We will start with tramadol, consider other pain medication modalities, but would recommend avoiding full opiate agonist medications if possible. 2. Subacute compression fracture. Neurosurgery is not on-call this weekend, but again this is subacute. She could follow up with Neurosurgery as an outpatient. However, at this point in time, pain management and comfort measures are appropriate. 3. Acute kidney injury and abnormal LFTs, may be secondary to acute pain and recent stressors. Her creatinine is close to her previous baseline as of 2018, but it may be slightly elevated. We will continue gentle hydration of low rate , recheck tomorrow. 4. Hypertension. She is very hypertensive right now. We will resume her home medications and she is ordered p.r.n. hydralazine. We will continue her home metoprolol, lisinopril and hydrochlorothiazide. 5. Hyperlipidemia. Continue home simvastatin. 6. Hypothyroidism. Continue home levothyroxine dosing. 7. Type 2 diabetes. She is ordered consistent carbohydrate diet. She is ordered lispro sliding scale insulin. We will hold glipizide. 8. History of Alzheimer's dementia. Continue donepezil, supportive care. 9. FEN. She is ordered consistent carbohydrate diet. 10. DVT prophylaxis. Subcu heparin. 11. Code status: Reviewed with her daughter and healthcare proxy over the phone that she is to be a DNR. MOLST should be updated with the healthcare proxy when she is in the facility tomorrow. TIME SPENT: Approximately 60 minutes was spent on this admission, with more than half that time was spent [id number] with the patient obtaining history and physical, performing physical examination, and reviewing the plan of care. Plan of care was also reviewed with my attending, Dr. Mendoza, who is in agreement. JASON WESLEY NP [id number]/CPS #: [id number] LALITA
[2019-06-07] MEDS: Atorvastatin* 10 MG TAB PO SCH (23:34)
[2019-06-07] MEDS: Metoprolol Tartrate TAB* 25 MG PO SCH (23:34)
[2019-06-07] MEDS: Donepezil TAB* 5 MG PO SCH (23:35)
[2019-06-07] MEDS: Melatonin 3 MG TAB PO SCH (23:35)
[2019-06-07] MEDS: Acetaminophen TAB* 325 MG PO SCH (23:35)
[2019-06-07] MEDS: Heparin VIAL(*) 5000 UNITS/ML VIAL (FIVE THOUSAND) SUBCUT SCH (23:36)
[2019-06-08] MEDS: Acetaminophen TAB* 325 MG PO SCH ×3 (05:41→21:13)
[2019-06-08] MEDS: Heparin VIAL(*) 5000 UNITS/ML VIAL (FIVE THOUSAND) SUBCUT SCH ×3 (05:42→21:15)
[2019-06-08 07:14] LABS: CO2 Carbon Dioxide 21 mmol/L (22-32); Calcium 8.4 mg/dL (8.6-10.3); Chloride 104 mmol/L (101-111); Sodium 135 mmol/L (135-145)
[2019-06-08 07:20] LABS: Blood Urea Nitrogen 26 mg/dL (6-24); EGFR African American 63.6 (>60); EGFR Non-African American 52.6 (>60); Glucose 131 mg/dL (70-100)
[2019-06-08 07:50] LABS: Anion Gap 10 mmol/L (2-11)
[2019-06-08 07:56] LABS: ABS Basophils 0.1 10^3/ul (0-0.2); ABS Eosinophils 0.2 10^3/ul (0-0.6); ABS Lymphocytes 1.2 10^3/ul (1.0-4.8); ABS Monocytes 0.7 10^3/ul (0-0.8); ABS Neutrophils 5.3 10^3/ul (1.5-7.7); Eosinophil % 2.9 %; Hematocrit 36 % (35-47); Hemoglobin 12.1 g/dL (12.0-16.0); Lymphocyte % 15.5 %; Mean Corpuscular HGB Conc 34 g/dL (31-36); Mean Corpuscular Hemoglobin 31 pg (27-31); Mean Corpuscular Volume 93 fL (80-97); Nucleated Red Blood Cells % 0.1; Platelet Count 194 10^3/uL (150-450); Red Blood Count 3.88 10^6 /uL (3.70-4.87); Red Cell Distribution Width 14 % (10-15); White Blood Count 7.5 10^3/uL (3.5-10.8)
[2019-06-08] MEDS ORDERED: Hydrochlorothiazide TAB* 25 MG PO SCH (09:00)
[2019-06-08] MEDS: Insulin LISPRO* 1 UNITS UNIT SUBCUT SCH ×3 (09:03→17:40)
[2019-06-08] MEDS: Metoprolol Tartrate TAB* 25 MG PO SCH ×2 (09:04→21:14)
[2019-06-08] MEDS: Cholecalciferol TAB* 1000 UNITS PO SCH (09:05)
[2019-06-08] MEDS: Aspirin EC TAB* 81 MG TAB.EC PO SCH (09:05)
[2019-06-08] MEDS: Multivitamins/Minerals TAB PO SCH (09:06)
[2019-06-08] MEDS: Lisinopril TAB* 10 MG PO SCH (09:06)
--- NOTE | 2019-06-08 15:29 | PN ---
Subjective Date of Service: 06/08/19 Interval History: Ms. Tatum is feeling fine today. She offers no complaints but would like to go home. She is not sure where she is or where she lives. Denies CP, SOB, N/V. No back pain. No concerns from nursing. Family History: Unchanged from Admission Social History: Unchanged from Admission Past Medical History: Unchanged from Admission Objective Active Medications: Acetaminophen (Tylenol Tab*) 975 mg PO Q8H [facility] Aspirin (Aspirin Ec Tab*) 81 mg PO DAILY [facility] Atorvastatin Calcium (Lipitor*) 5 mg PO BEDTIME [facility] Cholecalciferol (Vitamin D Tab*) 5,000 units PO DAILY [facility] Dextrose (Dextrose 50% Vial 50 Ml*) 25 ml IV PUSH .FOR FS < 60 - SS PRN FS < 60 Donepezil HCl (Aricept Tab*) 5 mg PO BEDTIME [facility] Heparin Sodium (Porcine) (Heparin Vial(*)) 5,000 units SUBCUT Q8HR [facility] Hydralazine HCl (Apresoline Iv*) 5 mg IV SLOW PU Q6H PRN BLOOD PRESSURE Hydrochlorothiazide (Hydrodiuril Tab*) 12.5 mg PO DAILY [facility] Insulin Human Lispro (Humalog*) 0 units SUBCUT AC [facility]; Protocol Levothyroxine Sodium (Synthroid Tab*) 50 mcg PO MoTuWeThFr@0600 [facility] Lisinopril (Prinivil Tab*) 40 mg PO DAILY [facility] Melatonin (Melatonin) 3 mg PO BEDTIME [facility] Metoprolol Tartrate (Lopressor Tab*) 12.5 mg PO Q12HR [facility] Multivitamins/Minerals (Theragran/Minerals Tab*) 1 tab PO DAILY [facility] Ondansetron HCl (Zofran Inj*) 4 mg IV Q6H PRN NAUSEA/VOMITING Tramadol HCl (Ultram*) 50 mg PO Q6H PRN PAIN - MODERATE Vital Signs - 8 hr 06/08/19 06/08/19 06/08/19 07:30 07:54 11:15 Temperature 97.9 F Pulse Rate 57 Respiratory 17 17 18 Rate Blood Pressure 142/58 (mmHg) O2 Sat by Pulse 95 Oximetry Oxygen Devices in Use Now: None Appearance: Elderly female sitting in bed in NAD Ears/Nose/Mouth/Throat: Mucous Membranes Moist Neck: NL Appearance and Movements; NL JVP, Trachea Midline Respiratory: Symmetrical Chest Expansion and Respiratory Effort, Clear to Auscultation Cardiovascular: NL Sounds; No Murmurs; No JVD, RRR Abdominal: NL Sounds; No Tenderness; No Distention Extremities: - - +1 pitting BLE Neurological: - - Alert, oriented to self Lines/Tubes/Other Access: Clean, Dry and Intact Peripheral IV Nutrition: Taking PO's Result Diagrams: 06/08/19 07:33 06/08/19 13:48 Assess/Plan/Problems-Billing Assessment: Ms. Tatum is an 88 yo F with PMH of dementia, HTN, HLD, DM2, and afib; who presented to the ED with back pain after a fall and was admitted for pain management and PT/OT evaluation. - Patient Problems (1) Fall Comment: - Unwitnessed fall 06/03/19 at [facility] - Unclear if she is safe to return to [facility]; may need ANKUSH - Pending PT/OT evals (2) Compression fracture Comment: - Currently back pain free - CT shows subacute to chronic L2 compression fracture - Continue Tramadol, Tylenol (3) Rib fractures Code(s): S22.39XA - FRACTURE OF ONE RIB, UNSP SIDE, INIT FOR CLOS FX Comment: - Right side, ribs 3-7 - Continue Tramadol, Tylenol (4) Hypertension Code(s): I10 - ESSENTIAL (PRIMARY) HYPERTENSION Comment: - Hypertensive, SBP 140-160s - Continue metoprolol, lisinopril; increase HCTZ from 12.5mg to 25mg (5) Type 2 diabetes mellitus Comment: - Hold glipizide - Continue Lispro SS (6) Dementia Code(s): F03.90 - UNSPECIFIED DEMENTIA WITHOUT BEHAVIORAL DISTURBANCE Comment : - Continue Aricept (7) Paroxysmal A-fib Code(s): I48.0 - PAROXYSMAL ATRIAL FIBRILLATION Comment: - Not on anticoagulation - Continue metoprolol (8) Hyperlipidemia Code(s): E78.5 - HYPERLIPIDEMIA, UNSPECIFIED Comment: - Continue atorvastatin (9) Hypothyroidism Code(s): E03.9 - HYPOTHYROIDISM, UNSPECIFIED Comment: - Continue levothyroxine (10) DVT prophylaxis Comment: - Heparin SQ (11) DNR (do not resuscitate) Comment: - New MOLST completed and placed in chart Status and Disposition: Inpatient. Pending PT/OT evals as it is not clear if she is safe to return to [facility]. Attending: Racheal Evans
[2019-06-08] MEDS: Donepezil TAB* 5 MG PO SCH (21:14)
[2019-06-08] MEDS: Melatonin 3 MG TAB PO SCH (21:14)
[2019-06-08] MEDS: Atorvastatin* 10 MG TAB PO SCH (21:14)
[2019-06-09] MEDS: Acetaminophen TAB* 325 MG PO SCH ×3 (06:04→22:28)
[2019-06-09] MEDS: Heparin VIAL(*) 5000 UNITS/ML VIAL (FIVE THOUSAND) SUBCUT SCH ×3 (06:05→22:29)
[2019-06-09] MEDS: Insulin LISPRO* 1 UNITS UNIT SUBCUT SCH ×3 (08:31→17:30)
[2019-06-09] MEDS: Cholecalciferol TAB* 1000 UNITS PO SCH (08:57)
[2019-06-09] MEDS: Multivitamins/Minerals TAB PO SCH (08:58)
[2019-06-09] MEDS: Aspirin EC TAB* 81 MG TAB.EC PO SCH (08:58)
[2019-06-09] MEDS: Lisinopril TAB* 10 MG PO SCH (08:59)
[2019-06-09] MEDS: Hydrochlorothiazide TAB* 25 MG PO SCH (08:59)
[2019-06-09] MEDS: Metoprolol Tartrate TAB* 25 MG PO SCH ×2 (09:01→22:27)
--- NOTE | 2019-06-09 11:38 | PN ---
Subjective Date of Service: 06/09/19 Interval History: Patient seen and examined. States she did not work with PT today but nursing says PT was in the room with her this morning. She is able to state her needs and says she wants to do "rehab". Denies SOB, no chest pain, no rib or back pain. No overnight events. Family History: Unchanged from Admission Social History: Unchanged from Admission Past Medical History: Unchanged from Admission Objective Active Medications: Acetaminophen (Tylenol Tab*) 975 mg PO Q8H [facility] Last Admin: 06/09/19 06:04 Dose: 975 mg Aspirin (Aspirin Ec Tab*) 81 mg PO DAILY [facility] Last Admin: 06/09/19 08:58 Dose: 81 mg Atorvastatin Calcium (Lipitor*) 5 mg PO BEDTIME [facility] Last Admin: 06/08/19 21:14 Dose: 5 mg Cholecalciferol (Vitamin D Tab*) 5,000 units PO DAILY [facility] Last Admin: 06/09/19 08:57 Dose: 5,000 units Dextrose (Dextrose 50% Vial 50 Ml*) 25 ml IV PUSH .FOR FS < 60 - SS PRN PRN Reason: FS < 60 Donepezil HCl (Aricept Tab*) 5 mg PO BEDTIME [facility] Last Admin: 06/08/19 21:14 Dose: 5 mg Heparin Sodium (Porcine) (Heparin Vial(*)) 5,000 units SUBCUT Q8HR [facility] Last Admin: 06/09/19 06:05 Dose: 5,000 units Hydralazine HCl (Apresoline Iv*) 5 mg IV SLOW PU Q6H PRN PRN Reason: BLOOD PRESSURE Last Admin: 06/07/19 19:53 Dose: 5 mg Hydrochlorothiazide (Hydrodiuril Tab*) 25 mg PO DAILY [facility] Last Admin: 06/09/19 08:59 Dose: 25 mg Insulin Human Lispro (Humalog*) 0 units SUBCUT AC [facility]; Protocol Last Admin: 06/09/19 08:31 Dose: Not Given Levothyroxine Sodium (Synthroid Tab*) 50 mcg PO MoTuWeThFr@0600 [facility] Lisinopril (Prinivil Tab*) 40 mg PO DAILY [facility] Last Admin: 06/09/19 08:59 Dose: 40 mg Melatonin (Melatonin) 3 mg PO BEDTIME [facility] Last Admin: 06/08/19 21:14 Dose: 3 mg Metoprolol Tartrate (Lopressor Tab*) 12.5 mg PO Q12HR [facility] Last Admin: 06/09/19 09:01 Dose: 12.5 mg Multivitamins/Minerals (Theragran/Minerals Tab*) 1 tab PO DAILY [facility] Last Admin: 06/09/19 08:58 Dose: 1 tab Ondansetron HCl (Zofran Inj*) 4 mg IV Q6H PRN PRN Reason: NAUSEA/VOMITING Tramadol HCl (Ultram*) 50 mg PO Q6H PRN PRN Reason: PAIN - MODERATE Vital Signs - 8 hr 06/09/19 06/09/19 08:09 08:45 Temperature 97.5 F Pulse Rate 63 Respiratory 16 16 Rate Blood Pressure 147/62 (mmHg) O2 Sat by Pulse 94 Oximetry Oxygen Devices in Use Now: None Appearance: alert, NAD Eyes: No Scleral Icterus, PERRLA Ears/Nose/Mouth/Throat: Mucous Membranes Moist Neck: NL Appearance and Movements; NL JVP, Trachea Midline Respiratory: Symmetrical Chest Expansion and Respiratory Effort, Clear to Auscultation Cardiovascular: NL Sounds; No Murmurs; No JVD, - - irregular Abdominal: NL Sounds; No Tenderness; No Distention Extremities: No Edema, No Clubbing, Cyanosis Skin: No Rash or Ulcers Neurological: - - confused, appropriate Nutrition: Taking PO's Result Diagrams: 06/08/19 07:33 06/08/19 13:48 Microbiology and Other Data: Microbiology 06/07/19 20:00 Nasal Screen MRSA (PCR) - Final Nasal Mrsa Not Detected Assess/Plan/Problems-Billing Assessment: Ms. Tatum is an 88 yo F with PMH of dementia, HTN, HLD, DM2, and afib; who presented to the ED with back pain after a fall and was admitted for pain management and PT/OT evaluation. - Patient Problems (1) Fall Comment: - Unwitnessed fall 06/03/19 at [place] - Unclear if she is safe to return to [place]; may need ANKUSH - Pending PT/OT evals (2) Compression fracture Code(s): GFI9972 - SNOMED Code(s): 460756058 Comment: - Currently back pain free - CT shows subacute to chronic L2 compression fracture - Continue Tramadol, Tylenol, PT (3) Rib fractures Code(s): S22.39XA - FRACTURE OF ONE RIB, UNSP SIDE, INIT FOR CLOS FX SNOMED Code(s): 61097839 Comment: - Right side, ribs 3-7 - Continue Tramadol, Tylenol (4) Dementia Code(s): F03.90 - UNSPECIFIED DEMENTIA WITHOUT BEHAVIORAL DISTURBANCE SNOMED Code(s): 23665749 Comment: - Stable/at baseline - Continue Aricept (5) Hyperlipidemia Code(s): E78.5 - HYPERLIPIDEMIA, UNSPECIFIED SNOMED Code(s): 01409857 Comment: - Continue atorvastatin (6) Paroxysmal A-fib Code(s): I48.0 - PAROXYSMAL ATRIAL FIBRILLATION SNOMED Code(s): 923734755 Comment: - Not on anticoagulation - Continue metoprolol (7) DVT prophylaxis Current Visit: No Status: Acute Priority: Medium Code(s): MMD2127 - SNOMED Code(s): 966736454 Comment: - Heparin SQ (8) Type 2 diabetes mellitus Comment: - Hold glipizide - Continue Lispro SS (9) Hypertension Code(s): I10 - ESSENTIAL (PRIMARY) HYPERTENSION SNOMED Code(s): 53789476 Comment: - BP stable, continue metoprolol, lisinopril; increase HCTZ from 12.5mg to 25mg (10) DNR (do not resuscitate) Comment: - New MOLST completed and placed in chart Status and Disposition: Inpatient. Pending PT/OT evals as it is not clear if she is safe to return to [place].
[2019-06-09] MEDS ORDERED: Docusate CAP* 100 MG PO PRN (11:39)
[2019-06-09] MEDS: Magnesium Hydroxide LIQ* 30 ML UDC PO PRN (12:48)
[2019-06-09] MEDS: Donepezil TAB* 5 MG PO SCH (22:26)
[2019-06-09] MEDS: Atorvastatin* 10 MG TAB PO SCH (22:28)
[2019-06-09] MEDS: Melatonin 3 MG TAB PO SCH (22:28)
[2019-06-10] MEDS: Acetaminophen TAB* 325 MG PO SCH ×3 (05:35→21:56)
[2019-06-10] MEDS: Levothyroxine TAB* 50 MCG TAB PO SCH (05:35)
[2019-06-10] MEDS: Heparin VIAL(*) 5000 UNITS/ML VIAL (FIVE THOUSAND) SUBCUT SCH ×3 (05:36→21:57)
[2019-06-10] MEDS: Insulin LISPRO* 1 UNITS UNIT SUBCUT SCH ×3 (09:42→16:46)
[2019-06-10] MEDS: Metoprolol Tartrate TAB* 25 MG PO SCH ×2 (09:43→21:55)
[2019-06-10] MEDS: Cholecalciferol TAB* 1000 UNITS PO SCH (09:44)
[2019-06-10] MEDS: Hydrochlorothiazide TAB* 25 MG PO SCH (09:47)
[2019-06-10] MEDS: Multivitamins/Minerals TAB PO SCH (09:47)
[2019-06-10] MEDS: Aspirin EC TAB* 81 MG TAB.EC PO SCH (09:47)
[2019-06-10] MEDS: Lisinopril TAB* 10 MG PO SCH (09:50)
[2019-06-10] MEDS: Magnesium Hydroxide LIQ* 30 ML UDC PO PRN (14:25)
--- NOTE | 2019-06-10 16:37 | PN ---
Subjective Date of Service: 06/10/19 Interval History: Patient seen and examined. Chart reviewed, no overnight events. Patient remains pleasantly confused, but appropriate. Denies pain, no fevers or chills. No SOB. States her legs feel weak sometimes. Family History: Unchanged from Admission Social History: Unchanged from Admission Past Medical History: Unchanged from Admission Objective Active Medications: Acetaminophen (Tylenol Tab*) 975 mg PO Q8H [facility] Last Admin: 06/10/19 14:25 Dose: 975 mg Aspirin (Aspirin Ec Tab*) 81 mg PO DAILY [facility] Last Admin: 06/10/19 09:47 Dose: 81 mg Atorvastatin Calcium (Lipitor*) 5 mg PO BEDTIME [facility] Last Admin: 06/09/19 22:28 Dose: 5 mg Cholecalciferol (Vitamin D Tab*) 5,000 units PO DAILY [facility] Last Admin: 06/10/19 09:44 Dose: 5,000 units Dextrose (Dextrose 50% Vial 50 Ml*) 25 ml IV PUSH .FOR FS < 60 - SS PRN PRN Reason: FS < 60 Docusate Sodium (Colace Cap*) 100 mg PO BID PRN PRN Reason: CONSTIPATION Donepezil HCl (Aricept Tab*) 5 mg PO BEDTIME [facility] Last Admin: 06/09/19 22:26 Dose: 5 mg Heparin Sodium (Porcine) (Heparin Vial(*)) 5,000 units SUBCUT Q8HR [facility] Last Admin: 06/10/19 14:27 Dose: 5,000 units Hydralazine HCl (Apresoline Iv*) 5 mg IV SLOW PU Q6H PRN PRN Reason: BLOOD PRESSURE Last Admin: 06/07/19 19:53 Dose: 5 mg Hydrochlorothiazide (Hydrodiuril Tab*) 25 mg PO DAILY [facility] Last Admin: 06/10/19 09:47 Dose: 25 mg Influenza Virus Vaccine (Fluarix Quad [id number] Syr) 0.5 ml IM .ONCE ONE Stop: 06/11/19 09:01 Insulin Human Lispro (Humalog*) 0 units SUBCUT [facility]; Protocol Last Admin: 06/10/19 12:21 Dose: 3 units Levothyroxine Sodium (Synthroid Tab*) 50 mcg PO MoTuWeThFr@0600 [facility] Last Admin: 06/10/19 05:35 Dose: 50 mcg Lisinopril (Prinivil Tab*) 40 mg PO DAILY [facility] Last Admin: 06/10/19 09:50 Dose: 40 mg Magnesium Hydroxide (Milk Of Magnesia Liq*) 30 ml PO Q6H PRN PRN Reason: CONSTIPATION Last Admin: 06/10/19 14:25 Dose: 30 ml Melatonin (Melatonin) 3 mg PO BEDTIME [facility] Last Admin: 06/09/19 22:28 Dose: 3 mg Metoprolol Tartrate (Lopressor Tab*) 12.5 mg PO Q12HR [facility] Last Admin: 06/10/19 09:43 Dose: 12.5 mg Multivitamins/Minerals (Theragran/Minerals Tab*) 1 tab PO DAILY [facility] Last Admin: 06/10/19 09:47 Dose: 1 tab Ondansetron HCl (Zofran Inj*) 4 mg IV Q6H PRN PRN Reason: NAUSEA/VOMITING Tramadol HCl (Ultram*) 50 mg PO Q6H PRN PRN Reason: PAIN - MODERATE Vital Signs - 8 hr 06/10/19 06/10/19 06/10/19 10:00 11:19 15:00 Temperature 97.5 F 96.8 F Pulse Rate 52 58 Respiratory 16 16 16 Rate Blood Pressure 142/67 152/72 (mmHg) O2 Sat by Pulse 95 94 Oximetry Oxygen Devices in Use Now: None Appearance: alert, NAD Eyes: PERRLA Ears/Nose/Mouth/Throat: Mucous Membranes Moist Neck: NL Appearance and Movements; NL JVP, Trachea Midline Respiratory: Symmetrical Chest Expansion and Respiratory Effort, Clear to Auscultation Cardiovascular: NL Sounds; No Murmurs; No JVD, RRR Extremities: No Edema Skin: No Rash or Ulcers Neurological: - - A&Ox2 Nutrition: Taking PO's Result Diagrams: 06/08/19 07:33 06/08/19 13:48 Microbiology and Other Data: Microbiology 06/07/19 20:00 Nasal Screen MRSA (PCR) - Final Nasal Mrsa Not Detected Assess/Plan/Problems-Billing Assessment: Ms. Tatum is an 88 yo F with PMH of dementia, HTN, HLD, DM2, and afib; who presented to the ED with back pain after a fall and was admitted for pain management and PT/OT evaluation. - Patient Problems (1) Fall Comment: - Unwitnessed fall 06/03/19 at [place] - Will need ANKUSH per PT/OT evals (2) Compression fracture Code(s): DGT8608 - SNOMED Code(s): 892652337 Comment: - Currently back pain free - CT shows subacute to chronic L2 compression fracture - Continue Tramadol, Tylenol, PT (3) Rib fractures Code(s): S22.39XA - FRACTURE OF ONE RIB, UNSP SIDE, INIT FOR CLOS FX SNOMED Code(s): 25150482 Comment: - Right side, ribs 3-7 - Continue Tramadol, Tylenol, IS (4) Dementia Code(s): F03.90 - UNSPECIFIED DEMENTIA WITHOUT BEHAVIORAL DISTURBANCE SNOMED Code(s): 33176929 Comment: - Stable/at baseline - Continue Aricept (5) Hyperlipidemia Code(s): E78.5 - HYPERLIPIDEMIA, UNSPECIFIED SNOMED Code(s): 96566835 Comment: - Continue atorvastatin (6) Paroxysmal A-fib Code(s): I48.0 - PAROXYSMAL ATRIAL FIBRILLATION SNOMED Code(s): 279036262 Comment: - Not on anticoagulation - Continue metoprolol (7) DVT prophylaxis Current Visit: No Status: Acute Priority: Medium Code(s): LZZ2479 - SNOMED Code(s): 707609308 Comment: - Heparin SQ (8) Type 2 diabetes mellitus Comment: - Hold glipizide - Continue Lispro SS (9) Hypertension Code(s): I10 - ESSENTIAL (PRIMARY) HYPERTENSION SNOMED Code(s): 47896974 Comment: - BP stable, continue metoprolol, lisinopril; increase HCTZ from 12.5mg to 25mg (10) DNR (do not resuscitate) Comment: - New MOLST completed and placed in chart Status and Disposition: Inpatient. Pending placement at [facility], [facility]
[2019-06-10] MEDS: Donepezil TAB* 5 MG PO SCH (21:55)
[2019-06-10] MEDS: Melatonin 3 MG TAB PO SCH (21:56)
[2019-06-10] MEDS: Atorvastatin* 10 MG TAB PO SCH (21:56)
[2019-06-11] MEDS: Heparin VIAL(*) 5000 UNITS/ML VIAL (FIVE THOUSAND) SUBCUT SCH ×3 (05:39→21:01)
[2019-06-11] MEDS: Acetaminophen TAB* 325 MG PO SCH ×3 (05:40→22:51)
[2019-06-11] MEDS: Levothyroxine TAB* 50 MCG TAB PO SCH (05:40)
[2019-06-11] MEDS: Insulin LISPRO* 1 UNITS UNIT SUBCUT SCH ×4 (08:39→22:51)
[2019-06-11] MEDS: Metoprolol Tartrate TAB* 25 MG PO SCH ×2 (08:40→21:00)
[2019-06-11] MEDS: Multivitamins/Minerals TAB PO SCH (08:40)
[2019-06-11] MEDS: Lisinopril TAB* 10 MG PO SCH (08:41)
[2019-06-11] MEDS: Cholecalciferol TAB* 1000 UNITS PO SCH (08:42)
[2019-06-11] MEDS: hydrALAZINE IV* 20 MG/ML VIAL IV SLOW PU PRN (08:43)
[2019-06-11] MEDS: Aspirin EC TAB* 81 MG TAB.EC PO SCH (08:43)
[2019-06-11] MEDS: Hydrochlorothiazide TAB* 25 MG PO SCH (08:43)
[2019-06-11] MEDS ORDERED: Influenza VAC *QUAD* 2019-20* 0.5 ML SYRINGE IM ONE (09:00)
[2019-06-11] MEDS ORDERED: NS 0.9% 500 ML* 500 ML IV ONE (09:58)
[2019-06-11 12:05] LABS: ABS Eosinophils 0.2 10^3/ul (0-0.6); ABS Lymphocytes 0.8 10^3/ul (1.0-4.8); ABS Monocytes 0.4 10^3/ul (0-0.8); ABS Neutrophils 7.2 10^3/ul (1.5-7.7); Eosinophil % 2.2 %; Hematocrit 37 % (35-47); Hemoglobin 12.3 g/dL (12.0-16.0); Lymphocyte % 9.5 %; Mean Corpuscular HGB Conc 33 g/dL (31-36); Mean Corpuscular Hemoglobin 31 pg (27-31); Mean Corpuscular Volume 93 fL (80-97); Mean Platelet Volume 9.8 fL (7.4-10.4); Nucleated Red Blood Cells % 0.1; Platelet Count 220 10^3/uL (150-450); Red Blood Count 3.96 10^6 /uL (3.70-4.87); Red Cell Distribution Width 14 % (10-15); White Blood Count 8.7 10^3/uL (3.5-10.8)
[2019-06-11 12:19] LABS: INR 0.95 (0.82-1.09)
[2019-06-11 12:36] LABS: ALT 77 U/L (7-52); AST 46 U/L (13-39); Albumin 3.5 g/dL (3.2-5.2); Albumin/Globulin Ratio 1.3 (1-3); Alkaline Phosphatase 126 U/L (34-104); Anion Gap 6 mmol/L (2-11); BUN/Creatinine Ratio 25.6 (8-20); Blood Urea Nitrogen 32 mg/dL (6-24); CO2 Carbon Dioxide 29 mmol/L (22-32); Calcium 8.9 mg/dL (8.6-10.3); Chloride 100 mmol/L (101-111); EGFR African American 49.2 (>60); EGFR Non-African American 40.6 (>60); Globulin 2.6 g/dL (2-4); Glucose 254 mg/dL (70-100); Magnesium 2.4 mg/dL (1.9-2.7); Potassium 4.5 mmol/L (3.5-5.0); Sodium 135 mmol/L (135-145); Total Protein 6.1 g/dL (6.4-8.9)
--- NOTE | 2019-06-11 14:03 | CONS ---
NEUROLOGY CONSULTATION REPORT: DATE OF CONSULT: 06/11/19 CONSULTING PROVIDER: Altagracia Smiley NP who activated the code ta. CHIEF COMPLAINT: Sudden onset of confusion and questionable left facial droop. HISTORY OF PRESENT ILLNESS: Mrs. Norma Tatum is a pleasant 88-year-old right - handed female with a past medical history of dementia on donepezil, paroxysmal atrial fibrillation on aspirin, type 2 diabetes, dyslipidemia, who has been hospitalized at [facility] for intractable pain due to multiple rib fractures and subacute compression fracture in the lumbar spine. Today, the patient participated with physical therapy for an hour. She received hydrochlorothiazide at approximately 8:43 a.m. She sat on a chair for approximately 1 hour to have breakfast. She suddenly developed a sudden onset of confusion, reduced alertness, and questionable left facial droop. Last known well time was 06/11/19 at 9:22. Diane ta was called at 10:00. Initial provider assessment [address] was completed at 10:22. CT results reported 10:23. NIH stroke scale was 1 due to reduced awareness to one question that she did not answer appropriately. TPA was not administered due to low NIH stroke scale and that was deemed at 10:11 a.m. Please note the patient's blood pressure dropped to 75/40 with a heart rate of 48 on 9:42 a.m. today when she was being moved from standing to a lying position. After approximately 30 minutes, the patient's symptoms completely recovered. She was still having trouble recalling the year of her birthday but she was answering appropriately. She was more awake. According to the staff, prior to the code ta when her blood pressure was low, the patient was clammy, diaphoretic, and pale appearing. A CT head without contrast was obtained and showed no evidence of acute intracranial abnormality. The patient had a CT head without contrast, which showed advanced extensive small vessel ischemic changes with global atrophy. No evidence of an acute infarction. PAST MEDICAL HISTORY: Dementia, hypertension, dyslipidemia, hypothyroidism, type 2 diabetes, paroxysmal atrial fibrillation, recurrent UTIs. HOME MEDICATIONS: 1. Acetaminophen 650 mg q.4 hours as needed. 2. Metoprolol 12.5 mg every 12 hours. 3. Vitamin D 5000 units daily. 4. Simvastatin 10 mg at bedtime. 5. Melatonin 3 mg at bedtime. 6. Lisinopril 40 mg daily. 7. Hydrochlorothiazide 12.5 mg daily. 8. Levothyroxine 50 mcg on Monday, Monday, Monday, , and Monday. 9. Glipizide 2.5 mg daily. 10. Donepezil 5 mg at bedtime. 11. Multivitamins 1 tablet daily. 12. Aspirin 81 mg daily. ALLERGIES: No known drug allergies. FAMILY HISTORY: No family history of stroke or seizures. SOCIAL HISTORY: The patient lives at [place]. She denied any tobacco or alcohol use. REVIEW OF SYSTEMS: A 14-point review of systems was obtained, otherwise negative except what was mentioned in the HPI. PHYSICAL EXAM: Vitals: Temperature of 97.9, pulse of 56, oxygen saturation of 92%, blood pressure 122/45. General: Well-nourished, well-developed elderly female in no acute distress. Head: Atraumatic, normocephalic without obvious abnormalities. Eyes: Conjunctivae/corneas are clear. Neck is supple and symmetrical with no carotid bruits. Cardiovascular: Regular rate and rhythm with normal S1, S2. Respiratory: Clear to auscultation bilaterally with no wheezing or rhonchi. Extremities: Normal range of motion with no cyanosis or hammertoes. Skin: No skin lesions or laceration. There is ecchymosis on the extremities due to previous IV insertions. Psychiatric: Affect is broad, normal mood. Easy to establish rapport. Neurological Examination: Mental status awake, alert, oriented to person place, time, but not general circumstances. She did not know her date, but knew the month and day. She did not know the year of her birthday. Mild dysarthria, which appears to be chronic as her speech abnormality has not changed since before the event. No aphasia. Cranial Nerves: Pupils equal and reactive to light, extraocular muscles are intact, normal sensation in the face bilaterally, no facial asymmetry, tongue is symmetric and midline with no atrophy or fasciculation. Motor: Normal motor strength and tone throughout. Sensation is intact to light touch. There is no tactile extinction. Reflexes trace throughout, absent at the ankles. Downgoing plantar responses bilaterally. Coordination normal [id number]-[id number]-jpam bilaterally. Gait was not assessed. ASSESSMENT AND RECOMMENDATION: Mrs. Norma Tatum is an 88-year-old female who had a sudden onset of encephalopathy associated with questionable left facial droop. This was in the setting of systemic hypotension. 1. Sudden onset of a transient encephalopathy most likely due to sudden drop in her blood pressure. Symptomatic hypotension or orthostatic hypotension is the likely diagnosis. The patient is recovering well. NIH stroke scale was 1. She was not a candidate for IV tPA due to the low suspicion for transient ischemic attack or stroke. She is not a candidate for thrombectomy as we do not suspect she has large vessel occlusion. The patient's hydrochlorothiazide was increased during this hospitalization. Some of the risk factors for postural hypertension include postprandial and hydrochlorothiazide therapy. Consider substituting this antihypertensive agent to a different one as it may cause problems like dehydration in the elderly. 2. Dementia. Continue donepezil. 3. History of atrial fibrillation. She is currently on aspirin therapy. Given the recent fall, she is at risk of complication with anticoagulation therapy. I will neurologically sign off. Please contact us for any questions or concerns. I do not recommend any further workup at this time. Please keep the patient's blood pressure within normal range. IV fluids as well as adjusting her antihypertensive agents may help maintain a normotensive state. [id number]/[facility] #: [id number] MTDD
[2019-06-11 15:59] LABS: Troponin I 1.41 ng/mL (<0.04)
--- NOTE | 2019-06-11 16:03 | ECHO ---
*[facility]* [place] [address] Fax #: [phone] Transthoracic Echocardiogram Patient: Norma Tatum : 1930 Study Date: 06/11/2019 Age: 88 Gender: F HR: Height: 64 in /162.6 cm BSA: 1.98 m^2 Weight: 204.6 lb /93 kg BMI: 35.2 kg/m^2 *Petroleum Plant Operator: * Angelina Velazquez [facility] *Referring Physician: * Altagracia Smiley *Reading Physician: * Balta Hirsch MD Indications: Elevated Troponins. History: Dementia. Atrial fibrillation. Risk factors: Hypertension. Diabetes mellitus. Dyslipidemia. Conclusions Summary: - Left ventricle: There is mild to moderate concentric hypertrophy. Systolic function is normal. The estimated ejection fraction is 55-60%. Wall motion is normal; there are no regional wall motion abnormalities. - Right ventricle: Systolic function is normal. - Mitral valve: There is mild to moderate regurgitation. - Aortic valve: There is no evidence of stenosis. There is trace regurgitation. - Tricuspid valve: There is trace regurgitation. - Pericardium, extracardiac: There is no significant pericardial effusion. - Pulmonary arteries: Systolic pressure can not be accurately estimated. - Compared to study of 09/14/15, there is little change. Study data: Transthoracic echocardiogram. Procedure: Transthoracic echocardiography was performed. Image quality was adequate. The study was technically limited due to poor patient compliance. Complete 2D, spectral Doppler, and color flow Doppler. Location: Bedside. Patient status: Inpatient. Patient room number: 403. Rhythm: Normal sinus rhythm. Findings Left ventricle: The cavity size is normal. There is mild to moderate concentric hypertrophy. Systolic function is normal. The estimated ejection fraction is 55-60%. Wall motion is normal; there are no regional wall motion abnormalities. Doppler parameters are consistent with abnormal left ventricular relaxation (grade 1 diastolic dysfunction). Right ventricle: The cavity size is normal. Wall thickness is mildly increased. Systolic function is normal. Left atrium: The atrium is mildly dilated. Right atrium: The atrium is mildly dilated. Mitral valve: The leaflets are mildly thickened. There is no evidence of stenosis. There is mild to moderate regurgitation. Aortic valve: The valve is trileaflet. The leaflets are mildly thickened. There is no evidence of stenosis. There is trace regurgitation. Tricuspid valve: The leaflets are normal thickness. There is no evidence of stenosis. There is trace regurgitation. Pulmonic valve: The leaflets are normal thickness. There is no evidence of stenosis. There is trace regurgitation. Aorta: Aortic root: The aortic root is appears normal. Ascending aorta: The ascending aorta is mildly dilated. Aortic arch: The aortic arch is poorly visualized. Pericardium: A prominent pericardial fat pad is present. There is no significant pericardial effusion. Pulmonary arteries: Poorly visualized. Systolic pressure can not be accurately estimated. Systemic veins: Inferior vena cava: The vessel is normal in size. There is (>= 50%) respiratory change in the IVC dimension. Measurements Left ventricle Value Ref Right atrium Value Ref BOOM, LAX 4.8 cm 3.8 - 5.2 SI dim, ES 5.0 cm 3.4 - 5.3 ESD, LAX 3.0 cm 2.2 - 3.5 ML dim, ES, A4C (H) 4.7 cm 2.6 - 4.4 FS, LAX 37 % 27 - 45 SI dim, ES, A4C 5.0 cm 3.4 - 5.3 PW, ED, LAX (H) 1.3 cm 0.6 - 0.9 Estimated RAP 3 mm Hg --------- FS 37 % 27 - 45 PW, ED (H) 1.3 cm 0.6 - 0.9 Aortic valve Value Ref E', lat jyotsna, TDI (L) 4.4 cm/sec >=10.0 Jyotsna diam, ED 2.2 cm -- ------- E/e', lat jyotsna, 17 Jyotsna diam/bsa, ED 1.1 cm/m^2 ----- ---- TDI Peak v, S 1.6 m/sec --------- E', med jyotsna, TDI (L) 4.8 cm/sec >=7.0 VTI, S 31.5 cm -- ------- E/e', med jyotsna, 15 Mean grad, S 4.0 mm Hg ----- ---- TDI Peak grad, S 10.2 mm Hg --------- E', avg, TDI 4.6 cm/sec LVOT/AV, VTI ratio 0.86 ----- ---- E/e', avg, TDI (H) 16 <=14 ROSSANA, VTI 2.69 cm^2 -- ------- ROSSANA, Vmax 2.37 cm^2 --------- LVOT Value Ref Diam, S 2.00 cm Mitral valve Value Ref Area 3.1 cm^2 Peak E 0.73 m/sec --------- Peak mickey, S 1.21 m/sec Peak A 1.07 m/sec --------- VTI, S 27.0 cm Decel time 225 ms --------- Peak grad, S 6 mm Hg Peak grad, D 2.1 mm Hg --------- Mean grad, S 3 mm Hg Peak E/A ratio 0.7 --------- SV 83 ml SV/bsa 42 ml/m^2 Pulmonic valve Value Ref Peak v, S 0.96 m/sec --------- Ventricular septum Value Ref Peak grad, S 4.0 mm Hg --------- IVS, ED (H) 1.4 cm 0.6 - 0.9 Aortic root Value Ref Right ventricle Value Ref Root diam 3.2 cm <4.1 AW thickness, ED (H) 0.6 cm 0.1 - 0.5 BOOM, LAX 3.5 cm Ascending aorta Value Ref BOOM minor ax, (H) 3.8 cm 1.9 - 3.5 AAo AP diam, S 3.7 cm --------- A4C mid Decending aorta Value Ref Left atrium Value Ref René peak mickey 0.63 m/sec --------- AP dim, ES (H) 4.80 cm 2.70 - 3.80 Inferior vena cava Value Ref ML dim, A4C 4.7 cm Diam 1.9 cm --------- SI dim, A4C 5.5 cm Vol/bsa, ES, 1-p 32 ml/m^2 11 - 40 A4C Vol/bsa, ES, A/L (H) 37 ml/m^2 16 - 34 Legend: (L) and (H) brad values outside specified reference range. Prepared and electronically signed by Balta Hirsch MD 06/11/2019 16:03
--- NOTE | 2019-06-11 16:45 | PN ---
Subjective Date of Service: 06/11/19 Interval History: Called to room by RN for patient having alteration in VS and mentation. Patient found to have some respiratory distress and hypoxia, placed on O2, then also found to be hypotensive and bradycardic with manual BP of 76/41 and HR 48. Patient was also pale with some drool on her face and what appeared to be a left facial droop. Diane Kumar called. Dr. Ma at bedside for exam. CT head was negative. NIH stroke scale was 1. Patient received bolus NS, EKG, labs and placed on tele. Patient unable to articulate how she is feeling 2/2 dementia, but does not appear to be in acute distress and not complaining of pain. Family History: Unchanged from Admission Social History: Unchanged from Admission Past Medical History: Unchanged from Admission Objective Active Medications: Acetaminophen (Tylenol Tab*) 975 mg PO Q8H [facility] Last Admin: 06/11/19 14:28 Dose: 975 mg Aspirin (Aspirin Ec Tab*) 81 mg PO DAILY [facility] Last Admin: 06/11/19 08:43 Dose: 81 mg Atorvastatin Calcium (Lipitor*) 5 mg PO BEDTIME [facility] Last Admin: 06/10/19 21:56 Dose: 5 mg Cholecalciferol (Vitamin D Tab*) 5,000 units PO DAILY [facility] Last Admin: 06/11/19 08:42 Dose: 5,000 units Dextrose (Dextrose 50% Vial 50 Ml*) 25 ml IV PUSH .FOR FS < 60 - SS PRN PRN Reason: FS < 60 Docusate Sodium (Colace Cap*) 100 mg PO BID PRN PRN Reason: CONSTIPATION Donepezil HCl (Aricept Tab*) 5 mg PO BEDTIME [facility] Last Admin: 06/10/19 21:55 Dose: 5 mg Heparin Sodium (Porcine) (Heparin Vial(*)) 5,000 units SUBCUT Q8HR [facility] Last Admin: 06/11/19 14:29 Dose: 5,000 units Hydrochlorothiazide (Hydrodiuril Tab*) 25 mg PO DAILY [facility] Last Admin: 06/11/19 08:43 Dose: 25 mg Insulin Human Lispro (Humalog*) 0 units SUBCUT AC [facility]; Protocol Last Admin: 06/11/19 16:23 Dose: Not Given Levothyroxine Sodium (Synthroid Tab*) 50 mcg PO MoTuWeThFr@0600 [facility] Last Admin: 06/11/19 05:40 Dose: 50 mcg Lisinopril (Prinivil Tab*) 40 mg PO DAILY [facility] Last Admin: 06/11/19 08:41 Dose: 40 mg Magnesium Hydroxide (Milk Of Magnzahraa Liq*) 30 ml PO Q6H PRN PRN Reason: CONSTIPATION Last Admin: 06/10/19 14:25 Dose: 30 ml Melatonin (Melatonin) 3 mg PO BEDTIME [facility] Last Admin: 06/10/19 21:56 Dose: 3 mg Metoprolol Tartrate (Lopressor Tab*) 12.5 mg PO Q12HR [facility] Last Admin: 06/11/19 08:40 Dose: 12.5 mg Multivitamins/Minerals (Theragran/Minerals Tab*) 1 tab PO DAILY [facility] Last Admin: 06/11/19 08:40 Dose: 1 tab Ondansetron HCl (Zofran Inj*) 4 mg IV Q6H PRN PRN Reason: NAUSEA/VOMITING Tramadol HCl (Ultram*) 50 mg PO Q6H PRN PRN Reason: PAIN - MODERATE Vital Signs - 8 hr 06/11/19 06/11/19 06/11/19 09:42 09:55 10:50 Temperature 97.9 F 97.3 F Pulse Rate 48 56 58 Respiratory Rate Blood Pressure 75/40 122/45 146/62 (mmHg) O2 Sat by Pulse 87 92 100 Oximetry 06/11/19 06/11/19 06/11/19 11:15 15:09 15:17 Temperature 97.6 F 97.8 F 97.7 F Pulse Rate 57 57 73 Respiratory 20 16 16 Rate Blood Pressure 158/61 165/56 152/60 (mmHg) O2 Sat by Pulse 99 98 96 Oximetry Oxygen Devices in Use Now: Nasal Cannula Appearance: initially drowsy and difficulty following commands Eyes: PERRLA Ears/Nose/Mouth/Throat: NL Teeth, Lips, Gums, Mucous Membranes Moist Neck: NL Appearance and Movements; NL JVP, Trachea Midline Respiratory: Symmetrical Chest Expansion and Respiratory Effort, Clear to Auscultation Cardiovascular: NL Sounds; No Murmurs; No JVD, - - bradycardic Abdominal: NL Sounds; No Tenderness; No Distention Extremities: No Clubbing, Cyanosis Skin: No Rash or Ulcers Neurological: - - confused Result Diagrams: 06/11/19 11:55 06/11/19 11:55 Microbiology and Other Data: Microbiology 06/07/19 20:00 Nasal Screen MRSA (PCR) - Final Nasal Mrsa Not Detected Diagnostic Imaging: Patient Name: NORMA LEWIS Medical Record#: [id number] Ordering Physician: Janelle HAN Acct.#: [id number] : 1930 Age: 88 Sex: F Location: [address] [place] [address] MEDICAL Exam Date: 06/11/19 101 ADM Status: ADM IN Order Information: CT BRAIN WO Accession Number: [id number] CPT: 03822 HISTORY: CVA COMPARISONS: May 03, 2017 TECHNIQUE: Multiple contiguous axial CT scans were obtained of the head without intravenous contrast. FINDINGS: HEMORRHAGE/INFARCT: There is no hemorrhage or acute infarct. MASSES/SHIFT: There is no mass or shift. EXTRA-AXIAL SPACES: There are no extra-axial fluid collections. SULCI AND VENTRICLES: There is diffuse and proportional enlargement of the sulci and ventricles. CEREBRUM: There is extensive hypoattenuation of the periventricular and subcortical white matter. BRAINSTEM: There are no focal parenchymal abnormalities. CEREBELLUM: There are no focal parenchymal abnormalities. VESSELS: There is calcification of the cavernous segments of the internal carotid arteries bilaterally and of the distal vertebral arteries bilaterally. PARANASAL SINUSES: The paranasal sinuses are clear. ORBITS: The orbits are unremarkable. BONES AND SOFT TISSUE: No bone or soft tissue abnormalities are noted. OTHER: None IMPRESSION: NO ACUTE INTRACRANIAL PATHOLOGY. DIFFUSE INVOLUTIONAL CHANGE WITH CHRONIC SMALL VESSEL ISCHEMIC CHANGES. PRELIMINARY FINDINGS WERE DISCUSSED WITH DR. MA FROM NEUROLOGY AT APPROXIMATELY 10:34 AM ON 2018. *[facility]* [place] [address] Fax #: [phone] Transthoracic Echocardiogram Patient: Norma Lewis : 1930 Study Date: 06/11/2019 Age: 88 Gender: F HR: Height: 64 in /162.6 cm BSA: 1.98 m^2 Weight: 204.6 lb /93 kg BMI: 35.2 kg/m^2 *Vice President Payer: * Angelina Velazquez RD *Referring Physician: * Altagracia Smiley *Reading Physician: * Balta Hirsch MD Indications: Elevated Troponins. History: Dementia. Atrial fibrillation. Risk factors: Hypertension. Diabetes mellitus. Dyslipidemia. Conclusions Summary: - Left ventricle: There is mild to moderate concentric hypertrophy. Systolic function is normal. The estimated ejection fraction is 55-60%. Wall motion is normal; there are no regional wall motion abnormalities. - Right ventricle: Systolic function is normal. - Mitral valve: There is mild to moderate regurgitation. - Aortic valve: There is no evidence of stenosis. There is trace regurgitation. - Tricuspid valve: There is trace regurgitation. - Pericardium, extracardiac: There is no significant pericardial effusion. - Pulmonary arteries: Systolic pressure can not be accurately estimated. - Compared to study of 09/14/15, there is little change. Assess/Plan/Problems-Billing Assessment: Ms. Lewis is an 88 yo F with PMH of dementia, HTN, HLD, DM2, and afib; who presented to the ED with back pain after a fall and was admitted for pain management and PT/OT evaluation, then found to have a sudden drop in BP and change in mental status today. - Patient Problems (1) Altered mental status Code(s): R41.82 - ALTERED MENTAL STATUS, UNSPECIFIED SNOMED Code(s): 344859352 Comment: - Diane Kumar called this AM - With accompanying hypotension and bradycardia - CT head negative for stroke - EKG with no changes, but troponin is elevated at 1.30 and 1.41, pending third - Dr. Ma following - ECHO as above, no changes from previous, no wall motion abnormalities, LV function adequate - Will continue to trend trops and discuss with cardiology in AM. Tried to contact HCP today to see if they want to pursue stress test given patient's advanced age and dementia - Creat continues to be above baseline (2) Fall Comment: - Unwitnessed fall 06/03/19 at [facility] - Will need ANKUSH per PT/OT evals (3) Compression fracture Code(s): PMI5242 - SNOMED Code(s): 545778562 Comment: - Currently back pain free - CT shows subacute to chronic L2 compression fracture - Continue Tramadol, Tylenol, PT (4) Rib fractures Code(s): S22.39XA - FRACTURE OF ONE RIB, UNSP SIDE, INIT FOR CLOS FX SNOMED Code(s): 51822019 Comment: - Right side, ribs 3-7 - Continue Tramadol, Tylenol, IS (5) Dementia Code(s): F03.90 - UNSPECIFIED DEMENTIA WITHOUT BEHAVIORAL DISTURBANCE SNOMED Code(s): 73704735 Comment: - Stable/at baseline - Continue Aricept (6) Hyperlipidemia Code(s): E78.5 - HYPERLIPIDEMIA, UNSPECIFIED SNOMED Code(s): 36843708 Comment: - Continue atorvastatin (7) Paroxysmal A-fib Code(s): I48.0 - PAROXYSMAL ATRIAL FIBRILLATION SNOMED Code(s): 326535612 Comment: - Not on anticoagulation - Continue metoprolol (8) DVT prophylaxis Current Visit: No Status: Acute Priority: Medium Code(s): NXM8680 - SNOMED Code(s): 615348586 Comment: - Heparin SQ (9) Type 2 diabetes mellitus Comment: - Hold glipizide - Continue Lispro SS (10) Hypertension Code(s): I10 - ESSENTIAL (PRIMARY) HYPERTENSION SNOMED Code(s): 91106622 Comment: - Monitor BP closely - Continue metoprolol, lisinopril, HCTZ (11) DNR (do not resuscitate) Comment: - New MOLST completed and placed in chart Status and Disposition: Inpatient. Pending placement at [facility] which was held today 2/2 acute changes. Plan will be to DC to [place] when stable.
[2019-06-11 19:11] LABS: Troponin I 1.31 ng/mL (<0.04)
[2019-06-11] MEDS ORDERED: hydrALAZINE IV* 20 MG/ML VIAL IV SLOW PU ONE (20:10)
[2019-06-11] MEDS ORDERED: Clopidogrel TAB* 300 MG PO ONE (20:35)
--- NOTE | 2019-06-11 20:42 | PN ---
Hospitalist Progress Note Date of Service: 06/11/19 Asked to report to bedside to update patient's daughter and healthcare proxy. She was unable to be reached during the day reportedly. To the best of my ability, I discussed the likelihood of an NSTEMI with the daughter and the low likelihood of CVA. The patient's daughter would prefer to avoid cardiac catheterization at this time, and therefore stress test would not be necessary. Daughter was agreeable to attempting heparin drip. Though because the patient has been known to pull out IVs, she also would be acceptable with other medical therapy to optimize the patient. Discussed with Dr. Dewey. He believes that because of the patient's fall risk and agitation, it would be more safe to pursue dual antiplatelet therapy for the patient. Cardiology will see the patient in the morning. Patient is already on statin, aspirin, and lisinopril. Started 300mg plavix today and will continue 75mg daily.
[2019-06-11] MEDS: Atorvastatin* 10 MG TAB PO SCH (21:00)
[2019-06-11] MEDS: Donepezil TAB* 5 MG PO SCH (21:00)
[2019-06-11] MEDS: Melatonin 3 MG TAB PO SCH (21:01)
[2019-06-12] MEDS ORDERED: hydrALAZINE IV* 20 MG/ML VIAL IV SLOW PU ONE (04:24)
[2019-06-12] MEDS: Acetaminophen TAB* 325 MG PO SCH ×3 (05:13→21:47)
[2019-06-12] MEDS: Levothyroxine TAB* 50 MCG TAB PO SCH (05:14)
[2019-06-12] MEDS: Heparin VIAL(*) 5000 UNITS/ML VIAL (FIVE THOUSAND) SUBCUT SCH ×3 (05:14→21:49)
[2019-06-12 05:47] LABS: ABS Basophils 0.1 10^3/ul (0-0.2); ABS Eosinophils 0.4 10^3/ul (0-0.6); ABS Lymphocytes 1.5 10^3/ul (1.0-4.8); ABS Monocytes 0.8 10^3/ul (0-0.8); Eosinophil % 4.4 %; Hematocrit 37 % (35-47); Hemoglobin 12.3 g/dL (12.0-16.0); Lymphocyte % 17.4 %; Mean Corpuscular HGB Conc 33 g/dL (31-36); Mean Corpuscular Hemoglobin 31 pg (27-31); Mean Corpuscular Volume 93 fL (80-97); Mean Platelet Volume 9.9 fL (7.4-10.4); Platelet Count 224 10^3/uL (150-450); Red Blood Count 3.99 10^6 /uL (3.70-4.87); Red Cell Distribution Width 14 % (10-15); White Blood Count 8.8 10^3/uL (3.5-10.8)
[2019-06-12 06:06] LABS: BUN/Creatinine Ratio 29.6 (8-20); Calcium 9.1 mg/dL (8.6-10.3); EGFR African American 65.1 (>60); EGFR Non-African American 53.8 (>60); Potassium 4.1 mmol/L (3.5-5.0)
[2019-06-12] MEDS: Hydrochlorothiazide TAB* 25 MG PO SCH (08:59)
[2019-06-12] MEDS: Clopidogrel TAB* 75 MG PO SCH (08:59)
[2019-06-12] MEDS: Aspirin EC TAB* 81 MG TAB.EC PO SCH (08:59)
[2019-06-12] MEDS: Lisinopril TAB* 10 MG PO SCH (09:00)
[2019-06-12] MEDS: Metoprolol Tartrate TAB* 25 MG PO SCH ×2 (09:01→21:49)
[2019-06-12] MEDS: Multivitamins/Minerals TAB PO SCH (09:02)
[2019-06-12] MEDS: Cholecalciferol TAB* 1000 UNITS PO SCH (09:02)
[2019-06-12] MEDS: Insulin LISPRO* 1 UNITS UNIT SUBCUT SCH ×4 (09:03→21:57)
[2019-06-12 11:50] LABS: Creatine Kinase 45 U/L (10-223)
[2019-06-12 11:52] LABS: Urine Appearance Cloudy; Urine Bilirubin Negative (Negative); Urine Blood Negative (Negative); Urine Color Yellow; Urine Glucose Negative (Negative); Urine Ketones Negative (Negative); Urine Nitrite Negative (Negative); Urine Protein Negative (Negative); Urine Specific Gravity 1.017 (1.010-1.030); Urine Urobilinogen Negative (Negative)
[2019-06-12 11:55] LABS: Creatine Kinase 46 U/L (10-223)
[2019-06-12 11:55] LABS: CKMB ng/mL 1.9 ng/mL (0.6-6.3); Creatine Kinase 45 U/L (10-223)
[2019-06-12 11:57] LABS: CKMB ng/mL 1.7 ng/mL (0.6-6.3)
[2019-06-12 11:57] LABS: CKMB ng/mL 1.7 ng/mL (0.6-6.3)
--- NOTE | 2019-06-12 12:51 | CONS ---
CONSULTATION REPORT: DATE OF CONSULT: 06/12/19 PRIMARY PHYSICIAN: Dr. Kelly Jesus. ATTENDING PHYSICIAN: Dr. Margarita Bowman, Cardiology.* (DICTATED BY ANUSHA HURTADO NP) HISTORY OF PRESENT ILLNESS: This is an 88-year-old female patient with advanced Alzheimer's in addition to hyperlipidemia, paroxysmal AFib, not on anticoagulation due to frequent falls and recurrent urinary tract infections, who presented to [facility] on 06/07/19 due to complaints of ongoing pain with recent fall. Apparently on 06/03/19, she fell. The emergency room did imaging, which showed moderate compression fracture of the L2 vertebral body. She was admitted to the hospital. Apparently, she was doing well and being prepared for discharge. Yesterday, she was working with physical therapy after a lunch when she apparently developed clamminess, confusion, pallor. She became hypotensive and bradycardic and in altered mental status, thus a code ta was called. According to clinical documentation at that time, blood pressure was 75/40, heart rate was 48. Dr. Lu evaluated the patient in consultation. According to his clinical documentation, this occurred while moving from standing position to a supine position. CT of head was completed. Symptomatology resolved after 30 minutes. I personally spoke to Dr. Lu, who do not feel that this episode was reflective of stroke like syndrome. Brain CT per report from 06/13/19 do not reveal an acute intracranial pathology. Labs were updated. Her BUN to creatinine ratio has been elevated. During this hospital stay, hydrochlorothiazide was increased from 12.5 mg a day to 25 mg a day. Her troponin was elevated at 1.3 and peaked at 1.41 at 3:27 p.m. yesterday. She denies chest pain, although because of her baseline mental status, it is difficult to assess history of present illness, much of this data was obtained with review of medical records and speaking with Dr. Lu and Altagracia Smiley, hospitalist nurse practitioner. The patient had an echocardiogram updated on 06/11/19 at 1:19 p.m. Per report, LVEF was 55% to 60% , wall motion was normal. There was no focal wall motion abnormalities. This morning's ECG did reveal inferior changes. She is currently asymptomatic and lying in bed at this time. There have been no further events of hypotension since yesterday. Last echocardiogram as mentioned before, 06/13/19 per report, LVEF 55% to 60%, no focal wall motion abnormalities, trace tricuspid insufficiency, trace aortic insufficiency. PAST MEDICAL HISTORY: Listed includes: 1. Thyroid nodule. 2. Hypothyroidism. 3. Dementia. 4. Hyperlipidemia. 5. Paroxysmal AFib, not on anticoagulation due to frequent falls. 6. Diabetes. 7. Urinary tract infections. MEDICATIONS: Home medications listed include: 1. Tylenol 650 mg p.o. q.4 h. p.r.n. 2. Lopressor 12.5 mg p.o. b.i.d. 3. Vitamin D 5000 units daily. 4. Simvastatin 10 mg a day. 5. Melatonin 3 mg a day. 6. Lisinopril 40 mg a day. 7. HCTZ 12.5 mg a day. 8. Levothyroxine 50 mcg every Monday, Monday, Monday, , Monday. ALLERGIES: No known drug allergies. FAMILY HISTORY: Noncontributory. SOCIAL HISTORY: The patient resides at [place]. Denies tobacco, alcohol, or drug use. Apparently, she does fall frequently. She is a DNR. REVIEW OF SYSTEMS: Unfortunately, I am unable to obtain accurate review of systems due to the patient's current mental status, which is reflective of her baseline. PHYSICAL EXAMINATION: Vital Signs: Temperature 98.3, pulse 61, respirations 18 , oxygenation 98% on 2 L nasal cannula, blood pressure 144/50. General: The patient is lying in bed, sleeping upon entering room, appears in no apparent distress, is cooperative, alert to self not place or time. HEENT: Head is atraumatic, normocephalic. Oral mucosa is moist. Tongue is midline. Neck: Supple. Trachea midline. No JVD. No carotid bruits. Diminished S1, S2. Regular rate and rhythm. No murmur, rub, or gallop noted. Lungs: Auscultated posteriorly. No evidence of adventitious breath sounds auscultated. /GI: Abdomen is obese, nontender. Normoactive bowel sounds x4. Extremities: No pedal edema. No clubbing, no cyanosis. Peripheral Vascular: 2+ brachial and dorsalis pedis pulse, palpated bilaterally and symmetrically. DIAGNOSTIC STUDIES/LAB DATA: Blood work reviewed from 06/12/19; sodium 137, potassium 4.1, chloride 101, carbon dioxide 27, BUN 29, creatinine 0.98, glucose 136. Troponin peaked at 1.41 on 06/11/19. Add on CK and CK-MB are pending. White count on 06/12/19 was 8.8, hemoglobin 12.3, hematocrit 37, platelets 224. INR 0.95. ECG obtained on 06/12/19; sinus rhythm, rate 68 with nonspecific inferior changes noted involving the ST segment. Brain CT on 06/11/19; per report, no acute intracranial pathology. ASSESSMENT AND PLAN: 1. Troponin elevation with non specific inferior ECG changes; the patient denies chest pain, this occurred in the setting of postprandial episode of symptomatic hypotension and bradycardia, which occurred with position change while working with physical therapy. Her BUN to creatinine ratio was elevated. She was given IV fluids. Renal function has improved. She does not appear to be volume contracted on physical exam. We will discontinue HCTZ therapy and up titrate Lopressor to 18.75 mg p.o. b.i.d. Will speak with Dr. Bowman about continuing aspirin 81 mg a day in combination of Plavix 75 mg a day due to history of falls. There is no focal wall motion abnormality noted on echo, LVEF was preserved. We will add on CK to troponin value. I was unable to speak to the patient's daughter; however, I did leave a message for her to call. I was hoping to address goals of care with her; however, according to medical records from [facility] on 06/11/19, goals of care were addressed and it was decided to continue conservative medical management and not pursue stress test or invasive procedures. Recommend continuing statin therapy and monitoring blood pressure closely. 2. Transient episode of symptomatic hypotension. I personally spoke to Dr. Lu who did not feel that this was related to stroke. He did raise the possibility of autonomic dysfunction, his suggestion was to stop HCTZ therapy, thus I took the liberty to do so and up titrate her beta-south therapy. We will need to monitor for bradycardia. Other option would be prescribing compression stockings. 3. History of hyperlipidemia. LDL goal less than 70, on statin therapy. 4. History of advanced Alzheimer's, defer to primary team. The patient is DNR. 5. History of paroxysmal atrial fibrillation, currently in sinus rhythm, not on anticoagulation due to recurrent falls. In fact, the patient presented with L2 compression fracture during this stay. 6. Disposition. Pending course. Dr. Margarita Bowman has personally seen and examined the patient and agrees with the above assessment and plan. ANUSHA HURTADO NP [id number]/CPS #: [id number] LALITA
--- NOTE | 2019-06-12 14:01 | HP ---
H&P (Free Text) History and Physical: Pt seen today by me personally. Consult note done by [employer] ENGINE[employer] Gloria Salamanca. Pt s/p fall, hypotensive and bradycardic by report, but can't corroborate based on vitals in the chart. MEatild bump in trops. Pt demented, could not provide hx of event. She denies c/o now. Vital Signs Vital Signs - On Arrival Temp Pulse Resp BP Pulse Ox 98.6 F 72 18 192/79 93 06/07/19 13:30 06/07/19 13:30 06/07/19 13:30 06/07/19 13:30 06/07/19 13:30 Vital Signs - Most Recent Temp Pulse Resp BP Pulse Ox 97.6 F 62 20 131/53 98 06/12/19 11:25 06/12/19 11:25 06/12/19 11:25 06/12/19 11:25 06/12/19 11:25 06/12/19 06/12/19 08:18 11:25 Temperature 97.4 F 97.6 F Pulse Rate 73 62 Respiratory 18 20 Rate Blood Pressure 151/58 131/53 (mmHg) O2 Sat by Pulse 100 98 Oximetry Eating lunch Clear lungs S1S2 no murmurs. Obese. 06/09/19 06/09/19 06/10/19 16:36 21:17 07:54 WBC RBC Hgb Hct MCV MCH MCHC RDW Plt Count MPV Neut % (Auto) Lymph % (Auto) [place] % (Auto) Eos % (Auto) Baso % (Auto) Absolute Neuts (auto) Absolute Lymphs (auto) Absolute Monos (auto) Absolute Eos (auto) Absolute Basos (auto) Absolute Nucleated RBC Nucleated RBC % INR (Anticoag Therapy) Sodium Potassium Chloride Carbon Dioxide Anion Gap BUN Creatinine Est GFR ( Amer) Est GFR (Non-Af Amer) BUN/Creatinine Ratio Glucose POC Glucose (mg/dL) 198 H 114 H 150 H Calcium Magnesium Total Bilirubin AST ALT Alkaline Phosphatase Total Creatine Kinase CK-MB (CK-2) Troponin I Total Protein Albumin Globulin Albumin/Globulin Ratio Urine Color Urine Appearance Urine pH Ur Specific Exira Urine Protein Urine Ketones Urine Blood Urine Nitrate Urine Bilirubin Urine Urobilinogen Ur Leukocyte Esterase Urine Glucose 06/10/19 06/10/19 06/10/19 11:19 16:36 21:53 WBC RBC Hgb Hct MCV MCH MCHC RDW Plt Count MPV Neut % (Auto) Lymph % (Auto) [place] % (Auto) Eos % (Auto) Baso % (Auto) Absolute Neuts (auto) Absolute Lymphs (auto) Absolute Monos (auto) Absolute Eos (auto) Absolute Basos (auto) Absolute Nucleated RBC Nucleated RBC % INR (Anticoag Therapy) Sodium Potassium Chloride Carbon Dioxide Anion Gap BUN Creatinine Est GFR ( Amer) Est GFR (Non-Af Amer) BUN/Creatinine Ratio Glucose POC Glucose (mg/dL) 199 H 117 H 125 H Calcium Magnesium Total Bilirubin AST ALT Alkaline Phosphatase Total Creatine Kinase CK-MB (CK-2) Troponin I Total Protein Albumin Globulin Albumin/Globulin Ratio Urine Color Urine Appearance Urine pH Ur Specific [place]ira Urine Protein Urine Ketones Urine Blood Urine Nitrate Urine Bilirubin Urine Urobilinogen Ur Leukocyte Esterase Urine Glucose 06/11/19 06/11/19 06/11/19 08:26 09:48 11:52 WBC RBC Hgb Hct MCV MCH MCHC RDW Plt Count MPV Neut % (Auto) Lymph % (Auto) [place] % (Auto) Eos % (Auto) Baso % (Auto) Absolute Neuts (auto) Absolute Lymphs (auto) Absolute Monos (auto) Absolute Eos (auto) Absolute Basos (auto) Absolute Nucleated RBC Nucleated RBC % INR (Anticoag Therapy) Sodium Potassium Chloride Carbon Dioxide Anion Gap BUN Creatinine Est GFR ( Amer) Est GFR (Non-Af Amer) BUN/Creatinine Ratio Glucose POC Glucose (mg/dL) 144 H 244 H 234 H Calcium Magnesium Total Bilirubin AST ALT Alkaline Phosphatase Total Creatine Kinase CK-MB (CK-2) Troponin I Total Protein Albumin Globulin Albumin/Globulin Ratio Urine Color Urine Appearance Urine pH Ur Specific Exira Urine Protein Urine Ketones Urine Blood Urine Nitrate Urine Bilirubin Urine Urobilinogen Ur Leukocyte Esterase Urine Glucose 06/11/19 06/11/19 06/11/19 11:55 11:55 11:55 WBC 8.7 RBC 3.96 Hgb 12.3 Hct 37 MCV 93 MCH 31 MCHC 33 RDW 14 Plt Count 220 MPV 9.8 Neut % (Auto) 83.0 Lymph % (Auto) 9.5 [place] % (Auto) 4.8 Eos % (Auto) 2.2 Baso % (Auto) 0.5 Absolute Neuts (auto) 7.2 Absolute Lymphs (auto) 0.8 L Absolute Monos (auto) 0.4 Absolute Eos (auto) 0.2 Absolute Basos (auto) 0.0 Absolute Nucleated RBC 0.0 Nucleated RBC % 0.1 INR (Anticoag Therapy) 0.95 Sodium 135 Potassium 4.5 Chloride 100 L Carbon Dioxide 29 Anion Gap 6 BUN 32 H Creatinine 1.25 H Est GFR ( Amer) 49.2 Est GFR (Non-Af Amer) 40.6 BUN/Creatinine Ratio 25.6 H Glucose 254 H POC Glucose (mg/dL) Calcium 8.9 Magnesium 2.4 Total Bilirubin 0.30 AST 46 H ALT 77 H Alkaline Phosphatase 126 H Total Creatine Kinase 45 CK-MB (CK-2) 1.9 Troponin I 1.30 H* Total Protein 6.1 L Albumin 3.5 Globulin 2.6 Albumin/Globulin Ratio 1.3 Urine Color Urine Appearance Urine pH Ur Specific Exira Urine Protein Urine Ketones Urine Blood Urine Nitrate Urine Bilirubin Urine Urobilinogen Ur Leukocyte Esterase Urine Glucose 06/11/19 06/11/19 06/11/19 15:27 16:03 18:19 WBC RBC Hgb Hct MCV MCH MCHC RDW Plt Count MPV Neut % (Auto) Lymph % (Auto) [place] % (Auto) Eos % (Auto) Baso % (Auto) Absolute Neuts (auto) Absolute Lymphs (auto) Absolute Monos (auto) Absolute Eos (auto) Absolute Basos (auto) Absolute Nucleated RBC Nucleated RBC % INR (Anticoag Therapy) Sodium Potassium Chloride Carbon Dioxide Anion Gap BUN Creatinine Est GFR ( Amer) Est GFR (Non-Af Amer) BUN/Creatinine Ratio Glucose POC Glucose (mg/dL) 121 H Calcium Magnesium Total Bilirubin AST ALT Alkaline Phosphatase Total Creatine Kinase 45 46 CK-MB (CK-2) 1.7 1.7 Troponin I 1.41 H* 1.31 H* Total Protein Albumin Globulin Albumin/Globulin Ratio Urine Color Urine Appearance Urine pH Ur Specific Exira Urine Protein Urine Ketones Urine Blood Urine Nitrate Urine Bilirubin Urine Urobilinogen Ur Leukocyte Esterase Urine Glucose 06/11/19 06/12/19 06/12/19 21:12 05:26 05:26 WBC 8.8 RBC 3.99 Hgb 12.3 Hct 37 MCV 93 MCH 31 MCHC 33 RDW 14 Plt Count 224 MPV 9.9 Neut % (Auto) 68.6 Lymph % (Auto) 17.4 [place] % (Auto) 8.9 Eos % (Auto) 4.4 Baso % (Auto) 0.7 Absolute Neuts (auto) 6.0 Absolute Lymphs (auto) 1.5 Absolute Monos (auto) 0.8 Absolute Eos (auto) 0.4 Absolute Basos (auto) 0.1 Absolute Nucleated RBC 0.0 Nucleated RBC % 0.0 INR (Anticoag Therapy) Sodium 137 Potassium 4.1 Chloride 101 Carbon Dioxide 27 Anion Gap 9 BUN 29 H Creatinine 0.98 H Est GFR ( Amer) 65.1 Est GFR (Non-Af Amer) 53.8 BUN/Creatinine Ratio 29.6 H Glucose 136 H POC Glucose (mg/dL) 141 H Calcium 9.1 Magnesium Total Bilirubin AST ALT Alkaline Phosphatase Total Creatine Kinase CK-MB (CK-2) Troponin I Total Protein Albumin Globulin Albumin/Globulin Ratio Urine Color Urine Appearance Urine pH Ur Specific [place]ira Urine Protein Urine Ketones Urine Blood Urine Nitrate Urine Bilirubin Urine Urobilinogen Ur Leukocyte Esterase Urine Glucose 06/12/19 06/12/19 06/12/19 07:31 11:13 11:35 WBC RBC Hgb Hct MCV MCH MCHC RDW Plt Count MPV Neut % (Auto) Lymph % (Auto) [place] % (Auto) Eos % (Auto) Baso % (Auto) Absolute Neuts (auto) Absolute Lymphs (auto) Absolute Monos (auto) Absolute Eos (auto) Absolute Basos (auto) Absolute Nucleated RBC Nucleated RBC % INR (Anticoag Therapy) Sodium Potassium Chloride Carbon Dioxide Anion Gap BUN Creatinine Est GFR ( Amer) Est GFR (Non-Af Amer) BUN/Creatinine Ratio Glucose POC Glucose (mg/dL) 145 H 214 H Calcium Magnesium Total Bilirubin AST ALT Alkaline Phosphatase Total Creatine Kinase CK-MB (CK-2) Troponin I Total Protein Albumin Globulin Albumin/Globulin Ratio Urine Color Yellow Urine Appearance Cloudy Urine pH 6.0 Ur Specific Exira 1.017 Urine Protein Negative Urine Ketones Negative Urine Blood Negative Urine Nitrate Negative Urine Bilirubin Negative Urine Urobilinogen Negative Ur Leukocyte Esterase Negative Urine Glucose Negative *[facility]* Transthoracic Echocardiogram Patient: Norma Tatum : 1930 Study Date: 06/11/2019 *Reading Physician: * Balta Hirsch MD Indications: Elevated Troponins. History: Dementia. Atrial fibrillation. Risk factors: Hypertension. Diabetes mellitus. Dyslipidemia. Conclusions Summary: - Left ventricle: There is mild to moderate concentric hypertrophy. Systolic function is normal. The estimated ejection fraction is 55-60%. Wall motion is normal; there are no regional wall motion abnormalities. - Right ventricle: Systolic function is normal. - Mitral valve: There is mild to moderate regurgitation. - Aortic valve: There is no evidence of stenosis. There is trace regurgitation. - Tricuspid valve: There is trace regurgitation. - Pericardium, extracardiac: There is no significant pericardial effusion. - Pulmonary arteries: Systolic pressure can not be accurately estimated. - A/p Pt with fall of uncertain etiology, possible orthstatic drop in BP (reports of SBP 70 HR 40). HCTZ has been stopped and metoprolol increased. Hx PAF-not on OAC due to falling. Now being started on Plavix. I think we should coordinate anticoagulation with primary as Plavix puts her at bleeding risk as well, may make more sense to put on OAC. Consider EM if a pacer would ever be considered. PAF + SSS can lead to syncope w/conversion.
--- NOTE | 2019-06-12 17:00 | PN ---
Subjective Date of Service: 06/12/19 Length of Stay: 5 Days Neurology is following for the episode of transient loss of awareness that took place yesterday 06/11/2019 in the setting of hypotension. Interval History: I called the patient's daughter, Rohini Michael, multiple times but there was no response. The patient is doing well today. She is very pleasant and aminta. She recognized me and commented on my attire. She denied any headache or visual disturbance. She denied any focal weakness or paresthesia. She does not recall the events from yesterday. Reviewed Dr. Bowman and Gloria's consult note and recommendations. Review of Systems: Denied CP, SOB, or palpitations. Family History: Unchanged from Admission Social History: Unchanged from Admission Past Medical History: Unchanged from Admission Objective Active Medications: Acetaminophen (Tylenol Tab*) 975 mg PO Q8H [facility] Last Admin: 06/12/19 14:18 Dose: 975 mg Aspirin (Aspirin Ec Tab*) 81 mg PO DAILY [facility] Last Admin: 06/12/19 08:59 Dose: 81 mg Atorvastatin Calcium (Lipitor*) 5 mg PO BEDTIME [facility] Last Admin: 06/11/19 21:00 Dose: 5 mg Cholecalciferol (Vitamin D Tab*) 5,000 units PO DAILY [facility] Last Admin: 06/12/19 09:02 Dose: 5,000 units Clopidogrel Bisulfate (Plavix Tab*) 75 mg PO DAILY [facility] Last Admin: 06/12/19 08:59 Dose: 75 mg Dextrose (Dextrose 50% Vial 50 Ml*) 25 ml IV PUSH .FOR FS < 60 - SS PRN PRN Reason: FS < 60 Docusate Sodium (Colace Cap*) 100 mg PO BID PRN PRN Reason: CONSTIPATION Donepezil HCl (Aricept Tab*) 5 mg PO BEDTIME [facility] Last Admin: 06/11/19 21:00 Dose: 5 mg Heparin Sodium (Porcine) (Heparin Vial(*)) 5,000 units SUBCUT Q8HR [facility] Last Admin: 06/12/19 14:18 Dose: 5,000 units Insulin Human Lispro (Humalog*) 0 units SUBCUT ACHS [facility]; Protocol Last Admin: 06/12/19 16:22 Dose: 3 units Levothyroxine Sodium (Synthroid Tab*) 50 mcg PO [id number]@[id number] [facility] Last Admin: 06/12/19 05:14 Dose: 50 mcg Lisinopril (Prinivil Tab*) 40 mg PO DAILY [facility] Last Admin: 06/12/19 09:00 Dose: 40 mg Magnesium Hydroxide (Milk Of Magnzahraa Liq*) 30 ml PO Q6H PRN PRN Reason: CONSTIPATION Last Admin: 06/10/19 14:25 Dose: 30 ml Melatonin (Melatonin) 3 mg PO BEDTIME [facility] Last Admin: 06/11/19 21:01 Dose: 3 mg Metoprolol Tartrate (Lopressor Tab*) 18.75 mg PO Q12HR [facility] Multivitamins/Minerals (Theragran/Minerals Tab*) 1 tab PO DAILY [facility] Last Admin: 06/12/19 09:02 Dose: 1 tab Ondansetron HCl (Zofran Inj*) 4 mg IV Q6H PRN PRN Reason: NAUSEA/VOMITING Tramadol HCl (Ultram*) 50 mg PO Q6H PRN PRN Reason: PAIN - MODERATE Vital Signs 06/12/19 06/12/19 06/12/19 07:46 08:18 11:25 Temperature 97.4 F 97.6 F Pulse Rate 73 62 Respiratory 16 18 20 Rate Blood Pressure 151/58 131/53 (mmHg) O2 Sat by Pulse 100 98 Oximetry 06/12/19 15:15 Temperature 98.2 F Pulse Rate 66 Respiratory 18 Rate Blood Pressure 128/51 (mmHg) O2 Sat by Pulse 96 Oximetry Intake and Output Last 24 Hours 06/10/19 06/11/19 06/12/19 06/13/19 06:59 06:59 06:59 06:59 Intake Total 2550 066 63 5452 Output Total 0 Balance 2550 169 09 2795 Weight 205 lb Intake: Oral 2550 169 34 8119 Output: Urine 0 Other: Estimated Void Large Large Large Date of Last Bowel unknown Movement # Bowel Movements 0 0 1 Estimated Stool Amount Small # Voids 1 1 1 Oxygen Devices in Use Now: Nasal Cannula Neurology Exam: General: Chronically ill appearing female in no distress. Resting in bed comfortably. Pleasantly demented. HEENT: Normocephelic/atraumatic, sclera anicteric, mucous membranes moist Neck: Supple Extremities: No clubbing, cyanosis, or edema Neurological Findings: Awake, alert to self and recognized her daughter's name. She has advanced dementia. Speech: fluent without dysarthria, repetition intact Cranial Nerve: PERRL, EOM intact, VFF, no nystagmus, no facial asymmetry. Motor: able to elevated all 4 extremities to command and against gravity. There is no asymmetry on her examination. Sensation: intact to LT/PP bilaterally upper and lower extremities Deep Tendon Reflex: trace throughout Finger to nose is symmetric bilaterally. Gait: not assessed Result Diagrams: 06/12/19 05:26 06/12/19 05:26 Microbiology and Other Data: Microbiology 06/07/19 20:00 Nasal Screen MRSA (PCR) - Final Nasal Mrsa Not Detected Diagnostic Imaging: Patient Name: NORMA LEWIS Medical Record#: [id number] Ordering Physician: Janelle HAN Acct.#: [id number] : 1930 Age: 88 Sex: F Location: [address] [place] [address] MEDICAL Exam Date: 06/11/19 1012 ADM Status: ADM IN Order Information: CT BRAIN WO Accession Number: [id number] CPT: 24631 HISTORY: CVA COMPARISONS: May 03, 2017 TECHNIQUE: Multiple contiguous axial CT scans were obtained of the head without intravenous contrast. FINDINGS: HEMORRHAGE/INFARCT: There is no hemorrhage or acute infarct. MASSES/SHIFT: There is no mass or shift. EXTRA-AXIAL SPACES: There are no extra-axial fluid collections. SULCI AND VENTRICLES: There is diffuse and proportional enlargement of the sulci and ventricles. CEREBRUM: There is extensive hypoattenuation of the periventricular and subcortical white matter. BRAINSTEM: There are no focal parenchymal abnormalities. CEREBELLUM: There are no focal parenchymal abnormalities. VESSELS: There is calcification of the cavernous segments of the internal carotid arteries bilaterally and of the distal vertebral arteries bilaterally. PARANASAL SINUSES: The paranasal sinuses are clear. ORBITS: The orbits are unremarkable. BONES AND SOFT TISSUE: No bone or soft tissue abnormalities are noted. OTHER: None IMPRESSION: NO ACUTE INTRACRANIAL PATHOLOGY. DIFFUSE INVOLUTIONAL CHANGE WITH CHRONIC SMALL VESSEL ISCHEMIC CHANGES. PRELIMINARY FINDINGS WERE DISCUSSED WITH DR. MA FROM NEUROLOGY AT APPROXIMATELY 10:34 AM ON 2018. *[facility]* [place] [address] Fax #: [phone] Transthoracic Echocardiogram Patient: Norma Lewis : 1930 Study Date: 06/11/2019 Age: 88 Gender: F HR: Height: 64 in /162.6 cm BSA: 1.98 m^2 Weight: 204.6 lb /93 kg BMI: 35.2 kg/m^2 *Parasitologist: * Angelina Velazquez [facility] *Referring Physician: * Altagracia Smiley *Reading Physician: * Balta Hirsch MD Indications: Elevated Troponins. History: Dementia. Atrial fibrillation. Risk factors: Hypertension. Diabetes mellitus. Dyslipidemia. Conclusions Summary: - Left ventricle: There is mild to moderate concentric hypertrophy. Systolic function is normal. The estimated ejection fraction is 55-60%. Wall motion is normal; there are no regional wall motion abnormalities. - Right ventricle: Systolic function is normal. - Mitral valve: There is mild to moderate regurgitation. - Aortic valve: There is no evidence of stenosis. There is trace regurgitation. - Tricuspid valve: There is trace regurgitation. - Pericardium, extracardiac: There is no significant pericardial effusion. - Pulmonary arteries: Systolic pressure can not be accurately estimated. - Compared to study of 09/14/15, there is little change. Assessment/Plan Mrs. Norma Lewis is a pleasantly demented female who has frequent falls and had a transient episode of sudden loss of awareness and confusion. Clinically she was described as pale appearing, unresponsive and diaphoretic. The event took place after having a meal and participating with physical therapy. This event was associated with hypotension, EKG changes, and elevation in troponins. She recovered fairly quickly after IV fluids and placing her in a supine position. Today, she has no lateralizing neurological deficits. Overall, I suspect the patient had a syncope/near syncope event yesterday correlating with the drop in BP. It's unclear if she could have had a cardiac event. Our cardiology team are on the case. She recovered well from the neurological standpoint. She has baseline advanced dementia. There is no evidence of a focal neurological deficit on examination. From the neurology standpoint, I don't recommend any further work-up. I agree with anticoagulation therapy if she is going to be residing back in a [facility] facility where she is assisted when ambulating. There is no contraindication for using oral anticoagulants from the neurology standpoint. I don't recommend DAPT + anticoagulation therapy though as this would significantly increase her hemorrhage risk. Compressive stockings, reducing/discontinuing HCTZ, and controlling her supine hypertension are recommended. I will intermittently follow.
[2019-06-12] MEDS: Atorvastatin* 10 MG TAB PO SCH (21:48)
[2019-06-12] MEDS: Donepezil TAB* 5 MG PO SCH (21:48)
[2019-06-12] MEDS: Melatonin 3 MG TAB PO SCH (21:48)
[2019-06-13] MEDS: Heparin VIAL(*) 5000 UNITS/ML VIAL (FIVE THOUSAND) SUBCUT SCH (05:28)
[2019-06-13] MEDS: Acetaminophen TAB* 325 MG PO SCH (05:29)
[2019-06-13] MEDS: Levothyroxine TAB* 50 MCG TAB PO SCH (05:30)
[2019-06-13] MEDS: Magnesium Hydroxide LIQ* 30 ML UDC PO PRN (09:07)
[2019-06-13] MEDS: Insulin LISPRO* 1 UNITS UNIT SUBCUT SCH ×2 (09:08→12:41)
[2019-06-13] MEDS: Metoprolol Tartrate TAB* 25 MG PO SCH (09:10)
[2019-06-13] MEDS: Lisinopril TAB* 10 MG PO SCH (09:10)
[2019-06-13] MEDS: Aspirin EC TAB* 81 MG TAB.EC PO SCH (09:11)
[2019-06-13] MEDS: Clopidogrel TAB* 75 MG PO SCH (09:11)
[2019-06-13] MEDS: Cholecalciferol TAB* 1000 UNITS PO SCH (09:12)
[2019-06-13] MEDS: Multivitamins/Minerals TAB PO SCH (09:12)
[2019-06-13 12:22] VITALS: BP 135/61
--- NOTE | 2019-06-13 12:53 | PN ---
Subjective Date of Service: 06/13/19 Interval History: f/u syncope, type 2 mi patient with dementia unable to provide a history no current chest pain or dyspnea Medications Active Medications: Acetaminophen (Tylenol Tab*) 975 mg PO Q8H [facility] Last Admin: 06/13/19 05:29 Dose: 975 mg Aspirin (Aspirin Ec Tab*) 81 mg PO DAILY [facility] Last Admin: 06/13/19 09:11 Dose: 81 mg Atorvastatin Calcium (Lipitor*) 5 mg PO BEDTIME [facility] Last Admin: 06/12/19 21:48 Dose: 5 mg Cholecalciferol (Vitamin D Tab*) 5,000 units PO DAILY [facility] Last Admin: 06/13/19 09:12 Dose: 5,000 units Clopidogrel Bisulfate (Plavix Tab*) 75 mg PO DAILY [facility] Last Admin: 06/13/19 09:11 Dose: 75 mg Dextrose (Dextrose 50% Vial 50 Ml*) 25 ml IV PUSH .FOR FS < 60 - SS PRN PRN Reason: FS < 60 Docusate Sodium (Colace Cap*) 100 mg PO BID PRN PRN Reason: CONSTIPATION Last Admin: 06/13/19 09:11 Dose: 100 mg Donepezil HCl (Aricept Tab*) 5 mg PO BEDTIME [facility] Last Admin: 06/12/19 21:48 Dose: 5 mg Heparin Sodium (Porcine) (Heparin Vial(*)) 5,000 units SUBCUT Q8HR [facility] Last Admin: 06/13/19 05:28 Dose: 5,000 units Insulin Human Lispro (Humalog*) 0 units SUBCUT [facility]; Protocol Last Admin: 06/13/19 12:41 Dose: 3 units Levothyroxine Sodium (Synthroid Tab*) 50 mcg PO [id number]@0600 [facility] Last Admin: 06/13/19 05:30 Dose: 50 mcg Lisinopril (Prinivil Tab*) 40 mg PO DAILY [facility] Last Admin: 06/13/19 09:10 Dose: 40 mg Magnesium Hydroxide (Milk Of Magnesia Liq*) 30 ml PO Q6H PRN PRN Reason: CONSTIPATION Last Admin: 06/13/19 09:07 Dose: 30 ml Melatonin (Melatonin) 3 mg PO BEDTIME [facility] Last Admin: 06/12/19 21:48 Dose: 3 mg Metoprolol Tartrate (Lopressor Tab*) 18.75 mg PO Q12HR [facility] Last Admin: 06/13/19 09:10 Dose: 18.75 mg Multivitamins/Minerals (Theragran/Minerals Tab*) 1 tab PO DAILY [facility] Last Admin: 06/13/19 09:12 Dose: 1 tab Ondansetron HCl (Zofran Inj*) 4 mg IV Q6H PRN PRN Reason: NAUSEA/VOMITING Tramadol HCl (Ultram*) 50 mg PO Q6H PRN PRN Reason: PAIN - MODERATE Objective Vital Signs: Temp Pulse Resp BP Pulse Ox 97.6 F 58 20 135/61 94 06/13/19 11:15 06/13/19 11:15 06/13/19 11:15 06/13/19 11:15 06/13/19 11:15 Oxygen Devices in Use Now: Nasal Cannula Appearance: elderly, pleasant Neck: Trachea Midline Respiratory: Symmetrical Chest Expansion and Respiratory Effort Cardiovascular: RRR Abdominal: NL Sounds; No Tenderness; No Distention Skin: No Rash or Ulcers Laboratory Results: 06/12/19 05:26 06/12/19 05:26 INR (Anticoag Therapy) 0.95 (0.82-1.09) 06/11/19 11:55 Total Bilirubin 0.30 mg/dL (0.2-1.0) 06/11/19 11:55 AST 46 U/L (13-39) H 06/11/19 11:55 ALT 77 U/L (7-52) H 06/11/19 11:55 Alkaline Phosphatase 126 U/L (34-104) H 06/11/19 11:55 CK-MB (CK-2) 1.7 ng/mL (0.6-6.3) 06/11/19 18:19 B-Natriuretic Peptide 139 pg/mL (<=100) H 06/07/19 14:41 Total Protein 6.1 g/dL (6.4-8.9) L 06/11/19 11:55 Albumin 3.5 g/dL (3.2-5.2) 06/11/19 11:55 Globulin 2.6 g/dL (2-4) 06/11/19 11:55 Albumin/Globulin Ratio 1.3 (1-3) 06/11/19 11:55 06/11/19 06/11/19 06/11/19 11:55 15:27 18:19 Troponin I 1.30 H* 1.41 H* 1.31 H* EKG Data: ekg admission: SB 60 bpm, LVH, inferior T wave changes new from 06/2016 ekg 06/12/2019: LVH, ST depression consider lvh repolarization at higher HR vs. ischemic chagnes egk 08/2015: Afib 125 bpm Assessment/Plan 1. Elevated troponin - suspect type 2 AL, dementia and limitations of history taking reduce diagnostic confidence 2. Likely vasovagal/orthostatic episode 3. Advanced dementia 4. PAfib - not on AC Discussed with Altagracia Smiley NP and there are family concerns with dapt/oac so will use aspirin alone and d/c plavix (ordered) Bradycardia given age and Afib diagnosis may in part be pathologic would have a low threshold to reduce beta-south dose if episodes recur Given age and comorbidities I think SBP goal up to 160 mmhg would be reasonable to try to prevent future episodes.
--- NOTE | 2019-06-13 13:39 | DS ---
CC: (All above providers) CONTINUATION OF DISCHARGE SUMMARY DATE OF ADMISSION: 06/07/2019. DATE OF DISCHARGE: 06/13/2019. DISPOSITION: Discharged in stable condition to [facility]. TIME SPENT: Forty-five minutes on discharge planning. GERHARD RAO NP [id number]/CPS #: [id number]
--- NOTE | 2019-06-13 14:14 | DS ---
CC: Dr. Kelly Jesus; Dr. Erich Lu; Dr. Juan M Mendez * DISCHARGE SUMMARY: DATE OF ADMISSION: 06/07/19 DATE OF DISCHARGE: 06/13/19 PRIMARY CARE PROVIDER: Dr. Kelly Jesus. ATTENDING PHYSICIAN: Dr. Zofia Lopez.* (DICTATED BY GERHARD RAO NP ) HOSPITAL COURSE: Please refer to admitting H and P on 06/07/19; but, in short, Ms. Tatum is an 88-year-old female who resides at [facility] in the [facility] unit who was brought to the ED after sustaining a fall on 06/03/19. The fall was unwitnessed. She was not having any complaints immediately thereafter ; however, she did start to complain of some pain over the course of the next couple of days. She was brought to the emergency department for evaluation. X- ray imaging revealed some multiple rib fractures on the third, fourth, fifth, sixth, and seventh ribs. Also, x-ray of the shoulder showed some severe osteoarthritis and osteopenia. Lumbar spine x-rays did show some compression fractures. Followup CT scan was ordered to further quantify the compression fracture in the L2 vertebrae which appeared to be subacute to chronic. There was also severe lumbar spondylosis and also noted right pleural effusion. The patient was admitted for Physical Therapy evaluation and for pain control. Also given her history of Alzheimer's dementia and hypertension, it was generally thought that the patient would benefit from a short hospitalization for stabilization, medication management and physical therapy. The patient was progressing well. She was hypertensive. Her medications were initially adjusted. Her hydrochlorothiazide was modestly increased. She was also placed on hydralazine temporarily for her increased pressure. The rest of her home medications were continued. She did appear to be somewhat dehydrated. She had a slight bump in her renal function. She received IV fluids. Her kidney function did start to trend down. It was still above 1 but did start to normalize. The patient initially was having difficulty participating with physical therapy just because she has difficulty following commands sometimes; however, PT did determine that she would benefit from short- term rehab. On the day that she was initially supposed to be discharged to [facility] for physical therapy, the patient had an episode of hypotension. She had been standing up and participating with PT and then standing with her walker and then when she was placed back in her bed, her blood pressure was noted to be approximately 76/40. She became very pale, appeared to have a left-sided facial droop and some drool on the outside corner of her mouth. A code ta was called to rule out a CVA. She was seen by Dr. Lu. It should also be noted she was bradycardic at this time in the 40s when her rate has been in the 80s for the past several days. CT scan was performed of the brain which did not show any acute intracranial abnormalities. Her NIH scale at that time was 1 ; however, laboratories that were drawn at that time did reveal an elevated troponin with a value of 1.30. Repeat troponin was 1.41 and her final reading was 1.31. The patient does not have any previous reported history of coronary artery disease. We did consult with Cardiology regarding the elevated troponins and echocardiogram was performed. Her echo did not show any acute changes from her echo in 2015. There were no wall motion abnormalities and her LV function was adequate as were her valves. I did have a conversation with the patient's family regarding stress test and catheterization. The patient's family, her daughter Rohini Michael who is her healthcare proxy expressed her wish for conservative medical management only. She did not wish to pursue stress test or cardiac catheterization. The patient also was, because of her dementia having trouble keeping an IV line. We decided not to pursue heparin drip because of her outburst behavior with trying to maintain an IV line. It should be noted that the patient is usually very calm and cooperative and very pleasant ; however, trying to maintain an IV on her during this acute period was a bit difficult. Also trying to place her on therapeutic Lovenox would be difficult because of her slightly elevated kidney function. After all consultants had seen the patient, it was determined that conservative medical management would be the best course of action. She did receive a loading dose of Plavix; however , given her history of falls and high risk for bleeding, it was determined that placing the patient on Plavix or any other anticoagulation would not be in her best interest. The family was agreeable to sending the patient out on aspirin only knowing that this would be suboptimal treatment and that it would not be the best prevention for any future cardiac events or neurologic events, but her daughter Rohini Michael is okay with this plan and as such, the patient will be sent out on aspirin only. On the morning of 06/13/19, the patient has been medically stable for the last 48 hours. She has had no deviations in her vital signs. She has essentially been stable with no further changes in her status, and she is medically stable for discharge to [facility] today. DISCHARGE DIAGNOSES: 1. Fall. 2. Acute rib fractures 3 through 7. 3. Subacute and chronic compression fractures of lumbar vertebrae. 4. Non-ST elevation myocardial infarction. 5. Acute kidney injury. SECONDARY DIAGNOSES: 1. Dementia. 2. Hyperlipidemia. 3. History of paroxysmal atrial fibrillation. 4. Hypertension. 5. Diabetes mellitus type 2. MEDICATIONS FOR DISCHARGE: Include: 1. Tylenol 650 mg p.o. q.4 h. as needed for pain. 2. Vitamin D 5000 units p.o. daily. 3. Zocor 10 mg at bedtime. 4. Melatonin 3 mg at bedtime. 5. Levothyroxine 50 mcg Monday, Monday, Monday, , Monday. 6. Glipizide 2.5 mg p.o. daily. 7. Donepezil 5 mg p.o. at bedtime. 8. Multivitamin 1 tab p.o. daily. 9. Aspirin 81 mg p.o. daily. 10. Metoprolol tartrate 18.75 mg p.o. q.12 hours. 11. Milk of magnesia 30 mL p.o. q.6 hours as needed. 12. Docusate 100 mg p.o. b.i.d. p.r.n. Discontinued medications: 1. Lisinopril 40 mg daily. 2. Metoprolol represents a dose change. REVIEW OF SYSTEMS ON DAY OF DISCHARGE: The patient is an unreliable historian; however, she is not complaining of any overt pain or shortness of breath. No abdominal pain. No nausea, no vomiting. No further constitutional complaints. PHYSICAL EXAM: The patient is awake and alert, in no acute distress. Vital signs are blood pressure 135/61, heart rate 58, respiratory rate 20, O2 saturation 94% on room air with the temperature of 97.6. HEENT: The patient is atraumatic, normocephalic. PERRLA. Nonicteric sclerae. Oral mucosa is moist. Tongue is midline. Dentition is poor. Neck is supple, nontender. No JVD noted and no carotid bruits auscultated. Cardiovascular: S1 and S2 present. Rate and rhythm are regular to bradycardic. No murmurs, gallops, or rubs noted. Lungs are clear bilaterally to auscultation with no wheezing, rhonchi, or rales. Abdomen is soft, nontender, and nondistended. Moderately obese. Positive bowel sounds in all 4 quadrants. deferred. Musculoskeletal : There is no clubbing, no cyanosis, no edema. She has +2 distal pulses palpable. She does have tenderness to palpation in the right shoulder and into the right AC joint to palpation, but otherwise, no further pain noted. She is ambulatory with a walker and assistance. Neurologic: She is confused at baseline, can be redirected and can make her needs known. She is alert to person only. LABORATORY DATA: WBCs 8.8, RBCs 3.99, hemoglobin 12.3, hematocrit 37, platelets 224,000. Sodium 137, potassium 4.1, chloride 101, CO2 of 27, BUN 29, creatinine 0.98, GFR 53.8, glucose 136. Calcium 9.1. Troponins 1.30, 1.41, and 1.31. IMAGING: Spine x-rays as noted in the body of this document above. CT of the brain on 06/11/19 showed no acute intracranial pathology, diffuse involutional changes with chronic small vessel ischemic disease. Transthoracic echocardiogram dated 06/11/19 showed estimated EF of 55% to 60%. Mild to moderate concentric hypertrophy. Systolic function normal. Wall motion is normal. There are no regional wall motion abnormalities. RV systolic function is normal. Mitral valve, there is mild to moderate regurgitation. Aortic valve, no evidence of stenosis. There is trace regurgitation. Tricuspid valve, there is trace regurg. Pericardium shows no pericardial effusion. Pulmonary artery systolic pressure cannot be accurately estimated. Compared to study of 09/14/15, there was little change. EKGs - EKG on 06/11/19 immediately during her initial event of hypotension shows regular sinus rhythm. No acute ST segment changes with a rate of 60. Followup EKG on 06/12/19 with a rate of 68, regular sinus rhythm showing some LV hypertrophy and appears to have small Q waves in the inferior leads in II, III, and aVF. DISPOSITION: The patient will be discharged via ambulance transport to [facility] today. She is in stable condition. DIET: Heart healthy, diabetic as tolerated. ACTIVITY: Progress activity as tolerated. FOLLOWUPS: The patient should follow up with Dr. Kelly Jesus, her primary care provider within a week of discharge from her facility. Can follow up on an as needed basis with Cardiology with Dr. Mendez or Dr. Bowman again as needed. DISPOSITION: Discharged in stable condition to [facility]. TIME SPENT: Forty-five minutes on discharge planning. GERHARD RAO NP [id number]/CPS #: [id number]/CPS #: [id number] LALITA
== END 2019-06-13 14:24 | DRG 542 ==
LOC: ED 13:29 → MED 21:05 → MEDTELE 06-11 14:59
PROVIDERS: ADMIT Internal Medicine; ATTEND Internal Medicine
DX: M48.56XA Collapsed vertebra, not elsewhere classified, lumbar region, initial encounter for fracture (principal); I21.4 Non-ST elevation (NSTEMI) myocardial infarction; S22.41XA Multiple fractures of ribs, right side, initial encounter for closed fracture; F02.81 Dementia in other diseases classified elsewhere, unspecified severity, with behavioral disturbance; N17.9 Acute kidney failure, unspecified; G93.40 Encephalopathy, unspecified; J90 Pleural effusion, not elsewhere classified; E11.9 Type 2 diabetes mellitus without complications; Z66 Do not resuscitate; I48.0 Paroxysmal atrial fibrillation; E86.0 Dehydration; G30.9 Alzheimer's disease, unspecified; R00.1 Bradycardia, unspecified; E03.9 Hypothyroidism, unspecified; R09.02 Hypoxemia; M19.019 Primary osteoarthritis, unspecified shoulder; I10 Essential (primary) hypertension; M47.816 Spondylosis without myelopathy or radiculopathy, lumbar region; E78.5 Hyperlipidemia, unspecified; M85.819 Other specified disorders of bone density and structure, unspecified shoulder; I95.1 Orthostatic hypotension; W18.30XA Fall on same level, unspecified, initial encounter; Y92.099 Unspecified place in other non-institutional residence as the place of occurrence of the external cause; Z79.84 Long term (current) use of oral hypoglycemic drugs; Z79.1 Long term (current) use of non-steroidal anti-inflammatories (NSAID); Z79.82 Long term (current) use of aspirin; Z79.899 Other long term (current) drug therapy; Z82.49 Family history of ischemic heart disease and other diseases of the circulatory system; Z87.891 Personal history of nicotine dependence; I34.0 Nonrheumatic mitral (valve) insufficiency
CPT/HCPCS: 36415; 70450; 72070; 72100; 72131; 80048; 80053; 81003; 81015; 82550; 82553; 83735; 83880; 84484; 85025; 85610; 87641; 90686; 93005; 93306; 99284; A9270-GY; G8978-GP-CK; G8978-GP-CM; G8979-GP-CI; G8979-GP-CJ; G8987-GO-CL; G8988-GO-CI; J0360; J1644; J2270; J2405

== ENCOUNTER 2019-07-13 23:07 | Emergency (ER) | payer MEDICARE, BC ==
--- NOTE | 2019-07-13 23:35 | ED ---
Adult Trauma - HPI Summary HPI Summary: 88-year-old female presents with fall today today. Patient has history of dementia so history is unreliable (LEVEL 5 CAVET due to dementia). She denies any pain. No chest pain or shortness breath. she denies any neck pain or back pain. denies any hip pain. Her records do not show any blood thinners. No information is provided by [facility] but EMS said that she fell in the lobby and was no LOC. - History of Current Complaint Chief Complaint: EDFall Stated Complaint: FALL PER EMS Time Seen by Provider: 07/13/19 23:18 Pain Intensity: 0 - Additional Pertinent History Primary Care Physician: [id number] - Allergy/Home Medications Allergies/Adverse Reactions: Allergies Allergy/AdvReac Type Severity Reaction Status Date / Time No Known Allergies Allergy Verified 07/13/19 23:38 PMH/Surg Hx/FS Hx/Imm Hx Endocrine/Hematology History: Reports: Hx Diabetes Denies: Hx Anticoagulant Therapy Cardiovascular History: Reports: Hx Hypertension Denies: Hx Pacemaker/ICD History: Denies: Hx Renal Disease, Other Problems/Disorders - bladder prolapse per ED report Sensory History: Reports: Hx Contacts or Glasses Denies: Hx Hearing Aid Opthamlomology History: Reports: Hx Contacts or Glasses Neurological History: Reports: Hx Dementia Psychiatric History: Denies: Hx Panic Disorder - Surgical History Surgery Procedure, Year, and Place: hysterectomy, year unknown. CHOLYCESTECTOMY. CATARACT Infectious Disease History: No Infectious Disease History: Denies: Traveled Outside the [place] in Last 30 Days - Family History Known Family History: Positive: Unknown - LEVEL 5 CAVEAT: Unobtainable due to dementia, Non-Contributory - Social History Alcohol Use: Rare Alcohol Amount: "very very little, a little wine" Hx Substance Use: No Substance Use Type: Reports: None Hx Tobacco Use: Yes Smoking Status (MU): Former Smoker Review of Systems Negative: Fever Negative: Chest Pain Negative: Shortness Of Breath Negative: Headache All Other Systems Reviewed And Are Negative: Yes Physical Exam Triage Information Reviewed: Yes Vital Signs On Initial Exam: Initial Vitals Temp Pulse Resp BP Pulse Ox 96.3 F 59 16 172/87 94 07/13/19 23:20 07/13/19 23:20 07/13/19 23:20 07/13/19 23:20 07/13/19 23:20 Vital Signs Reviewed: Yes Appearance: Positive: Well-Appearing Skin: Positive: Warm, Dry Head/Face: Positive: Normal Head/Face Inspection Eyes: Positive: Normal, Conjunctiva Clear ENT: Positive: Pharynx normal Neck: Positive: Other: - nontender neck Respiratory/Lung Sounds: Positive: Clear to Auscultation, Breath Sounds Present Cardiovascular: Positive: Normal, RRR Musculoskeletal: Positive: Normal, Other - nontender hip, lower or upper extremity pain Neurological: Positive: Sensory/Motor Intact, CN Intact II-III. Negative: Alert , Oriented to Person Place, Time Psychiatric: Positive: Normal - Greer Coma Scale Best Eye Response: 4 - Spontaneous Best Motor Response: 6 - Obeys Commands Best Verbal Response: 4 - Confused Coma Scale Total: 14 Procedures - Sedation Patient Received Moderate/Deep Sedation with Procedure: No Diagnostics - Vital Signs Vital Signs Temp Pulse Resp BP Pulse Ox 07/13/19 23:20 96.3 F 59 16 172/87 94 - Laboratory Lab Statement: Any lab studies that have been ordered have been reviewed, and results considered in the medical decision making process. - CT brain CT Interpretation Completed By: Radiologist Summary of CT Findings: 1. No traumatic intracranial abnormalities. 2. Age- related atrophy and moderate chronic small vessel ischemic disease. neck CT Interpretation Completed By: Radiologist Summary of CT Findings: IMPRESSION: 1. No cervical spine traumatic abnormalities. 2. Mild multilevel cervical spondylopathy. 3. Right thyroid lobe nodule. No followup imaging indicated per ACR guidelines. Re-Evaluation - Re-Evaluation First Eval Re-Evaluation Time: 00:57 Comment: still no pain Adult Trauma Course/Dx - Course Course Of Treatment: 88-year-old female presents with fall today today. Patient has history of dementia so history is unreliable (LEVEL 5 CAVET due to dementia). She denies any pain. No chest pain or shortness breath. she denies any neck pain or back pain. denies any hip pain. Her records do not show any blood thinners. No information is provided by [facility] but EMS said that she fell in the lobby and was no LOC. on exam patient is alert to person only. Has otherwise normal neuro exam. No sign of trauma on exam. CT brain shows no acute findings CT neck shows no acute findings. will discharge back to [facility]. - Diagnoses Differential Diagnosis/HQI/PQRI: Positive: Abrasion(s), Contusion(s), Fracture Provider Diagnoses: Fall Discharge ED - Sign-Out/Discharge Documenting (check all that apply): Patient Departure - Discharge Plan Condition: Good Disposition: HOME Patient Education Materials: Fall Prevention for Older Adults (ED) Referrals: Kelly Campos MD [Primary Care Provider] - Additional Instructions: take tyenlol every 6 hours as needed for pain follow up with primary within 5 days Return to ED if develop any new or worsening symptoms - Billing Disposition and Condition Condition: GOOD Disposition: Home
--- OUTSIDE RECORDS SUMMARY | 2019-07-13 23:55 | XMS REPORT | Continuity of Care Document ---
:1930 External Reference #:[id number] Author Name Nataly Howe M.D. (transmitted by agent of provider Araceli Romero) Address [address] [place] [id number] Care Team Providers Name Role Phone Kelly Jesus MD - Family Care Team Information Hand Packer [phone] Medicine Problems Active Problems Provider Date Alzheimer's disease Skyla Vincent MD Onset: 12/20/2016 Nervous system symptoms Skyla Vincent MD Onset: 12/16/2015 Unspecified dementia without behavioral disturbance Skyla Vincent MD Onset: Social History Type Date Description Comments Sex Unknown ETOH Use Denies alcohol use Tobacco Use Start: Unknown Patient has never smoked Smoking Status Reviewed: 02/08/19 Patient has never smoked Exercise Type/Frequency Exercises rarely Allergies, Adverse Reactions, Alerts Description No Known Drug Allergies Medications Active Medications SIG Qnty Indications Ordering Date Provider Donepezil HCL 1 every night 90tabs F03.90 Skyla Vincent, 07/21/2016 5mg Tablets Acetaminophen 2 tablets by Unknown 325mg Tablets mouth q 4 hour prn Levothyroxine Sodium 1 by mouth Unknown 50mcg Monday-Monday Tablets only Levothyroxine Sodium 1 by mouth every Unknown 25mcg Monday and Tablets Monday only Alendronate Sodium 1 by mouth Unknown 70mg Tablets weekly on Tuesdays Metoprolol Tartrate 1/2 tab by mouth Unknown 25mg Tablets twice a day Simvastatin take 1 tablet at Unknown 10mg Tablets bedtime Vitamin D3 1 by mouth every Unknown 1000Unit Tablets day Aspirin 1 chew tab by Unknown 81mg Chewable mouth every day Ibuprofen 1 po q 6 hr prn Unknown 600mg Tablets Lisinopril 1 by mouth every Unknown 40mg Tablets day Ranitidine HCL take one tablet Unknown 150mg Tablets by mouth twice a day Metformin HCL 1 by mouth a day Unknown 500mg Tablets Cerovite Senior qd Unknown Tablets Hydrochlorothiazide 1 by mouth every Unknown 12.5mg day Tablets Melatonin 1 or 2 at 6 pm Unknown 3mg Tablets Sub for Immunizations Description No Information Available Vital Signs Date Vital Result Comment 02/08/2019 10:10am Height 62 inches 5'2" Weight 203.12 lb Heart Rate 61 /min BP Systolic Sitting 138 mmHg BP Diastolic Sitting 66 mmHg O2 % BldC Oximetry 96 % BMI (Body Mass Index) 37.1 kg/m2 01/22/2018 12:59pm Height 62 inches 5'2" Weight 195.50 lb Heart Rate 84 /min BP Systolic 138 mmHg BP Diastolic 78 mmHg BMI (Body Mass Index) 35.8 kg/m2 Results Description No Information Available Procedures Description No Information Available Medical Devices Description No Information Available Encounters Type Date Location Provider Dx Diagnosis Office Visit 02/08/2019 [facility] Reynold Jasso, G30.1 Alzheimer's 10:00a [facility] Danica disease with late onset F02.80 Dementia in oth diseases classd elswhr w/o behavrl disturb Assessments Date Code Description Provider 02/08/2019 G30.1 Alzheimer's disease with late onset Reynold Jasso M.D. 02/08/2019 F02.80 Dementia in other diseases classified Reynold Jasso M.D. elsewhere without beha Plan of Treatment Future Appointment(s):02/10/2020 10:00 am - Javed Hull N.P. at [facility]02/08/2019 - Reynold Jasso M.D.G30.1 Alzheimer's disease with late onsetFollow up:1 year and as needed ok with JoshF02.80 Dementia in other diseases classified elsewhere without beha Functional Status Description No Information Available Mental Status Description No Information Available Referrals Description No Information Available
--- OUTSIDE RECORDS SUMMARY | 2019-07-13 23:55 | XMS REPORT | Continuity of Care Document ---
:1930 External Reference #:[id number] Author Name Nataly Howe M.D. (transmitted by agent of provider Araceli Romero) Address [address] [place] [id number] Care Team Providers Name Role Phone Kelly Jesus MD - Family Care Team Information [employer] Supervisor Medicine Problems Active Problems Provider Date Alzheimer's [...] Location Provider Dx Diagnosis Office Visit 02/08/2019 [facility] Reynold Jasso, G30.1 Alzheimer's 10:00a [facility] Danica disease with late onset F02.80 Dementia in oth diseases classd elswhr w/o behavrl disturb Assessments Date Code Description Provider 02/08/2019 G30.1 Alzheimer's disease with late onset Reynold Jasso M.D. 02/08/2019 F02.80 Dementia in other diseases classified Reynold Jasso M.D. elsewhere without beha Plan of Treatment Future Appointment(s):02/10/2020 10:00 am - Javed Hull N.P. at [facility]02/08/2019 - Reynold Jasso M.D.G30.1 Alzheimer's disease with late onsetFollow up:1 year and as needed ok with JoshF02.80 Dementia in other diseases classified elsewhere without beha Functional Status Description No Information Available Mental Status Description No Information Available Referrals Description No Information Available
[2019-07-14 01:17] VITALS: BP 187/94
== END 2019-07-14 01:16 | disposition home or self-care (01) ==
LOC: ED 23:07
DX: S10.91XA Abrasion of unspecified part of neck, initial encounter (principal); W19.XXXA Unspecified fall, initial encounter; Y92.129 Unspecified place in nursing home as the place of occurrence of the external cause; M48.9 Spondylopathy, unspecified; E04.1 Nontoxic single thyroid nodule; F03.90 Unspecified dementia, unspecified severity, without behavioral disturbance, psychotic disturbance, mood disturbance, and anxiety; E11.9 Type 2 diabetes mellitus without complications; I10 Essential (primary) hypertension; Z87.891 Personal history of nicotine dependence
CPT/HCPCS: 70450; 72125; 99282